=== PATIENT | male | born 1955 | race Caucasian/White ===

== ENCOUNTER → 2016-08-09 | Outpatient (CLI) | payer BC ==
[~2016-08-09] MED LIST: ALLO100T PO; AMLO-114 PO; CRDCD240 PO; HYDR50TA3 PO; METO1TAB71 PO; METO50TA16 PO; NAPR-1169 PO; POTA10CA28 PO; PRD10 PO; SULF-183 PO; ZNTT/150 PO
== END | disposition home or self-care (01) ==
LOC: C.LABPBG 15:34
PROVIDERS: ATTEND Internal Medicine
DX: Z11.59 Encounter for screening for other viral diseases (principal)

== ENCOUNTER 2016-08-22 14:36 | Inpatient (IN) | payer BC ==
[~2016-08-22] VITALS: Ht 162.6 cm; Wt 113.4 kg
[2016-08-22] MEDS ORDERED: METOPROLOL TARTRATE 1 MG/ML VIAL IV STA (14:59)
[2016-08-22] MEDS ORDERED: DILTIAZEM HCL 5 MG/ML 5 ML VIAL IV STA ×3 (15:04→15:50)
[2016-08-22] MEDS ORDERED: DILTIAZEM BOLUS / DRIP IV STA ×2 (15:04→16:24)
[2016-08-22] MEDS ORDERED: DILTIAZEM HCL INJ 125 MG in DEXTROSE 5% 100ML IV PRN (15:15)
[2016-08-22 15:17] LABS: BASO % 0.4 %; BASO ABS # 0.06 K/uL (0-0.2); COMPLETE YES; EOS % 0.1 %; HEMATOCRIT 46.2 % (42-52); IG% 0.4 %; LYMPH % 10.1 %; LYMPH ABS # 1.58 K/uL (1.2-3.4); MEAN CELL VOLUME 94.5 fL (80-100); MEAN CORPUSCULAR HEMOGLOBIN 33.9 pg (25-34); MEAN CORPUSCULAR HGB CONC 35.9 g/dl (32-36); MEAN PLATELET VOLUME 8.8 fL (7.4-10.4); MONO % 14.4 %; NEUT % 74.6 %; PLATELET COUNT 171 K/uL (130-400); RED BLOOD COUNT 4.89 M/uL (4.7-6.1); WHITE BLOOD COUNT 15.57 K/uL (4.8-10.8)
[2016-08-22 15:27] LABS: INR 1.1 (0.9-1.1); PARTIAL THROMBOPLASTIN RATIO 1.2
[2016-08-22] MEDS ORDERED: SODIUM CHLORIDE 0.9% 500ML 500 ML IV STA (15:27)
[2016-08-22] MEDS ORDERED: SULF-183 PO (15:30)
[2016-08-22] MEDS ORDERED: POTA10CA28 PO (15:30)
[2016-08-22] MEDS ORDERED: AMLO-114 PO (15:30)
[2016-08-22] MEDS ORDERED: NAPR-1169 PO (15:30)
[2016-08-22] MEDS ORDERED: HYDR50TA3 PO (15:30)
[2016-08-22] MEDS ORDERED: ZNTT/150 PO (15:30)
[2016-08-22] MEDS ORDERED: ALLO100T PO (15:30)
[2016-08-22] MEDS ORDERED: METO50TA16 PO (15:30)
--- NOTE | 2016-08-22 15:31 | DIAGNOSTIC IMAGING REPORT ---
SINGLE VIEW CHEST CLINICAL HISTORY: Atypical chest pain. FINDINGS: An AP, portable, upright chest radiograph is compared to study dated 03/30/2006. The examination is degraded by portable technique, apical lordotic positioning, large body habitus, and patient rotation. The heart is top normal for projection. There is mild atherosclerotic calcification of the thoracic aorta. The pulmonary vasculature is noncongested. Chronic elevation of the right hemidiaphragm and interstitial thickening are similar to previous. No airspace consolidation, large pleural effusion, or pneumothorax is seen. The bony thorax is grossly intact. There is chronic posttraumatic deformity of the left clavicle. Postoperative change is suggested in the left humeral head. IMPRESSION: No acute cardiopulmonary abnormality. Electronically signed by: Dimitris Collins M.D. 08/22/2016 3:30 PM Dictated Date/Time: 08/22/2016 3:29 PM
[2016-08-22 15:34] LABS: BUN/CREATININE RATIO 11.1 (10-20); CALCIUM 9.3 mg/dl (8.5-10.1); CREATININE 1.4 mg/dl (0.60-1.40); POTASSIUM 3.9 mmol/L (3.5-5.1)
[2016-08-22] MEDS ORDERED: ACETAMINOPHEN 500 MG TAB PO STA (15:45)
[2016-08-22] MEDS ORDERED: NITROGLYCERIN 0.4 MG SL PER TAB CHARGE SL PRN (16:30)
[2016-08-22] MEDS ORDERED: MAGNESIUM HYDROXIDE SUSP 30 ML UDC PO PRN (16:30)
[2016-08-22] MEDS ORDERED: ONDANSETRON INJ 2 MG/ML 2 ML VIAL IV PRN (16:30)
[2016-08-22] MEDS ORDERED: ALUMINUM/MAGNESIUM/SIMETH (MAALOX MAX) 30 ML UDC PO PRN (16:30)
[2016-08-22 16:50] VITALS: O2SAT 92; Ht 162.6 cm; Wt 113.4 kg
[2016-08-22] MEDS ORDERED: HydrALAZINE HCL 20 MG/ML VIAL IV PRN (17:00)
[2016-08-22 17:02] LABS: INFLUENZA A PCR Neg for Influ A (NEG); INFLUENZA B PCR Neg for Influ B (NEG)
[2016-08-22 17:10] VITALS: BP 98/62; PULSE 67; TEMP 37.1; O2SAT 92
--- NOTE | 2016-08-22 18:11 | DIAGNOSTIC IMAGING REPORT ---
CT SCAN OF THE BRAIN WITHOUT IV CONTRAST CLINICAL HISTORY: Headache. COMPARISON STUDY: No priors. TECHNIQUE: Unenhanced axial CT scan of the brain is performed from the vertex to the skull base. Automated dose control exposure was utilized. CT DOSE: 687.98 mGy.cm FINDINGS: Brain parenchyma: The brain parenchyma is normal in appearance. There is no hemorrhage, mass effect, or evidence of acute territorial ischemia by CT criteria. Gutierrez-white matter is preserved. No extra-axial fluid collection is seen. Ventricles, sulci, cisterns: Normal in configuration. Intracranial vasculature: The visualized intracranial vasculature at the skull base is normal in appearance. Calvarium: Unremarkable. Sinuses and mastoids: The visualized paranasal sinuses are clear. The mastoid air cells are well pneumatized. Orbits: The bony orbits are grossly intact. IMPRESSION: No acute intracranial abnormality. Electronically signed by: Dimitris Collins M.D. 08/22/2016 4:35 PM Dictated Date/Time: 08/22/2016 4:34 PM
[2016-08-22] MEDS ORDERED: NURSING VERBAL MED ORDER ONE (18:15)
--- NOTE | 2016-08-22 18:18 | HISTORY & PHYSICAL EXAMINATION ---
DATE OF ADMISSION: 08/22/2016 CHIEF COMPLAINT: Fever and generalized illness. ADMITTING DIAGNOSES: 1. Atrial flutter, rapid ventricular response. 2. Febrile illness. HISTORY OF PRESENT ILLNESS: Mr. Bonds is a 60-year-old male who does suffer from PSVT in the past. He currently was wearing a Holter monitor prescribed by Dr. Valdez to try to catch his arrhythmia. The patient states over the last 1 week's time he has had a flu-like illness with significant frontal headache and a fever up to 101. The patient says he has had myalgias and arthralgias associated with this. Preceding this symptom complex, the patient has been intermittently bothered by a pilonidal cyst at the apex of his gluteal fold over the last few months. When he did visit Dr. Valdez to begin evaluation for this flu-like illness, the pilonidal cyst looked more inflamed according to the patient. At that point in time, Dr. Valdez prescribed Bactrim-DS and the patient has been on it for approximately 1 week's time. The patient has, however, been feeling poorly with his generalized fatigue, illness and headache. He says his head is pounding. The patient has had a cough but suppresses his cough due to this pounding headache. The patient saw [facility] earlier in the day of admission when he was found to have a racing heart, presented to the ER, and was found to be in atrial flutter with rapid ventricular response. The patient received 2 boluses of Cardizem and a Cardizem drip was started at 10 mg an hour. The patient was being wheeled to CAT scan for imaging of his head due to his headache when he broke into sinus rhythm. Currently, the patient is comfortable. He says he still feels somewhat achy and his headache is better. He has had no subjective experience of the palpitations during his hospital stay but in the past he has had subjective experience of this. He states that this pilonidal cyst is generally much better. Over the last week's time; however, he says he felt like he had the flu. He has had episodes of shaking and chills that in the evening, but he has had no other sore throats, visual changes, focused pain in his abdomen, cough significant of mucus production or focused pain in his extremities. The patient is recommended for admission due to his atrial flutter, rapid ventricular response. PAST MEDICAL HISTORY: For hypertension; he has had poor cholesterol, although he is on any dyslipidemic medication; gout; GERD; previous kidney stone; previous SVT and this longstanding history of a pilonidal cyst. MEDICATIONS: Allopurinol 300 a day, Norvasc 10 mg a day, hydrochlorothiazide 50 a day, metoprolol tartrate 50 b.i.d., potassium 10 a day, currently on Bactrim-DS for 1 week, Zantac 150 at bedtime p.r.n. and naproxen p.r.n. SOCIAL HISTORY: The patient quit smoking in June 2016, says he typically would smokes cigars. He drinks alcohol occasionally. 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 FAMILY HISTORY: Positive for diabetes, but no history of heart disease. REVIEW OF SYSTEMS: Ten systems are reviewed and are negative unless listed above. PHYSICAL EXAMINATION: GENERAL: This is a pleasant gentleman. He is overweight with a BMI of 43. This limits his ability to get around. VITAL SIGNS: He is afebrile in our ER at 37.2; his heart rate was up to 150, currently is 72; respiration rate 18; BP 138/79; O2 sat 92 on 4 liters. There is no check on room air, however. HEENT: PERRL, EOMI. His oropharynx is clear. There is no exudate or erythema. His sinuses are nontender to percussion. His tympanic membranes have some clear fluid behind the left TM. NECK: Without lymphadenopathy. Trachea is midline. He has no stridor. HEART: Currently regular. There is no systolic murmur. LUNGS: Clear without wheezes or crackles. Good air movement. BACK: His spine is nontender, his CVA angle are nontender, and his pilonidal cyst, there is evidence of the cyst opening but there is no erythema, bogginess, or firmness around the cyst at the apex of his gluteal fold. ABDOMEN: Obese, normoactive bowel sounds present, is soft. I hear no bruits. I cannot assess for organomegaly due to his obesity. EXTREMITIES: Without cyanosis, clubbing or edema. NEUROLOGIC: He is awake, alert and appropriate. Cranial nerves II-XII are intact. Equal symmetrical strength and sensation in upper and lower extremities. SKIN: Other than pilonidal cyst is without lesions, growths, bruises or bleeding, but he does have chronic mycotic changes to his great toes on both feet and his toenails. LABORATORY DATA: He does have an elevation of his white count of 15,000, H\T\H of 16 and 46, platelet count of 171. Currently pending sed rate. BUN and creatinine 16 and 1.4, glucose 114. His BNP is up at 1109, normal being 900. TSH is pending. Serology for Lyme disease and influenza are pending. IMAGING DATA: Chest x-ray is no acute cardiopulmonary findings. EKG was initially atrial flutter. His CT scan of his head was performed. It is not formally read. To my vision, there is no acute hemorrhage or mass. ASSESSMENT AND PLAN: A 60-year-old male here with atrial flutter with rapid ventricular response, which is new; recent febrile illness of undetermined cause. For the atrial flutter, the patient will be maintained on his metoprolol tartrate with his Cardizem drip. We will hold his Norvasc and his hydrochlorothiazide at this time. We will augment any rate control problems and continue metoprolol and if he remains in sinus rhythm for a period of time, we will transition him to metoprolol tartrate either b.i.d. or t.i.d. at higher doses and hold the drip altogether. We will check cardiac enzymes and an echocardiogram, especially given the fact that he has an elevation of his BNP. A cardiology consultation will also be undertaken. A sed rate was drawn in case the patient may have endocarditis given the fact that he may have had a preceding pilonidal cyst infection for some time and could have had bacteremia from it. Likewise, a Lyme disease will also be undertaken. For the cyst as mentioned, this could have been bacteremia or systemic inflammatory response syndrome given the fact that he has some histories of chills and shivering. We will maintain his Bactrim at this time and blood cultures are undertaken. Because of his complaints that he felt like this with the flu, influenza will be undertaken also. Deep venous thrombosis prevention is based upon enoxaparin. The patient was continuing to be counseled with smoking cessation.
[2016-08-22] MEDS: OXYCODONE HCL IR 5 MG TAB (IMMEDIATE RELEASE) PO PRN (19:23)
[2016-08-22 19:55] VITALS: BP 114/66; PULSE 81; TEMP 37; O2SAT 95
[2016-08-22] MEDS: ENOXAPARIN 40 MG/0.4 ML SYR SC SCH (20:37)
[2016-08-22] MEDS: METOPROLOL TARTRATE 50 MG TAB PO SCH (20:37)
[2016-08-22] MEDS: SULFAMETHOXAZOLE/TRIMETHOPRIM DS 800/160MG TAB PO SCH (20:37)
--- NOTE | 2016-08-22 21:24 | EMERGENCY ROOM VISIT NOTE ---
History Report prepared by Snehal: Kendal Bruno Under the Supervision of: Dr. Amari Herrera M.D. First contact with patient: 14:50 Chief Complaint: ILLNESS Stated Complaint: SHORT OF BREATH,ABNORMAL EKG History of Present Illness The patient is a 60 year old male who presents to the Emergency Room with complaints of worsening illness that started two days ago. The patient was seen at [facility] earlier today and they recommended that he come into the ED for further evaluation. At [facility], the patient was SOB and had a fever of 101. Upon arrival to the ED, the patient's EKG revealed atrial fibrillation with RVR. The patient does not notice that his heart is racing and he denies any history of atrial fibrillation. The patient states that he has been experiencing a cold for the past couple weeks and it never seemed to go away. He developed a frontal headache two days ago that radiated into his temples. The patient is also experiencing an intermittent dry cough, but he states that he tries not to cough because it causes his head "to pound." He states that he has also been experiencing generalized body aches, chills, and sweating over last two days. He states that he feels like he had a fever the other day although he did not take his temperature. Additionally, he is experiencing intermittent nausea, but denies vomiting. The patient adds that he is experiencing intermittent chest pain along the bottom of his rib cage that started last night after he experienced dyspnea on exertion. He describes the pain as pressure and originally he was not experiencing chest pain here, but after laying down he developed some pain. The pain subsided on its own after a couple minutes and the patient is without chest pain again. The patient states that he is still experiencing shortness of breath. He denies lower extremity edema. The patient currently has a Holter monitor in place, which he states was put on one month ago. He states that he got the Holter monitor because over the last two years he has experienced three episodes, one this year and two last year, where his blood pressure drops and his pulse goes into the 160s. The patient has a history of hypertension, but denies any history of diabetes or heart disease. Source of History: patient Onset: two days ago Position: other (global) Quality: other (illness) Timing: worsening Associated Symptoms: + SOB, + chest pain (along bottom of rib cage), + chills, + cough (intermittent, dry), + fevers, + headache (frontal radiating into temples), + nausea, No vomiting Note: tachycardia, atrial fibrillation, generalized body aches, sweating, no lower extremity edema Review of Systems See HPI for pertinent positives & negatives. A total of 10 systems reviewed and were otherwise negative. Past Medical & Surgical Medical Problems: (1) Atrial fibrillation with RVR (2) Hypertension Surgical Problems: (1) History of cholecystectomy Family History No pertinent family history Social History Smoking Status: Former Smoker Marital Status: Housing Status: lives with family Current/Historical Medications Scheduled Allopurinol (Zyloprim), 200 MG PO QAM Amlodipine (Norvasc), 10 MG PO QAM Hydrochlorothiazide (Hctz), 50 MG PO QAM Metoprolol Tartrate (Lopressor) (Lopressor), 50 MG PO BID Potassium Chloride (Micro-K Ext Rel), 10 MEQ PO QAM Sulfamethoxazole-Trimethoprim (Smz-Tmp Ds), 1 TAB PO BID Scheduled PRN Naproxen (Naprosyn), 500 MG PO BID PRN for Pain Ranitidine (Zantac), 150 MG PO DAILY PRN for Indigestion Allergies Coded Allergies: No Known Allergies (Verified , 08/22/16) Physical Exam Vital Signs Date Time Temp Pulse Resp B/P Pulse Ox O2 Delivery O2 Flow Rate FiO2 08/22/16 16:17 152 138/79 92 Nasal Cannula 4.0 08/22/16 16:05 123 129/98 93 Nasal Cannula 4.0 08/22/16 15:56 147 18 153/122 92 Nasal Cannula 4.0 08/22/16 15:38 150 14 115/73 94 Nasal Cannula 4.0 08/22/16 15:32 150 17 127/78 94 Nasal Cannula 4.0 08/22/16 15:27 143 19 115/89 95 Nasal Cannula 4.0 08/22/16 15:15 96 Room Air 08/22/16 15:13 150 08/22/16 14:40 37.2 156 18 104/70 94 Room Air Physical Exam Constitutional: Vital signs reviewed. Eyes: Pupils are equal round reactive to light. Conjunctiva are noninjected. ENT: Pharynx is clear without erythema or exudate. Mucous membranes are moist. Neck supple without meningeal signs. Respiratory: Clear to auscultation bilaterally. Breath sounds are equal bilaterally. Cardiovascular: Heart rate is 150 with an irregular rhythm. No rubs or gallops. GI: Soft, nondistended and nontender. Bowel sounds are present. Musculoskeletal: No peripheral edema. No lower extremity tenderness. Integumentary: No cyanosis. Neurological: The patient is awake and alert. Cranial nerves II-XII are intact. Motor is 5 out of 5 all extremities. Sensation is intact to light touch all extremities. Normal speech. No pronator drift. Psychiatric: Normal affect. Medical Decision & Procedures ER Provider Diagnostic Interpretation: X-ray results as stated below per interpretation by me and the radiologist. Other radiology results as stated below per my review and the radiologist's interpretation: SINGLE VIEW CHEST IMPRESSION: No acute cardiopulmonary abnormality. Electronically signed by: Dimitris Collins M.D. 08/22/2016 3:30 PM Dictated Date/Time: 08/22/2016 3:[address] SCAN OF THE BRAIN WITHOUT IV CONTRAST IMPRESSION: No acute intracranial abnormality. Electronically signed by: Dimitris Collins M.D. 08/22/2016 4:35 PM Dictated Date/Time: 08/22/2016 4:34 PM Laboratory Results 08/22/16 15:00 Red Blood Count 4.89, Mean Corpuscular Volume 94.5, Mean Corpuscular Hemoglobin 33.9, Mean Corpuscular Hemoglobin Concent 35.9, Mean Platelet Volume 8.8, Neutrophils (%) (Auto) 74.6, Lymphocytes (%) (Auto) 10.1, Monocytes (%) (Auto) 14.4, Eosinophils (%) (Auto) 0.1, Basophils (%) (Auto) 0.4, Neutrophils # (Auto ) 11.60, Lymphocytes # (Auto) 1.58, Monocytes # (Auto) 2.24, Eosinophils # (Auto ) 0.02, Basophils # (Auto) 0.06 08/22/16 15:00 Test 08/22/16 15:00 08/22/16 15:12 08/22/16 15:23 White Blood Count 15.57 K/uL (4.8-10.8) Red Blood Count 4.89 M/uL (4.7-6.1) Hemoglobin 16.6 g/dL (14.0-18.0) Hematocrit 46.2 % (42-52) Mean Corpuscular Volume 94.5 fL (80-100) Mean Corpuscular Hemoglobin 33.9 pg (25-34) Mean Corpuscular Hemoglobin Concent 35.9 g/dl (32-36) Platelet Count 171 K/uL (130-400) Mean Platelet Volume 8.8 fL (7.4-10.4) Neutrophils (%) (Auto) 74.6 % Lymphocytes (%) (Auto) 10.1 % Monocytes (%) (Auto) 14.4 % Eosinophils (%) (Auto) 0.1 % Basophils (%) (Auto) 0.4 % Neutrophils # (Auto) 11.60 K/uL (1.4-6.5) Lymphocytes # (Auto) 1.58 K/uL (1.2-3.4) Monocytes # (Auto) 2.24 K/uL (0.11-0.59) Eosinophils # (Auto) 0.02 K/uL (0-0.5) Basophils # (Auto) 0.06 K/uL (0-0.2) RDW Standard Deviation 46.5 fL (36.4-46.3) RDW Coefficient of Variation 13.5 % (11.5-14.5) Immature Granulocyte % (Auto) 0.4 % Immature Granulocyte # (Auto) 0.07 K/uL (0.00-0.02) Erythrocyte Sedimentation Rate 58 mm/hr (0-14) Prothrombin Time 12.0 SECONDS (9.0-12.0) Prothromb Time International Ratio 1.1 (0.9-1.1) Activated Partial Thromboplast Time 31.0 SECONDS (21.0-31.0) Partial Thromboplastin Ratio 1.2 Anion Gap 13.0 mmol/L (3-11) Est Creatinine Clear Calc Drug Dose 65.8 ml/min Estimated GFR () 63.3 Estimated GFR (Non- 54.6 BUN/Creatinine Ratio 11.1 (10-20) Calcium Level 9.3 mg/dl (8.5-10.1) Pro-B-Type Natriuretic Peptide 1109 pg/ml (0-900) Thyroid Stimulating Hormone (TSH) 3.180 uIu/ml (0.300-4.500) Lyme Disease IgG Antibody NEG (NEG) Hepatitis C Antibody Screen NEG (NEG) Bedside Troponin I 0.010 ng/ml (0-0.045) Influenza Type A (RT-PCR) Neg for Influ A (NEG) Influenza Type B (RT-PCR) Neg for Influ B (NEG) Laboratory results as reviewed by me. Medications Administered Medications (Trade) Dose Ordered Sig/Bernie Route Start Time Stop Time Status Last Admin Dose Admin Diltiazem HCl 10 mg 10 mg NOW STAT IV 08/22/16 15:04 08/22/16 15:06 DC 08/22/16 15:04 10 MG Diltiazem HCl/ Dextrose (Cardizem Inj/D5 100ml) 125 ml @ 0 mls/hr Q0M PRN IV 08/22/16 15:15 08/22/16 18:18 DC 08/22/16 15:24 10 MLS/HR Diltiazem HCl 10 mg 10 mg NOW STAT IV 08/22/16 15:27 08/22/16 15:28 DC 08/22/16 15:30 10 MG Sodium Chloride (Nss 500ml) 500 ml @ 999 mls/hr Q31M STAT IV 08/22/16 15:27 08/22/16 15:57 DC 08/22/16 15:30 999 MLS/HR Acetaminophen (Tylenol Tab) 1,000 mg NOW STAT PO 08/22/16 15:45 08/22/16 15:46 DC 08/22/16 15:50 1,000 MG Diltiazem HCl (Cardizem Inj) 10 mg NOW STAT IV 08/22/16 15:50 08/22/16 15:51 DC 08/22/16 15:55 10 MG ECG Indication: chest pain, tachycardia Rate (beats per minute): 143 Rhythm: atrial fibrillation (with RVR) Findings: left axis deviation, other (LBBB) Comparison ECG Date: no prior available Change: Second EKG on 08/22/2016 revealed atrial flutter with 2 to 1 conduction, rate of 149, LBBB ED Course 1454: The patient was evaluated in room C7. A complete history and physical exam was performed. 1504: Ordered Diltiazem HCl 10 mg IV 1515: Ordered Diltiazem [id number] mg/Dextrose 125 ml @ 0 mls/hr Protocol IV 1522: I reassessed the patient. His heart rate is 150 and his blood pressure is 107/53. He received 10 mg of Cardizem and they are starting the Cardizem drip now. The patient is not experiencing any chest pain at this time. 1523: The charge nurse called the patient's Holter monitor event monitoring company. They said that there are no recordings for the past two days and the most recent recording was on August 20, which showed a normal sinus rhythm. 1527: Ordered Sodium Chloride 500 ml @ 999 mls/hr IV, Diltiazem HCl 10 mg IV 1535: I reassessed and updated the patient. I informed him that his troponin was negative. His heart rate is 104 and his blood pressure is 115/73. I asked the nurse to get a repeat EKG. He denies any chest pain. 1545: Ordered Tylenol Tab 1000 mg PO 1548: I spoke with Dr. Cruz of the [facility]. We discussed the patient and his results. The patient will be further evaluated by him. 1549: The nurse informed me that the patient's heart rate went back up when I left the room. I am going to order another Cardizem bolus. 1550: Ordered Diltiazem HCl 10 mg IV 1601: Upon reevaluation, the patient is resting comfortably. His heart rate is 114 and his systolic blood pressure is 127. He has no chest discomfort, but he is still complaining of a headache. I discussed tonight's findings with him. He verbalized agreement of the treatment plan. The patient will be evaluated for further management. Medical Decision This is a 60-year-old male who presents with chest discomfort, fever, flulike symptoms and tachycardia. Differential diagnosis includes unstable angina, MS, influenza, pneumonia, sepsis, dysrhythmia, atrophic fibrillation. I did perform a limited focused review of portions of the patient's old chart on the electronic medical record. The patient has had no recent pertinent visits to this hospital. I did evaluate the patient as noted above. The patient is presenting with dyspnea on exertion since yesterday. He also developed intermittent chest pressure. He is currently not having any chest pressure. He states he has had a fever and has been sick for several weeks. He does complain of a headache but he is neurologically intact and does not have any meningeal signs. He was seen at an urgent care center and sent here because he had a left bundle-branch block on 12-lead EKG and a fever of 101. IV access was established. The patient was placed on a continuous threat monitoring analyst. The patient has tachycardia. He is mildly hypotensive. I did order and personally review the patient's 12-lead EKG and chest x-ray as described above. He has atrial fibrillation with RVR. I did treat him with several doses of Cardizem IV. He received 3 boluses and was started on a drip. He was given normal saline IV as he had transient hypotension from the Cardizem. His heart rate did improve significantly and he remained chest pain-free. He did have a left bundle branch block but no signs of acute ischemia on the 12-lead EKG. I did order and review the patient's blood work as noted in the electronic medical record. His white blood cell count is 15,000. Troponin is negative. The patient states his headache is improved but he has been having a headache since Tuesday. As the patient will likely be anticoagulated because of A. fib, I did order a CT of the head. I did review the images myself as well as the radiology report as described above. There is no evidence of intracranial hemorrhage. I did reassess the patient multiple times in the ED. His heart rate improved significantly. He remained on the Cardizem drip. I did discuss the case with the hospitalist and special education case manager for admission. Consults Time Called: [phone] Consulting Physician: Dr. Cruz - [facility] Returned Call: [phone] Cruz of the [facility]. We discussed the patient and his results. The patient will be further evaluated by him. Impression Primary Impression: Atrial fibrillation with rapid ventricular response Additional Impressions: Fever Exertional chest pain Headache Critical Care I have personally spent 35 minutes of critical care time in the direct management of this patient. This includes bedside care, interpretation of diagnostic studies, and testing, discussion with consultants, patient, and family members, and other required patient management activities. This 35 minutes is in excess of all separately billable procedures. Scribe Attestation The scribe's documentation has been prepared under my direct and personally reviewed by me in its entirety. I confirm that the note above accurately reflects all work, treatment, procedures, and medical decision making performed by me. Departure Information Dispostion Being Evaluated By Hospitalist Franco Staley M.D. (PCP) Patient Instructions My [facility] Problem Qualifiers Additional Impressions: Fever Fever type: unspecified Qualified Codes: R50.9 - Fever, unspecified Headache Headache type: unspecified Headache chronicity pattern: acute headache Intractability: not intractable Qualified Codes: R51 - Headache
[2016-08-22] MEDS: MoRPHine SULFATE 2 MG/ML CARP IV PRN (21:51)
[2016-08-22 23:16] LABS: CKMB/CK RATIO 0.7 (0-3.0)
[2016-08-22 23:52] VITALS: BP 120/76; PULSE 95; TEMP 37.2; O2SAT 93
[2016-08-23] VITALS (13 sets, daily range): BP systolic 102–119; BP diastolic 62–73; PULSE 65–155; TEMP 36.6–39.2; O2SAT 88–93
[2016-08-23] MEDS: METOPROLOL TARTRATE 1 MG/ML VIAL IV PRN (02:19)
[2016-08-23] MEDS ORDERED: DILTIAZEM BOLUS / DRIP IV STA (02:35)
[2016-08-23] MEDS ORDERED: DILTIAZEM HCL 5 MG/ML 5 ML VIAL IV SCH (02:45)
[2016-08-23] MEDS: DILTIAZEM HCL INJ 125 MG in DEXTROSE 5% 100ML IV PRN ×3 (02:47→12:04)
[2016-08-23] MEDS: ACETAMINOPHEN 325 MG TAB PO PRN ×2 (03:19→15:31)
[2016-08-23] MEDS: MoRPHine SULFATE 2 MG/ML CARP IV PRN (04:31)
[2016-08-23] MEDS: METOPROLOL TARTRATE 50 MG TAB PO SCH ×3 (06:00→21:37)
[2016-08-23 06:52] LABS: HEMATOCRIT 45.8 % (42-52); MEAN CORPUSCULAR HEMOGLOBIN 33.5 pg (25-34); MEAN CORPUSCULAR HGB CONC 35.6 g/dl (32-36); MEAN PLATELET VOLUME 9.1 fL (7.4-10.4); PLATELET COUNT 168 K/uL (130-400); RED BLOOD COUNT 4.87 M/uL (4.7-6.1); WHITE BLOOD COUNT 11.17 K/uL (4.8-10.8)
[2016-08-23 07:30] LABS: BUN/CREATININE RATIO 14.6 (10-20); CALCIUM 8.6 mg/dl (8.5-10.1); CREATININE 1.7 mg/dl (0.60-1.40); POTASSIUM 3.6 mmol/L (3.5-5.1)
[2016-08-23 07:34] LABS: CHOLESTEROL/HDL RATIO 4.7; CKMB/CK RATIO 0.5 (0-3.0)
[2016-08-23] MEDS: SULFAMETHOXAZOLE/TRIMETHOPRIM DS 800/160MG TAB PO SCH (08:05)
[2016-08-23] MEDS: ASPIRIN 81 MG ECTAB PO SCH (08:05)
[2016-08-23] MEDS ORDERED: ALLOPURINOL 100 MG TAB PO SCH (09:00)
[2016-08-23] MEDS ORDERED: PERFLUTREN LIPID MICROSPHERE (DEFINITY) IV ONE (09:17)
--- NOTE | 2016-08-23 10:15 | Progress Note ---
Subjective Date of Service: Aug 23, 2016. (María Vaz PA-C) Subjective Pt evaluation today including: conversation w/ patient, physical exam, chart review, lab review, review of studies, review of inpatient medication list Patient seen and evaluated. Patient in and out of atrial flutter overnight. Documented fever of 39.2 this morning and treated with Tylenol. Patient reporting chills and diaphoresis overnight. Continues to complain of a frontal headache that he describes as squeezing in bandlike suggestive of tension headache. -- No meningeal signs appreciated on exam Reports history of kidney stones and states that he gets intermittent flank pain and has noticed dark urine -- Reports these are similar signs he had prior to past stones Reports bleeding with pilonidal cyst but denies any pain (María Vaz PA-C) Problem List Medical Problems: (1) Atrial fibrillation with rapid ventricular response Status: Acute (2) Exertional chest pain Status: Acute (3) Fever Status: Acute (4) Headache Status: Acute (5) Hypertension Status: Chronic Surgical Problems: (1) History of cholecystectomy Status: Chronic (María Vaz PA-C) Review of Systems Constitutional: + chills, + fever, + problem reported (frontal headache), + sweats Eyes: No worsening of vision ENT: No nasal symptoms, No sore throat, No trouble swallowing Respiratory: + dyspnea on exertion, No cough, No dyspnea at rest Cardiac: No chest pain Abdomen: + nausea, No constipation, No diarrhea, No pain, No vomiting Musculoskeletal: + joint pain, + muscle pain Male : No dysuria Skin: No rash (María Vaz PA-C) Medications Current Inpatient Medications Medications (Trade) Dose Ordered Sig/Bernie Route Start Time Stop Time Status Last Admin Dose Admin Enoxaparin Sodium (Lovenox Inj) 40 mg Q24H SC 08/22/16 21:00 09/21/16 20:59 08/22/16 20:37 40 MG Acetaminophen (Tylenol Tab) 650 mg Q4H PRN PO 08/22/16 16:30 09/21/16 16:29 08/23/16 03:19 650 MG Al Hydrox/Mg Hydrox/Simethicone (Maalox Max Susp) 15 ml Q4H PRN PO 08/22/16 16:30 09/21/16 16:29 Magnesium Hydroxide (Milk Of Magnesia Susp) 30 ml Q12H PRN PO 08/22/16 16:30 09/21/16 16:29 Ondansetron HCl (Zofran Inj) 4 mg Q6H PRN IV 08/22/16 16:30 09/21/16 16:29 Nitroglycerin (Nitrostat Tab) 0.4 mg UD PRN SL 08/22/16 16:30 09/21/16 16:29 Aspirin (Ecotrin Tab) 81 mg QAM PO 08/23/16 09:00 09/22/16 08:59 08/23/16 08:05 81 MG Metoprolol Tartrate (Lopressor Tab) 50 mg Q8 PO 08/22/16 22:00 09/21/16 21:59 08/23/16 08:05 50 MG Metoprolol Tartrate (Lopressor Iv) 5 mg Q4H PRN IV 08/22/16 17:00 09/21/16 16:59 08/23/16 02:19 5 MG Hydralazine HCl (HydrALAZINE INJ) 10 mg Q4H PRN IV 08/22/16 17:00 09/21/16 16:59 Trimethoprim/ Sulfamethoxazole (Septra Ds 800/ 160MG Tab) 1 tab Q12 PO 08/22/16 21:00 09/01/16 20:59 08/23/16 08:05 1 TAB Morphine Sulfate (MoRPHine SULFATE INJ) 4 mg Q4H PRN IV 08/22/16 18:45 09/05/16 18:44 Morphine Sulfate (MoRPHine SULFATE INJ) 2 mg Q4H PRN IV 08/22/16 18:45 09/05/16 18:44 08/23/16 04:31 2 MG Oxycodone HCl (Roxicodone Immediate Rel Tab) 10 mg Q6 PRN PO 08/22/16 18:45 09/05/16 18:44 08/22/16 19:23 10 MG Allopurinol 200 mg 200 mg HS PO 08/23/16 21:00 09/22/16 20:59 Diltiazem HCl/ Dextrose (Cardizem Inj/D5 100ml) 125 ml @ 0 mls/hr Q0M PRN IV 08/23/16 02:45 09/22/16 02:44 08/23/16 12:04 10 MLS/HR (María Vaz PA-C) Objective Vital Signs Date Time Temp Pulse Resp B/P Pulse Ox O2 Delivery O2 Flow Rate FiO2 08/23/16 08:00 Room Air 08/23/16 07:44 37.2 76 16 107/67 93 Room Air 08/23/16 06:01 119/68 08/23/16 04:30 36.9 92 108/62 92 Nasal Cannula 2.0 08/23/16 04:30 36.9 08/23/16 04:00 Room Air 08/23/16 03:15 39.2 147 18 102/67 88 Room Air 08/23/16 03:00 149 109/71 08/23/16 02:45 155 108/68 08/23/16 02:19 150 116/66 08/22/16 23:59 Room Air 08/22/16 23:52 37.2 95 18 120/76 93 Room Air 08/22/16 20:00 Room Air 08/22/16 19:55 37.0 81 18 114/66 95 Room Air 08/22/16 17:10 37.1 67 18 98/62 92 Room Air 08/22/16 16:50 92 Room Air 08/22/16 16:17 152 138/79 92 Nasal Cannula 4.0 08/22/16 16:05 123 129/98 93 Nasal Cannula 4.0 08/22/16 15:56 147 18 153/122 92 Nasal Cannula 4.0 08/22/16 15:38 150 14 115/73 94 Nasal Cannula 4.0 08/22/16 15:32 150 17 127/78 94 Nasal Cannula 4.0 08/22/16 15:27 143 19 115/89 95 Nasal Cannula 4.0 08/22/16 15:15 96 Room Air 08/22/16 15:13 150 08/22/16 14:40 37.2 156 18 104/70 94 Room Air (María Vaz PA-C) Physical Exam General Appearance: WD/WN, no apparent distress Eyes: sclerae normal ENT: hearing grossly normal Neck: supple, no adenopathy, thyroid normal, no JVD, trachea midline Respiratory/Chest: lungs clear, normal breath sounds, no respiratory distress, no accessory muscle use Cardiovascular: regular rate, rhythm, no gallop, no murmur Abdomen: normal bowel sounds, non tender, soft Extremities: no pedal edema, no calf tenderness Neurologic/Psychiatric: alert, oriented x 3 Skin: normal color, warm/dry, + pertinent finding (pilonidal cyst with punctate opening and evidence of minimal bleeding; no evidence of purulent drainage; surround skin without erythema; no tenderness to palpation) (María Vaz, GABE) Laboratory Results Last 24 Hours Test 08/22/16 15:00 08/22/16 15:12 08/22/16 15:23 08/22/16 22:25 White Blood Count 15.57 K/uL Red Blood Count 4.89 M/uL Hemoglobin 16.6 g/dL Hematocrit 46.2 % Mean Corpuscular Volume 94.5 fL Mean Corpuscular Hemoglobin 33.9 pg Mean Corpuscular Hemoglobin Concent 35.9 g/dl Platelet Count 171 K/uL Mean Platelet Volume 8.8 fL Neutrophils (%) (Auto) 74.6 % Lymphocytes (%) (Auto) 10.1 % Monocytes (%) (Auto) 14.4 % Eosinophils (%) (Auto) 0.1 % Basophils (%) (Auto) 0.4 % Neutrophils # (Auto) 11.60 K/uL Lymphocytes # (Auto) 1.58 K/uL Monocytes # (Auto) 2.24 K/uL Eosinophils # (Auto) 0.02 K/uL Basophils # (Auto) 0.06 K/uL RDW Standard Deviation 46.5 fL RDW Coefficient of Variation 13.5 % Immature Granulocyte % (Auto) 0.4 % Immature Granulocyte # (Auto) 0.07 K/uL Erythrocyte Sedimentation Rate 58 mm/hr Prothrombin Time 12.0 SECONDS Prothromb Time International Ratio 1.1 Activated Partial Thromboplast Time 31.0 SECONDS Partial Thromboplastin Ratio 1.2 Sodium Level 135 mmol/L Potassium Level 3.9 mmol/L Chloride Level 98 mmol/L Carbon Dioxide Level 24 mmol/L Anion Gap 13.0 mmol/L Blood Urea Nitrogen 16 mg/dl Creatinine 1.40 mg/dl Est Creatinine Clear Calc Drug Dose 65.8 ml/min Estimated GFR () 63.3 Estimated GFR (Non- 54.6 BUN/Creatinine Ratio 11.1 Random Glucose 114 mg/dl Calcium Level 9.3 mg/dl Pro-B-Type Natriuretic Peptide 1109 pg/ml Thyroid Stimulating Hormone (TSH) 3.180 uIu/ml Lyme Disease IgG Antibody NEG Hepatitis C Antibody Screen NEG Bedside Troponin I 0.010 ng/ml Influenza Type A (RT-PCR) Neg for Influ A Influenza Type B (RT-PCR) Neg for Influ B Total Creatine Kinase 123 U/L Creatine Kinase MB 0.9 ng/ml Creatine Kinase MB Ratio 0.7 Troponin I 0.019 ng/ml Test 08/23/16 06:33 White Blood Count 11.17 K/uL Red Blood Count 4.87 M/uL Hemoglobin 16.3 g/dL Hematocrit 45.8 % Mean Corpuscular Volume 94.0 fL Mean Corpuscular Hemoglobin 33.5 pg Mean Corpuscular Hemoglobin Concent 35.6 g/dl RDW Standard Deviation 46.8 fL RDW Coefficient of Variation 13.6 % Platelet Count 168 K/uL Mean Platelet Volume 9.1 fL Sodium Level 135 mmol/L Potassium Level 3.6 mmol/L Chloride Level 101 mmol/L Carbon Dioxide Level 22 mmol/L Anion Gap 12.0 mmol/L Blood Urea Nitrogen 25 mg/dl Creatinine 1.70 mg/dl Est Creatinine Clear Calc Drug Dose 53.4 ml/min Estimated GFR () 50.0 Estimated GFR (Non- 43.2 BUN/Creatinine Ratio 14.6 Random Glucose 113 mg/dl Calcium Level 8.6 mg/dl Total Creatine Kinase 109 U/L Creatine Kinase MB 0.5 ng/ml Creatine Kinase MB Ratio 0.5 Troponin I 0.024 ng/ml Triglycerides Level 169 mg/dl Cholesterol Level 149 mg/dl HDL Cholesterol 32 mg/dl LDL Cholesterol, Calculated 83 mg/dl VLDL Cholesterol, Calculated 34 mg/dl Cholesterol/HDL Ratio 4.7 (María Vaz, PA-C) Assessment and Plan Mr. Bonds is a 60 y/o male with HTN, Kidney Stones, Gout, SVT, and a Pilonidal Cyst who presents due to flu-like symptoms and tachycardia. He is noted to be febrile with A Flutter on monitor Fever of Unknown Etiology: Myalgias/Arthralgias/Tension RYAN - Sed rate elevated at 58, Lyme negative, influenza PCR negative - Febrile at 39.2 overnight and treated with Tylenol; leukocytosis trending down - BCx - pending - UCx - without growth - Repeat urinalysis to evaluate for sediment in the setting of a kidney stone -- Will pursue further imaging pending urinalysis - Obtain a procalcitonin Atrial Flutter with RVR: Currently NSR - Cardiac enzymes - negative - Echo - pending - ASA 81 mg daily - Diltiazem drip - plan to D/C when rhythm is stabilized -- Continue to hold amlodipine 10 mg daily while on drip - Metoprolol 50 mg TID with Metoprolol 5 mg IV PRN - Consult Cardiology - appreciate recommendations Pilonidal Cyst: - Bactrim 1 tablet BID - Consideration as source of fever however site is pain free in no obvious signs of infection - May need possible surgical consultation? HTN: - Hold HCTZ 50 mg daily - Cover with hydralazine PRN Gout: - No evidence of active gout or erythematous joints suggesting cause of fever - Allopurinol 200 mg daily DVT Prophylaxis: - Lovenox 40 mg SC daily Code Status: FULL RESUSCITATION Disposition: - Possible DC 1-2 days Continued [facility] stay due to: fever Discharge planning: home (María Vaz, DUGLASC) Attending Attestation: Pt seen/examined, chart reviewed, care plan d/w PA María Vaz. I agree w/ the mackey components of her documentation. Pt "just feels terrible." Continues with headache, fatigue, fever, chills, sweats, anorexia. Denies neck pain. Minimal cough. No abd pain, nausea, emesis. No tick bites recently or in the past. No recent travel or sick contacts. VSS, febrile gen - nontoxic, a/o x 3 neck - lymphadenopathy b/l, each about 1.5cm in size; NO MENINGISMUS or RIGIDITY heart - RRR, s1, s2 lungs - CTA b/l with ? rales right base abd - soft, liver edge mildly palpable, no spleen, obese ext - no edema lymphadenopathy - no axillary or inguinal lymphadenopathy skin - no rash; pilonidal cyst tract/opening in gluteal cleft; thin serous drainage noted; NO erythema or surrounding fluctuance; NO tenderness to palpation labs - sed rate 58 Cr 1.7 WBC 11,000 blood cx's neg to date urine cx neg A/P: 1. Fever - unknown origin - has SIRS, possible sepsis check KUB x-rays to exclude stones check CXR to r/o pneumonia missed on previous chest film consider CT chest/abd/pelvis if plain films inconclusive if still no source then consider viral studies and tick-borne illness (HIV, ehrlichia, CMV, EBV, parvo, etc) consider drug fever (bactrim) he has NO signs of meningitis clinically - defer on LP for now, but low threshold for doing it with persistent symptoms the pilonidal cyst appears stable and I do not feel it represents the source for infection would d/c the bactrim place on IV abx pending cultures 2. acute kidney injury - 2nd to sepsis? bactrim? other? restart IVF BMP am 3. a. flutter/fib - appreciate cardiology consult & recs Lesa FERRO MD (Gabe Ferro MD)
--- NOTE | 2016-08-23 13:19 | Clinical Documentation Query ---
JAZLYN Tate : CLINICAL DOCUMENTATION QUERY Patient is a 60 year old male admitted for the evaluation and treatment of atrial flutter with RVR and febrile illness of undetermined cause. Admission BUN and creatinine were 16 mg/dl and 1.40 mg/dl. Values 06/10/16 were 18 mg/dl and 1.10 mg/dl. Repeat testing this a.m. (08/23) demonstrated values of 25 mg/dl and 1.70 mg/dl. He is being monitored by serial chemistries and at risk due to medications, atrial flutter with RVR, and poor intake associated with ongoing febrile illness. In your clinical opinion is this patient being managed for: (x ) Acute kidney failure ( ) Other explanation of clinical findings (Please Explain) ( ) Unable to determine (Please Define) ( ) Need to Discuss ( ) Not Agree The medical record reflects the following clinical findings, treatment, and risk factors. Clinical Indicators: As above Treatment: IVF, serial chemistries. Risk Factors: Medications, atrial flutter with RVR, poor intake associated with febrile illness Please clarify and document your clinical opinion in the progress notes and discharge summary. Terms such as "probable", "suspected", "likely", "questionable", "possible", or "still to be ruled out" are acceptable. IF IN AGREEMENT, YOU MUST DOCUMENT ABOVE DIAGNOSTIC STATEMENT IN DAILY PROGRESS NOTES AND DISCHARGE SUMMARY. This document is not part of the patient's record. Thank You, Gonzalez Paniagua, WILLAM [phone]
--- NOTE | 2016-08-23 14:22 | CARDIOLOGY CONSULTATION REPORT ---
DATE OF CONSULTATION: 08/23/2016 REASON FOR CONSULTATION: 1. Paroxysmal atrial flutter/paroxysmal atrial fibrillation with RVR. 2. Newly diagnosed LBBB. 3. CHADS-VASc score is 2. HISTORY OF PRESENT ILLNESS: Mr. Bonds is a very pleasant 60-year-old white male with a history of longstanding Hypertension, untreated Dyslipidemia, obesity, GERD, gout, nephrolithiasis, pilonidal cyst with recent drainage, and a history of PSVT (diagnosed a couple of years ago) who presented acutely to [facility] with an acute febrile illness along with newly diagnosed Atrial Flutter with RVR. The patient states that for the past week or more, he has been experiencing fever, frontal headaches, myalgias, arthralgias and general malaise. He was also being treated for drainage from his pilonidal cyst. He had been on antibiotics. Because he felt poorly, he sought medical treatment at [facility]. He was identified to have an elevated heart rate, and an EKG confirmed the presence of Atrial Flutter with 2:1 AV conduction. He was subsequently referred to our Emergency Room. The patient was placed on IV diltiazem and also started on oral metoprolol and has subsequently converted back to a normal sinus rhythm. His echocardiogram is pending, and we will need to evaluate his LV systolic function in light of his recently diagnosed LBBB. The patient offers no complaints at the present time. He specifically denies any chest pain, heaviness, tightness or pressure. He denies any neck, jaw, back or arm pain. He has not experienced any shortness of breath, unusual dyspnea on exertion, orthopnea or PND. Does not have any palpitations currently but could feel them with his atrial fibrillation and atrial flutter. He denies any syncope, but has been having "dizziness" for the past week whenever he bends over and stands up very quickly. The patient denies any history of bleeding disorders or peptic ulcer disease. He has no history of stroke or mini stroke. MEDICATIONS: 1. Allopurinol 200 mg daily. 2. Aspirin 81 mg daily. 3. Diltiazem drip. 4. Lopressor 50 mg p.o. q. 8 hours. 5. Lovenox 40 mg subcutaneous injection every 24 hours. 6. Septra DS 1 tablet b.i.d. 7. Morphine sulfate 2-4 mg IV q. 4 hours p.r.n. for pain. 8. OxyIR 10 mg p.o. q. 6 hours p.r.n. for pain. 9. IV Lopressor 5 mg q. 4 hours p.r.n. for ventricular rate greater than 120 beats per minute. 10. Hydralazine 10 mg IV q. 4 hours p.r.n. for elevated blood pressure. 11. Tylenol p.r.n. 12. Maalox Max. 13. Milk of magnesia p.r.n. 14. Zofran p.r.n. 15. Sublingual nitroglycerin p.r.n. ALLERGIES: NKDA. PAST MEDICAL HISTORY: 1. Longstanding hypertension. 2. Untreated dyslipidemia. 3. Impaired fasting glucose. 4. GERD. 5. Gout. 6. History of nephrolithiasis. 7. Currently draining pilonidal cyst. 8. Status post laparoscopic cholecystectomy. 9. History of rotator cuff repair. 10. Paroxysmal supraventricular tachycardia per patient. I do not have any of his old tracings. 11. Newly diagnosed LBBB. 12. Newly diagnosed paroxysmal atrial flutter/paroxysmal atrial fibrillation with RVR, he has currently converted back to a normal sinus rhythm. SOCIAL HISTORY: The patient is . 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 He previously smoked cigars but quit in June 2014. Drinks alcohol on occasion. FAMILY HISTORY: Significant for diabetes mellitus, no family history of premature coronary artery disease. PHYSICAL EXAMINATION: VITAL SIGNS: Temperature is 37.2 degrees Celsius, pulse is 76 and regular, respiratory rate is 16 and unlabored, blood pressure is 107/67. SpO2 is 93% on room air. GENERAL: The patient is in no acute distress. HEENT: Head is atraumatic, normocephalic. EOMs intact. Sclerae anicteric. Facies symmetric. No perioral cyanosis. Mucous membranes moist. NECK: Without thyromegaly, adenopathy or JVD. Carotid upstrokes +2 bilaterally without bruits. CHEST AND LUNGS: Clear to auscultation throughout all lung rojo. No wheezes, rales or rhonchi. CARDIOVASCULAR: S1 and S2 are regular, distant without obvious murmur, gallop or rub. PMI is nonpalpable. No lifts, heaves, or thrills. No abdominal aortic or renal bruits. ABDOMINAL EXAMINATION: Bowel sounds present. No masses, organomegaly or tenderness. EXTREMITIES: Without clubbing or cyanosis. Trace ankle edema on the left, none on the right. Intact posterior tibial and radial pulses bilaterally. NEUROLOGIC: The patient is awake, alert and oriented. Pleasant and cooperative. Answers questions appropriately. Speech is clear. Normal movement in all 4 extremities. Gait pattern not assessed. Echocardiogram is pending. EKGs have shown sinus rhythm to AFib with RVR, atrial flutter with RVR and a left bundle branch block pattern. LABORATORY DATA: White blood cell count is 11.17, hemoglobin 16.3 g/dL, hematocrit 45.8%, platelet count 168,000. Sodium is 135 mmol/L, potassium 3.6 mmol/L, BUN 25 mg/dL, creatinine 1.70 mg/dL. Random glucose 113 mg/dL, total CKs are 109 and 123 units/L with respect to CK-MBs of 0.5 and 0.9 ng/mL. Troponin I levels are 0.024, 0.019 and 0.010 ng/mL. Total cholesterol is 149 mg/dL with an HDL of 32 mg/dL and an LDL cholesterol of 83 mg/dL. TSH is normal at 3.180 uIU/mL. Lyme titer negative. Negative for influenza A or influenza B. Sedimentation rate is markedly elevated at 58 mm/hour. ASSESSMENT: 1. Newly diagnosed Paroxysmal Atrial Flutter with rapid ventricular response, Paroxysmal Atrial Fibrillation with rapid ventricular response. 2. History of PSVT 3. Newly diagnosed LBBB. 4. Hypertension. 5. Dyslipidemia. 6. No history of stroke or mini stroke. 7. No angina pectoris or anginal equivalent symptoms. 8. No signs or symptoms of heart failure. PLAN: 1. The patient has converted back to a normal sinus rhythm spontaneously. 2. Continue Lopressor 50 mg p.o. q. 8 hours. 3. Convert to oral calcium channel javi. 4. Recommend discharging to home on Eliquis or Xarelto to reduce the risk of stroke associated with atrial fibrillation / atrial flutter. 5. We had very long discussion regarding the natural history of atrial fibrillation and atrial flutter, what each of these rhythms is, and various management strategies. He verbalized understanding of this discussion. 6. At some point, we would consider an EP study with possible ablation. Theoretically, his SVT could have occurred and led to his various atrial dysrhythmias. Therefore, doing an ablation of an accessory pathway may help prevent these atrial dysrhythmias. Could also consider an atrial flutter ablation. 7. I will discuss further with Dr. Crespo. 8. Await echocardiogram results. 9. We will continue to follow along while hospitalized. DERIK
--- NOTE | 2016-08-23 15:02 | DIAGNOSTIC IMAGING REPORT ---
KUB CLINICAL HISTORY: eval for any kidney stone nephrocalcinosis COMPARISON STUDY: No previous studies for comparison. FINDINGS: Bilateral renal calcifications. These measure from 2 to 6 mm. No definite perivertebral calcifications. Bowel pattern is nonobstructive. IMPRESSION: Bilateral nephrocalcinosis. Electronically signed by: Kurt Garcia M.D. 08/23/2016 3:01 PM Dictated Date/Time: 08/23/2016 3:00 PM
[2016-08-23] MEDS: OXYCODONE HCL IR 5 MG TAB (IMMEDIATE RELEASE) PO PRN ×2 (15:33→21:38)
[2016-08-23] MEDS: MoRPHine SULFATE 4 MG/ML 1 ML CARP\\VIAL IV PRN (15:33)
--- NOTE | 2016-08-23 15:39 | DIAGNOSTIC IMAGING REPORT ---
TWO VIEW CHEST CLINICAL HISTORY: Atypical chest pain.. FINDINGS: PA and lateral chest radiographs are compared to study dated 08/22/2016. The heart appears mildly enlarged. The pulmonary vasculature is noncongested. Mild elevation of right hemidiaphragm is unchanged and there is bibasilar atelectasis. No airspace consolidation or pleural effusion is seen. There is no pneumothorax. The bony thorax appears intact. Surgical anchors are present in the left humeral head. Cholecystectomy clips are noted in the right upper quadrant. IMPRESSION: Mild cardiac enlargement with no acute cardiopulmonary abnormality. Electronically signed by: Dimitris Collins M.D. 08/23/2016 3:38 PM Dictated Date/Time: 08/23/2016 3:36 PM
--- NOTE | 2016-08-23 16:34 | DIAGNOSTIC IMAGING REPORT ---
ABDOMEN AND PELVIS CT WITHOUT CONTRAST CT DOSE: 2442.23 mGy.cm HISTORY: Generalized abdominal pain. R/O Movement of Renal Calculi and Stone Obstruction TECHNIQUE: Multiaxial CT images of the abdomen and pelvis were performed without the use of intravenous and oral contrast according to the standard department stone protocol. COMPARISON STUDY: KUB 08/23/2016. FINDINGS: Mild bibasilar subsegmental atelectasis. Mild subcarinal lymphadenopathy which is partially imaged on this study. Tiny fat-containing umbilical hernia. Cholecystectomy. Hepatic steatosis. The unenhanced spleen, adrenal glands, and pancreas are unremarkable. Multiple subcentimeter retroperitoneal and mesenteric lymph nodes. There is also mild periportal lymphadenopathy. Dominant periportal lymph node measures 4.0 x 1.6 cm. Normal bladder. Suboptimal evaluation for bowel pathology due to the lack of intravenous and oral contrast. However, there is no definite bowel wall thickening or obstruction. Normal appendix. Multiple bilateral renal calculi. The largest stone is seen within the lower pole of the right kidney and measures 6 mm. No ureteral stones. No hydronephrosis. There is a 8 mm stone within the right renal pelvis. This does not result in obstruction. IMPRESSION: 1. Bilateral nephrolithiasis. There is also an 8 mm stone within the right renal pelvis. No hydronephrosis. No ureteral calculi. 2. Cholecystectomy. 3. Hepatic steatosis. 4. No bowel wall thickening or obstruction. 5. Mildly enlarged periportal lymph nodes. There are also partially imaged mildly enlarged subcarinal lymph nodes. This could represent a lymphoproliferative disorder. Electronically signed by: Dennis Guevara M.D. 08/23/2016 4:33 PM Dictated Date/Time: 08/23/2016 4:24 PM
[2016-08-23] MEDS: DILTIAZEM HCL 60 MG TAB PO SCH ×3 (16:46→23:19)
--- NOTE | 2016-08-23 16:54 | DIAGNOSTIC IMAGING REPORT ---
CT OF THE CHEST WITHOUT IV CONTRAST CLINICAL HISTORY: Dyspnea on exertion. Evaluate for pneumonia. Atrial fibrillation. COMPARISON STUDY: Chest radiograph August 22, 2016. TECHNIQUE: Axial images of the chest were obtained without IV contrast. Images were reviewed in the axial, sagittal, and coronal planes. IV contrast was not administered for this examination. FINDINGS: There are multiple mildly enlarged mediastinal and bilateral hilar lymph nodes. An index right paratracheal node measures 2.3 x 1.5 cm. An index subcarinal node measures 1.5 cm. Hilar nodes are suboptimally assessed on this unenhanced exam but a left hilar node measures approximately 1.4 cm in short axis diameter. The size of the heart is normal. There is no pericardial effusion. Central airways are patent. No consolidation to suggest pneumonia is present. Linear and groundglass subpleural opacity suggests atelectasis. There is no pneumothorax or pleural effusion. There is mild subpleural reticulation with honeycombing. No suspicious osseous lesions are present. There is fatty infiltration of the liver. The gallbladder is surgically absent. Mildly enlarged portacaval lymph nodes are noted. IMPRESSION: 1. No consolidation to suggest pneumonia. 2. Mild mediastinal and bilateral hilar lymphadenopathy. This is nonspecific and differential considerations include a lymphoproliferative process such as lymphoma as well as granulomatous processes. 3. Fatty liver. Electronically signed by: Ruben Andre M.D. 08/23/2016 4:52 PM Dictated Date/Time: 08/23/2016 4:46 PM
[2016-08-23 17:16] LABS: URINE APPEARANCE CLEAR (CLEAR); URINE BILIRUBIN NEG (NEG); URINE COLOR DK YELLOW; URINE NITRITE NEG (NEG); URINE PH 5.5 (4.5-7.5); URINE SPECIFIC GRAVITY 1.022 (1.000-1.030); UROBILINOGEN NEG (NEG); ZZUR CULT IF INDIC CLEAN CATCH NO
[2016-08-23 17:38] LABS: MANUAL MICROSCOPIC REQUIRED? NO; REVIEW REQ? NO
--- NOTE | 2016-08-23 18:20 | ECHOCARDIOGRAM REPORT ---
*NOTICE TO RECEIVING LIBERTARIAN AGENCY This information is strictly Confidential and protected under [place] law. [place] law prohibits you from making any further disclosure of this information unless further disclosure is expressly permitted by the written consent of the person to whom it pertains or is authorized by law. A general authorization for the release of medical or other information is not sufficient for this purpose. Hospital accepts no responsibility if the information is made available to any other person, INCLUDING THE PATIENT. Interpretation Summary * Name: RIP OSHEA Study Date: 08/23/2016 08:15 AM BP: 107/67 mmHg * Patient Location: [facility] HR: 76 * : 1955 (M/d/yyyy) Gender: Male Height: 64 in * Age: 60 yrs Ethnicity: [place] Weight: 256 lb * Ordering Physician: Amari Cruz * Referring Physician: Self, Referred * Performed By: Thania Mendes RDCS * * Reason For Study: AFLUTTER * BSA: 2.2 m2 * History: AFLUTTER * -- Conclusions -- * 1. Normal LV size. Borderline concentric LVH. * 2. Normal LV function. LVEF 55-60%. Abnormal septal motion consistent with conduction abnormality. * 3. Normal RV size and function. * 4. No significant valvular pathology. * 5. No prior studies for comparison. Procedure Details * A contrast injection of Definity was performed to improve assessment of LV function. * Contrast was injected into an intravenous site in the right arm. * One vial of Definity ultrasound contrast was diluted in normal saline to a total volume of 10 ml. A total of '2' ml of solution was administered during imaging. * Lot # [id number] of Definity utilized for procedure. * Expiration date 1 JUL 31. * The attending nurse who injected the contrast agent was RUPAL HAND RN. Left Ventricle * The left ventricle is grossly normal size. * There is borderline concentric left ventricular hypertrophy. * Focal thickening of the basal septum with no evidence of left ventricular outflow obstruction. * Ejection Fraction = 55-60%. * Septal motion is consistent with conduction abnormality. Right Ventricle * The right ventricle is grossly normal size. * The right ventricular systolic function is normal as assessed by tricuspid annular plane systolic excursion (TAPSE) (normal >1.5 cm). Atria * The left atrial size is normal. * Right atrial size is normal. * No ASD detected; PFO is not assessed. Mitral Valve * The mitral valve is grossly normal. * There is no mitral valve stenosis. * There is trace mitral regurgitation. Tricuspid Valve * The tricuspid valve is not well visualized, but is grossly normal. * There is no tricuspid stenosis. * Significant tricuspid regurgitation is absent. Aortic Valve * The aortic valve is not well visualized. * No hemodynamically significant valvular aortic stenosis. * There is no significant aortic regurgitation. Pulmonic Valve * The pulmonary valve is not well seen, but the Doppler examination is normal without significant regurgitation or stenosis. Great Vessels * The aortic root and proximal ascending aorta are normal sized. * No Doppler or imaging evidence of an aortic coarctation. Pericardium/Pleural * There is no pericardial effusion. Left Ventricular Diastolic Function * Diastolic dysfunction. MMode 2D Measurements and Calculations IVSd 1.3 cm IVSs 1.6 cm LVIDd 5.3 cm LVIDs 3.6 cm LVPWd 0.99 cm LVPWs 1.7 cm IVS/LVPW 1.3 FS 31.9 % EDV(Teich) 136.8 ml ESV(Teich) 55.4 ml EF(Teich) 59.5 % EDV(cubed) 151.0 ml ESV(cubed) 47.7 ml EF(cubed) 68.4 % % IVS thick 24.8 % % LVPW thick 68.6 % LV mass(C)d 237.6 grams LV mass(C)dI 109.4 grams/m\S\2 LV mass(C)s 231.3 grams LV mass(C)sI 106.5 grams/m\S\2 SV(Teich) 81.4 ml SI(Teich) 37.5 ml/m\S\2 SV(cubed) 103.3 ml SI(cubed) 47.6 ml/m\S\2 Ao root diam 3.0 cm Ao root area 6.9 cm\S\2 LA dimension 4.8 cm LA/Ao 1.6 LVAd ap4 46.3 cm\S\2 LVLd ap4 9.5 cm EDV(MOD-sp4) 177.5 ml EDV(sp4-el) 191.4 ml LVAs ap4 28.1 cm\S\2 LVLs ap4 8.1 cm ESV(MOD-sp4) 84.6 ml ESV(sp4-el) 83.0 ml EF(MOD-sp4) 52.3 % EF(sp4-el) 56.7 % LVAd ap2 30.5 cm\S\2 LVLd ap2 8.5 cm EDV(MOD-sp2) 89.5 ml EDV(sp2-el) 93.1 ml LVAs ap2 18.5 cm\S\2 LVLs ap2 8.0 cm ESV(MOD-sp2) 34.7 ml ESV(sp2-el) 36.2 ml EF(MOD-sp2) 61.3 % EF(sp2-el) 61.1 % LVLd %diff -11.76 % EDV(MOD-bp) 134.9 ml LVLs %diff -0.68 % ESV(MOD-bp) 53.6 ml EF(MOD-bp) 60.3 % SV(MOD-sp4) 92.9 ml SI(MOD-sp4) 42.8 ml/m\S\2 SV(MOD-sp2) 54.8 ml SI(MOD-sp2) 25.2 ml/m\S\2 SV(MOD-bp) 81.3 ml SI(MOD-bp) 37.4 ml/m\S\2 SV(sp4-el) 108.4 ml SI(sp4-el) 49.9 ml/m\S\2 SV(sp2-el) 56.8 ml SI(sp2-el) 26.2 ml/m\S\2 Doppler Measurements and Calculations Ao V2 max 132.9 cm/sec Ao max PG 7.1 mmHg Ao max PG (full) 1.9 mmHg LV V1 max PG 5.1 mmHg LV V1 max 113.3 cm/sec
--- NOTE | 2016-08-23 18:20 | Progress Note ---
Progress Note Date of Service Aug 23, 2016. Progress Note time: 1814 All test results were reviewed with the patient, his daughter, and his significant other. Reviewed CT results showing lymphadenopathy in the chest and abdomen. Renal stones are present but not moving, causing hydronephrosis, etc. Reviewed differential for this including acute infection (viral) vs noninfectious causes (inflammatory, malignancy). Will check HIV (verbal consent obtained), EBV, CMV, RPR, toxoplasmosis, parvovirus. Place on rocephin for sepsis coverage/[employer] coverage and plan for LP in AM to be complete. My suspicion, given the acuity of his illness, is that his constellation of signs/symptoms/labs/imaging is viral in nature but will need to r/o other entities. All questions answered. Gabe Ferro MD total time today about 50 minutes including reviewing data, 2 visits to see patient, ordering labs, talking with pt/family, etc
[2016-08-23] MEDS: SODIUM CHLORIDE 0.9% 1000ML 1,000 ML IV SCH (18:37)
[2016-08-23] MEDS: CEFTRIAXONE SOD INJ 2,000 MG in DEXTROSE 5% 50ML 50 ML IV SCH (18:37)
[2016-08-23] MEDS: ALLOPURINOL 100 MG TAB PO SCH (20:13)
[2016-08-23 23:25] LABS: RAPID PLASMA REAGIN NONREACTIVE (NONREACT)
[2016-08-24] VITALS (12 sets, daily range): BP systolic 104–134; BP diastolic 65–121; PULSE 50–111; TEMP 36.8–38.2; O2SAT 90–96
[2016-08-24] MEDS: SODIUM CHLORIDE 0.9% 1000ML 1,000 ML IV SCH ×3 (03:37→23:30)
[2016-08-24] MEDS: OXYCODONE HCL IR 5 MG TAB (IMMEDIATE RELEASE) PO PRN ×3 (03:38→19:52)
[2016-08-24] MEDS: DILTIAZEM HCL 60 MG TAB PO SCH ×4 (05:07→23:30)
[2016-08-24 05:41] LABS: HEMATOCRIT 41.5 % (42-52); MEAN CORPUSCULAR HEMOGLOBIN 31.9 pg (25-34); MEAN CORPUSCULAR HGB CONC 34.7 g/dl (32-36); MEAN PLATELET VOLUME 9.1 fL (7.4-10.4); PLATELET COUNT 166 K/uL (130-400); RED BLOOD COUNT 4.51 M/uL (4.7-6.1); WHITE BLOOD COUNT 11.15 K/uL (4.8-10.8)
[2016-08-24] MEDS: CEFTRIAXONE SOD INJ 2,000 MG in DEXTROSE 5% 50ML 50 ML IV SCH (06:01)
[2016-08-24] MEDS: METOPROLOL TARTRATE 50 MG TAB PO SCH ×3 (06:10→19:52)
[2016-08-24 06:13] LABS: BUN/CREATININE RATIO 14.4 (10-20); CREATININE 1.4 mg/dl (0.60-1.40); POTASSIUM 3.6 mmol/L (3.5-5.1)
[2016-08-24] MEDS: MoRPHine SULFATE 4 MG/ML 1 ML CARP\\VIAL IV PRN (07:24)
--- NOTE | 2016-08-24 08:34 | Cardiology Follow-Up ---
Subjective Date of Service: Aug 24, 2016. Pt evaluation today including: conversation w/ patient, physical exam, lab review, review of studies, review of inpatient medication list History of Present Illness This is a 60-year-old male with a history of hypertension, hyperlipidemia and obesity as well as a history of some type of tachycardia. He has had tachycardia for several years, it is paroxysmal and the mechanism is uncertain. I believe it has been presumed to be a paroxysmal supraventricular tachycardia of some type, however it was never documented until this admission. He was feeling poorly (unrelated to his heart rate) and presented to an urgent care center where he had an elevated heart rate. Electrical cart a gram demonstrated atrial flutter with 2-1 AV conduction and he was transferred to the emergency room. Initial treatment included metoprolol and IV diltiazem, left ventricular function was good and he also has a relatively recently identified left bundle branch block (with a negative Lyme screen). He converted quickly back to sinus rhythm. He is being evaluated for a fever, probably with a spinal tap later today. As far as his chronic status he has felt well since his initial presentation with atrial flutter and has had no recurrence of his palpitations. Social History Smoking Status: Former Smoker History of Alcohol Use: Yes (OCC BEER) Review of Systems Respiratory: + dyspnea on exertion, No cough, No dyspnea at rest Cardiac: No chest pain Medications Cardiovascular: Item Value Date Time Diltiazem HCl 60 mg 08/23/16 1600 (Cardizem Tab) Q6/PO 08/24/16 0507 Aspirin 81 mg 08/23/16 0900 (Ecotrin Tab) QAM/PO 08/23/16 0805 Metoprolol 50 mg 08/22/16 2200 Tartrate Q8/PO 08/24/16 0610 (Lopressor Tab) Metoprolol 5 mg 08/22/16 1700 Tartrate Q4H PRN/IV 08/23/16 0219 (Lopressor Iv) Objective Vital Signs Past 12 Hours Date Time Temp Pulse Resp B/P Pulse Ox O2 Delivery O2 Flow Rate FiO2 08/24/16 08:07 37.4 50 18 118/66 93 2.0 08/24/16 07:30 Room Air 08/24/16 06:15 37.4 08/24/16 05:15 38.0 08/24/16 04:00 Room Air 08/24/16 03:45 37.4 85 20 121/74 92 Room Air 08/23/16 23:59 Room Air 08/23/16 23:40 36.6 83 20 118/71 93 Room Air 08/23/16 21:36 74 109/73 Last Recorded Weight-Kilograms: 113.700 Intake & Output 8-Hour Column 08/23/16 08/23/16 08/24/16 15:59 23:59 07:59 Intake Total 406 ml 406 ml 1203 ml Output Total 700 ml 300 ml 850 ml Balance -294 ml 106 ml 353 ml 24-Hour Column 08/24/16 07:59 Intake Total 2015 ml Output Total 1850 ml Balance 165 ml Physical Exam Constitutional: Level of Distress: NAD Lungs: Auscultation: breath sounds normal Cardiovascular: Heart Auscultation: RRR Extremities: no edema Data Laboratory Results: Last 24 Hours Test 08/23/16 13:05 08/23/16 16:05 08/23/16 18:41 08/24/16 04:44 Procalcitonin 0.71 ng/mL Urine Color DK YELLOW Urine Appearance CLEAR Urine pH 5.5 Urine Specific [place] 1.022 Urine Protein 1+ Urine Glucose (UA) NEG Urine Ketones NEG Urine Occult Blood TRACE Urine Nitrite NEG Urine Bilirubin NEG Urine Urobilinogen NEG Urine Leukocyte Esterase TRACE Urine WBC (Auto) 1-5 /hpf Urine RBC (Auto) 0-4 /hpf Urine Hyaline Casts (Auto) 1-5 /lpf Urine Epithelial Cells (Auto) 5-10 /lpf Urine Bacteria (Auto) NEG Total Bilirubin 1.0 mg/dl Direct Bilirubin 0.5 mg/dl Aspartate Amino Transf (AST/SGOT) 287 U/L Alanine Aminotransferase (ALT/SGPT) 429 U/L Alkaline Phosphatase 137 U/L Total Protein 7.5 gm/dl Albumin 3.2 gm/dl Rapid Plasma Reagin NONREACTIVE Monoscreen NEG HIV (1&2) Ab and P24 Ag, 4th Gener NEG Test 08/24/16 05:07 08/24/16 08:06 White Blood Count 11.15 K/uL Red Blood Count 4.51 M/uL Hemoglobin 14.4 g/dL Hematocrit 41.5 % Mean Corpuscular Volume 92.0 fL Mean Corpuscular Hemoglobin 31.9 pg Mean Corpuscular Hemoglobin Concent 34.7 g/dl RDW Standard Deviation 44.9 fL RDW Coefficient of Variation 13.5 % Platelet Count 166 K/uL Mean Platelet Volume 9.1 fL Sodium Level 134 mmol/L Potassium Level 3.6 mmol/L Chloride Level 99 mmol/L Carbon Dioxide Level 27 mmol/L Anion Gap 8.0 mmol/L Blood Urea Nitrogen 20 mg/dl Creatinine 1.40 mg/dl Est Creatinine Clear Calc Drug Dose 65.1 ml/min Estimated GFR () 63.3 Estimated GFR (Non- 54.6 BUN/Creatinine Ratio 14.4 Random Glucose 100 mg/dl Calcium Level 8.0 mg/dl Imaging: An echocardiogram done 08/23/2016 shows normal left ventricular size with borderline LVH, normal systolic function with ejection fraction 55-60%. There is septal motion abnormalities consistent with his left bundle branch block. No valvular abnormalities. Telemetry reviewed: He has had no further atrial flutter since the night of 05/2017. Assessment and Plan #1. Atrial flutter: He has a history of very infrequent relatively brief episodes of palpitations consistent with paroxysmal atrial flutter. Historically the episodes sound brief enough and infrequent enough and his chads score is very low therefore I don't know that he should be on long-term anticoagulation. I would not use aspirin. Certainly I would not use anticoagulation now, and we can readdress this in the future if needed. I am going to switch his short acting beta javi and calcium javi to long- acting. Since he is undergoing procedures, I will wait and do that tomorrow. Thank you for allowing me to participate in his care.
[2016-08-24] MEDS: ASPIRIN 81 MG ECTAB PO SCH (09:00)
[2016-08-24] MEDS ORDERED: ACETAMINOPHEN 500 MG TAB PO PRN (10:15)
--- NOTE | 2016-08-24 10:18 | DIAGNOSTIC IMAGING REPORT ---
FLUOROSCOPICALLY GUIDED LUMBAR PUNCTURE CLINICAL HISTORY: fever, headache pain FLUOROSCOPY TIME: 0.3 minutes PROCEDURE: The procedure, risks and benefits were discussed with the patient including the risk of spinal headache, bleeding and infection. The patient agreed to the procedure and informed written consent was obtained. The procedure was performed by Dr. Garcia following a timeout. The left L4-L5 interlaminar space was targeted. Skin overlying the space was prepped and draped in the usual sterile fashion and local anesthesia was achieved with 1% lidocaine. Under intermittent fluoroscopic guidance, a 20-gauge x 3 1/2 in. Sprotte needle was inserted into the thecal sac. A total of 8cc of clear, colorless cerebral spinal fluid was obtained and spread amongst 4 vials. The patient tolerated the procedure well. There were no immediate complications. The specimens were sent to the laboratory at the request of the referring physician. IMPRESSION: Successful fluoroscopic guided lumbar puncture with removal of 8 cc of clear, colorless cerebral spinal fluid. No immediate complications. Electronically signed by: Kurt Garcia M.D. 08/24/2016 10:17 AM Dictated Date/Time: 08/24/2016 10:12 AM
[2016-08-24 10:24] LABS: CSF CHEMISTRY TUBE # 1
[2016-08-24 10:42] LABS: CSF TOTAL PROTEIN 44.3 mg/dl (15.0-45.0)
[2016-08-24 10:49] LABS: CSF APPEARANCE CLEAR; CSF COLOR COLORLESS; CSF XANTHOCHROMIC NO XANTHOCHROMIA
[2016-08-24] MEDS: METOPROLOL TARTRATE 1 MG/ML VIAL IV PRN (13:38)
--- NOTE | 2016-08-24 14:42 | Progress Note ---
Subjective Date of Service: Aug 24, 2016. (María Vaz PA-C) Subjective Pt evaluation today including: conversation w/ patient, physical exam, chart review, lab review, review of studies, review of inpatient medication list Patient seen and evaluated. Continues to have fevers overnight. Reports he was beginning to feel better yesterday evening however seem to worsen overnight. CT of the chest and abdomen yesterday revealing abdominal lymphadenopathy - question of viral etiology Patient evaluated prior to lumbar puncture. Continues to experience generalized body aches and a headache. No new acute complaints (María Vaz PA-C) Problem List Medical Problems: (1) Atrial fibrillation with rapid ventricular response Status: Acute (2) Exertional chest pain Status: Acute (3) Fever Status: Acute (4) Headache Status: Acute (5) Hypertension Status: Chronic Surgical Problems: (1) History of cholecystectomy Status: Chronic (María Vaz PA-C) Review of Systems Constitutional: + fever, + problem reported (frontal headache), + sweats ENT: No nasal symptoms Respiratory: No shortness of breath Cardiac: No chest pain Abdomen: + constipation, No diarrhea, No nausea, No pain, No vomiting Musculoskeletal: + joint pain, + muscle pain, No calf pain, No swelling Male : No dysuria Skin: No rash (María Vaz PA-C) Medications Current Inpatient Medications Medications (Trade) Dose Ordered Sig/Bernie Route Start Time Stop Time Status Last Admin Dose Admin Enoxaparin Sodium (Lovenox Inj) 40 mg Q24H SC 08/22/16 21:00 09/21/16 20:59 Future Hold 08/22/16 20:37 40 MG Al Hydrox/Mg Hydrox/Simethicone (Maalox Max Susp) 15 ml Q4H PRN PO 08/22/16 16:30 09/21/16 16:29 Magnesium Hydroxide (Milk Of Magnesia Susp) 30 ml Q12H PRN PO 08/22/16 16:30 09/21/16 16:29 Ondansetron HCl (Zofran Inj) 4 mg Q6H PRN IV 08/22/16 16:30 09/21/16 16:29 Nitroglycerin (Nitrostat Tab) 0.4 mg UD PRN SL 08/22/16 16:30 09/21/16 16:29 Aspirin (Ecotrin Tab) 81 mg QAM PO 08/23/16 09:00 09/22/16 08:59 08/23/16 08:05 81 MG Metoprolol Tartrate (Lopressor Tab) 50 mg Q8 PO 08/22/16 22:00 09/21/16 21:59 08/24/16 11:32 50 MG Metoprolol Tartrate (Lopressor Iv) 5 mg Q4H PRN IV 08/22/16 17:00 09/21/16 16:59 08/24/16 13:38 5 MG Hydralazine HCl (HydrALAZINE INJ) 10 mg Q4H PRN IV 08/22/16 17:00 09/21/16 16:59 Morphine Sulfate (MoRPHine SULFATE INJ) 4 mg Q4H PRN IV 08/22/16 18:45 09/05/16 18:44 08/24/16 07:24 4 MG Morphine Sulfate (MoRPHine SULFATE INJ) 2 mg Q4H PRN IV 08/22/16 18:45 09/05/16 18:44 08/23/16 04:31 2 MG Oxycodone HCl (Roxicodone Immediate Rel Tab) 10 mg Q6 PRN PO 08/22/16 18:45 09/05/16 18:44 08/24/16 13:39 10 MG Allopurinol (Zyloprim Tab) 200 mg HS PO 08/23/16 21:00 09/22/16 20:59 08/23/16 20:13 200 MG Diltiazem HCl 60 mg 60 mg Q6 PO 08/23/16 16:00 09/22/16 15:59 08/24/16 11:32 60 MG Sodium Chloride 1,000 ml @ 100 mls/hr Q10H IV 08/23/16 17:00 09/22/16 16:59 08/24/16 11:33 100 MLS/HR Ceftriaxone Sodium/Dextrose (Rocephin Inj/D5 50ml) 70 ml @ 100 mls/hr Q12H IV 08/23/16 18:00 08/25/16 17:14 08/24/16 06:01 100 MLS/HR Acetaminophen (Tylenol Tab) 1,000 mg Q4H PRN PO 08/24/16 10:15 08/26/16 10:14 (María Vaz PA-C) Objective Vital Signs Date Time Temp Pulse Resp B/P Pulse Ox O2 Delivery O2 Flow Rate FiO2 08/24/16 13:38 130 122/72 08/24/16 11:47 37.4 109 18 104/65 91 2.0 08/24/16 11:15 37.9 101 18 114/70 93 2.0 08/24/16 11:11 37.9 97 18 112/72 92 2.0 08/24/16 10:30 37.4 20 /121 94 08/24/16 10:28 37.4 108 18 125/70 93 Nasal Cannula 2.0 08/24/16 08:07 37.4 50 18 118/66 93 2.0 08/24/16 07:30 Room Air 08/24/16 06:15 37.4 08/24/16 05:15 38.0 08/24/16 04:00 Room Air 08/24/16 03:45 37.4 85 20 121/74 92 Room Air 08/23/16 23:59 Room Air 08/23/16 23:40 36.6 83 20 118/71 93 Room Air 08/23/16 21:36 74 109/73 08/23/16 20:00 Room Air 08/23/16 19:13 36.6 74 18 109/68 93 Room Air 08/23/16 16:46 65 108/64 08/23/16 16:41 37.3 08/23/16 16:00 Room Air 08/23/16 15:21 39.1 89 16 119/72 90 Room Air (María Vaz PA-C) Physical Exam General Appearance: WD/WN, no apparent distress Eyes: sclerae normal ENT: hearing grossly normal Neck: supple, no JVD, trachea midline Respiratory/Chest: lungs clear, normal breath sounds, no respiratory distress, no accessory muscle use Cardiovascular: regular rate, rhythm, no gallop, no murmur Abdomen: normal bowel sounds, non tender, soft Extremities: no pedal edema, no calf tenderness, + pertinent finding (negative for erythematous joints) Neurologic/Psychiatric: alert, oriented x 3 Skin: normal color, warm/dry (María Vaz PA-C) Laboratory Results Last 24 Hours Test 08/23/16 16:05 08/23/16 18:41 08/24/16 05:07 08/24/16 10:00 Urine Color DK YELLOW Urine Appearance CLEAR Urine pH 5.5 Urine Specific [place] 1.022 Urine Protein 1+ Urine Glucose (UA) NEG Urine Ketones NEG Urine Occult Blood TRACE Urine Nitrite NEG Urine Bilirubin NEG Urine Urobilinogen NEG Urine Leukocyte Esterase TRACE Urine WBC (Auto) 1-5 /hpf Urine RBC (Auto) 0-4 /hpf Urine Hyaline Casts (Auto) 1-5 /lpf Urine Epithelial Cells (Auto) 5-10 /lpf Urine Bacteria (Auto) NEG Total Bilirubin 1.0 mg/dl 0.7 mg/dl Direct Bilirubin 0.5 mg/dl 0.3 mg/dl Aspartate Amino Transf (AST/SGOT) 287 U/L 259 U/L Alanine Aminotransferase (ALT/SGPT) 429 U/L 484 U/L Alkaline Phosphatase 137 U/L 150 U/L Total Protein 7.5 gm/dl 7.2 gm/dl Albumin 3.2 gm/dl 2.9 gm/dl Rapid Plasma Reagin NONREACTIVE Monoscreen NEG HIV (1&2) Ab and P24 Ag, 4th Gener NEG White Blood Count 11.15 K/uL Red Blood Count 4.51 M/uL Hemoglobin 14.4 g/dL Hematocrit 41.5 % Mean Corpuscular Volume 92.0 fL Mean Corpuscular Hemoglobin 31.9 pg Mean Corpuscular Hemoglobin Concent 34.7 g/dl RDW Standard Deviation 44.9 fL RDW Coefficient of Variation 13.5 % Platelet Count 166 K/uL Mean Platelet Volume 9.1 fL Sodium Level 134 mmol/L Potassium Level 3.6 mmol/L Chloride Level 99 mmol/L Carbon Dioxide Level 27 mmol/L Anion Gap 8.0 mmol/L Blood Urea Nitrogen 20 mg/dl Creatinine 1.40 mg/dl Est Creatinine Clear Calc Drug Dose 65.1 ml/min Estimated GFR () 63.3 Estimated GFR (Non- 54.6 BUN/Creatinine Ratio 14.4 Random Glucose 100 mg/dl Calcium Level 8.0 mg/dl CSF Color COLORLESS CSF Appearance CLEAR CSF WBC 3 /uL CSF RBC 0 /uL CSF Xanthrochromic NO XANTHOCHROMIA CSF Cell Count Tube # 3 CSF Chemistry Tube # 1 CSF Glucose 59 mg/dl CSF Total Protein 44.3 mg/dl Test 08/24/16 12:25 (María Vaz PA-C) Assessment and Plan Mr. Bonds is a 60 y/o male with HTN, Kidney Stones, Gout, SVT, and a Pilonidal Cyst who presents due to flu-like symptoms and tachycardia. He is noted to be febrile with A Flutter on monitor Fever of Unknown Etiology: Myalgias/Arthralgias/Tension RYAN - Viral Etiology - Sed rate elevated at 58, Lyme negative, influenza PCR negative - obtain Lyme IgM for complete rule out - BCx - NGTD and UCx - without growth - CT Chest and Abd/Pelvis - image and report reviewed - bilateral nephrolithiasis without obstruction; hepatic steatosis; enlarged periportal lymph nodes and subcarinal lymph nodes -- LFTs are noted to be elevated - Viral workup - HIV, EBV, CMV, RPR, toxoplasmosis, parvovirus - LP - CSF culture pending; CSF noted to be clear with normal levels of protein and glucose - Continue ceftriaxone 2 g daily - will discontinue pending results of repeat Lyme titers - Consult infectious disease - appreciate recommendations Atrial Flutter with RVR: Currently NSR - Echo -EF 55-60%; abnormal septal motion consistent with conduction abnormality - Diltiazem drip discontinued yesterday and is tolerating Cardizem 60 mg Q6H -- Continue to hold amlodipine 10 mg daily as this will be D/C'd as he will continue Cardizem - Metoprolol 50 mg Q6H with Metoprolol 5 mg IV PRN - Consult Cardiology - recommendations reviewed - plan to change short acting beta javi and calcium channel javi to long-acting tomorrow -- Will defer anticoagulation at this point Pilonidal Cyst: - Consideration as source of fever however site is pain free in no obvious signs of infection - May need possible surgical consultation? will defer at this time HTN: - Hold HCTZ 50 mg daily - Cover with hydralazine PRN Gout: No evidence of active gout or erythematous joints suggesting cause of fever - Allopurinol 200 mg daily DVT Prophylaxis: - Lovenox 40 mg SC daily Code Status: FULL RESUSCITATION Disposition: - Possible DC 1-2 days Continued [facility] stay due to: fever Discharge planning: home (María Vaz PA-C) Attending Attestation: Pt seen/examined, chart reviewed, care plan d/w ANA Vaz. I agree w/ the mackey components of her documentation. Patient states that last pm he "felt great" then had fever early this AM and returned to feeling poorly Headache is 5/10 -- improved from admission appetite slightly better no rash or other new complaints tele - no a. fib/flutter overnight but flipped to a. fib this afternoon following his VSS although HRs now >100 gen - nontoxic, a/o x 3 neck - lymphadenopathy b/l, each about 1.5cm in size - no change heart - tachy, irregular lungs - CTA b/l abd - soft, liver edge mildly palpable, no splenomegaly, obese ext - no edema skin - no rash labs - Cr 1.4 WBC 11,000 blood cx's neg to date urine cx neg CSF studies - WBCs < 5 HIV neg RPR neg Monospot neg A/P: 1. sepsis - source unclear, but suspect viral etiology all bacterial sources thus far ruled out - urine, CSF, blood, lungs, etc lyme's negative d/c rocephin (was being used for CSF coverage while awaiting LP) EBV, CMV, parvo pending toxoplasmosis pending lymphoma is on differential, but I believe the acute presentation of his illness is too fast for lymphoma/malignancy LFTs are elevated, but I believe that this is viral in etiology as well no signs of biliary sepsis would be reasonable to check Hep A, B, C studies but doubt this is acute hepatitis and A/B/C shouldn't cause lymphadenopathy spoke with ID who will formally consult 2. acute kidney injury - resolved 3. a. flutter/fib - appreciate cardiology consult & recs cont BB cont CCB titrate as necessary agree with NO anticoagulation 4. fever 2nd to #1 - hold tylenol due to abnormal LFTs; toradol prn 5. abnormal LFts - see above repeat AM continue IVF and supportive care Lesa FERRO MD (Gabe Ferro MD)
[2016-08-24] MEDS: KETOROLAC TROMETHAMINE 30 MG/ML VIAL IV PRN (16:28)
[2016-08-24] MEDS: ALLOPURINOL 100 MG TAB PO SCH (19:52)
[2016-08-25] VITALS (9 sets, daily range): BP systolic 106–138; BP diastolic 68–77; PULSE 75–89; TEMP 36.8–37.2; O2SAT 90–97
[2016-08-25] MEDS: KETOROLAC TROMETHAMINE 30 MG/ML VIAL IV PRN (00:48)
[2016-08-25] MEDS: METOPROLOL TARTRATE 50 MG TAB PO SCH ×4 (02:37→20:08)
[2016-08-25 05:42] LABS: HEMATOCRIT 42.2 % (42-52); MEAN CELL VOLUME 94.2 fL (80-100); MEAN CORPUSCULAR HEMOGLOBIN 33.3 pg (25-34); MEAN CORPUSCULAR HGB CONC 35.3 g/dl (32-36); MEAN PLATELET VOLUME 9.3 fL (7.4-10.4); PLATELET COUNT 171 K/uL (130-400); RED BLOOD COUNT 4.48 M/uL (4.7-6.1); WHITE BLOOD COUNT 9.47 K/uL (4.8-10.8)
[2016-08-25 06:07] LABS: BUN/CREATININE RATIO 16.1 (10-20); CREATININE 1.2 mg/dl (0.60-1.40); POTASSIUM 3.5 mmol/L (3.5-5.1)
[2016-08-25] MEDS: DILTIAZEM HCL 60 MG TAB PO SCH ×3 (06:43→16:51)
[2016-08-25 07:30] LABS: BASO % 0.4 %; BASO ABS # 0.04 K/uL (0-0.2); COMPLETE YES; EOS % 4.3 %; IG% 1.7 %; LYMPH ABS # 1.14 K/uL (1.2-3.4); MONO % 14.4 %; NEUT % 67.2 %
[2016-08-25] MEDS: OXYCODONE HCL IR 5 MG TAB (IMMEDIATE RELEASE) PO PRN ×2 (08:08→16:33)
[2016-08-25] MEDS: ASPIRIN 81 MG ECTAB PO SCH (08:08)
[2016-08-25] MEDS: SODIUM CHLORIDE 0.9% 1000ML 1,000 ML IV SCH (08:09)
--- NOTE | 2016-08-25 10:49 | Progress Note ---
Progress Note Date of Service Aug 25, 2016. Progress Note ID consult dictated # [id number] A/P: 1. Fever 2. Transaminitis 3. Lymphadenopathy -? Viral illness, infectious workup negative to date, all cultures negative, multiple serologies pending -If no improvement, suggest lymph node biopsy to r/o noninfectious causes, mainly lymphoma -Will need repeat ct in 4-6 to assess resolution of nodes -will add anaplasma screening -will follow, thank you
--- NOTE | 2016-08-25 11:09 | INFECT. DISEASE CONSULTATION ---
DATE OF CONSULTATION: 08/25/2016 DATE OF CONSULTATION: 08/25/2016. REQUESTING PHYSICIAN: Dr. Sloan. HISTORY OF PRESENT ILLNESS: This is a 60-year-old gentleman who was admitted with worsening of flu-like symptoms. He states that last Tuesday he began with a headache. This progressed throughout the weekend and he was having episodes of fevers and chills. He also admits to diffuse myalgias and arthralgias at that time. On Tuesday, he did follow with a urgent care center and he was told that he had cardiac issues. Per the H\T\P, he was found to be in aflutter with rapid ventricular response. For this reason, it was recommended that he come to the Emergency Room. He was given Cardizem in the Emergency Room. He was also complaining of subjective fevers and chills at home. He was subsequently admitted to the hospital and he has been in sinus rhythm. He has continued to have fevers throughout his hospital stay. On the his T-max was 39.2, last night it was 38.2. He initially was placed on doxycycline of concern for Lyme disease; however his Lyme titer has returned negative and he is currently on no antibiotics. A mono screen was negative. Flu swabs were negative. He did have a leukocytosis of 15.5 on admission, but this has improved to 9.4. He was also found to have elevated liver function studies. These were as high as AST of 287 on the and ALT was 429. They are improving. As part of his workup, he did undergo an LP, which showed only 3 WBCs. His glucose and protein were normal. His cultures have been negative. He did have an RPR which is nonreactive. His mono screen and HIV testing were also nonreactive. He did have a CAT scan of the chest and pelvis which did show multiple enlarged lymph nodes with the largest being in the pelvis measuring 4 x 1.6 cm. He has not had any lymph node biopsy. He is not complaining of any abdominal pain. A CMV toxicity and Bentley-Linn antibodies are pending. He denies any sick contacts. He lives alone. He does have 1 dog which is currently staying with his parents. He does have a girlfriend but she lives over an hour away. He denies any recent travel. Prior to Tuesday night he was in his normal state of health. He states overall he is feeling better. The myalgias and arthralgias have resolved. He did have one episode of shortness of breath at home prior to admission when ambulating up a flight of stairs and he has not any additional episodes since admission to the hospital. He denies any chest pain, cough, shortness of breath or wheezing. He is currently on room air and uncomfortable. He denies any nausea, vomiting, diarrhea or abdominal pain. His appetite is stable. He has no urinary symptoms. He denies any rashes of the skin. He denies any swollen joints. He continues to have episodes of fever and chills and he does attribute this to receiving medication. He currently states he would only like to receive pain medication and medication for his heart condition, otherwise he is not interested in additional medications as he feels this is attributing to his fevers and chills. All remaining review of systems are reviewed and are negative except or as noted above. PAST MEDICAL HISTORY: Significant for hypertension, high cholesterol, gout, GERD, history of kidney stones, history of SVT, pilonidal cyst. PAST SURGICAL HISTORY: He denies any surgical package. FAMILY HISTORY: Noncontributory. SOCIAL HISTORY: Significant for tobacco use. He quit in June. He does drink occasionally. He has no sick contacts or recent travel. ALLERGIES: He has no known drug allergies. CURRENT MEDICATIONS: Include Lopressor, Toradol, Tylenol, allopurinol, Cardizem, aspirin, morphine, oxycodone, hydralazine, Maalox, milk of magnesia, Zofran. PHYSICAL EXAMINATION: VITAL SIGNS: T-max in the last 24 hours is 38.2 at 3:30 in the afternoon. He does admit to having an episode of sweating at 1:00 a.m. His temperature at 11:30 was 37.1. His temperature at 4 a.m. was 36.8. His current temperature is 37, pulse is 89, respiratory rate 18, blood pressure 125/71, oxygen saturation is 96% on room air. GENERAL: He is awake, alert and oriented x3. He is in no acute distress. HEAD, EYES, EARS, NOSE, AND THROAT: Mucous membranes are moist. Extraocular muscles are intact. SKIN: Without rash. HEART: Regular. LUNGS: Clear bilaterally. ABDOMEN: Soft, nontender, nondistended. There is trace edema in his lower extremities bilaterally. LABORATORY STUDIES: CBC today reveals a white blood cell count of 9.4, hemoglobin 14.9, hematocrit 42.2, platelets are 171. Sed rate was 58 on the . Chemistry panel today reveals a sodium of 138, potassium 3.5, chloride 102, bicarb 26, BUN 19, creatinine 1.2, glucose is 80. LFTs today AST is 149, ALT is 3, total bilirubin is 0.8. Urinalysis had 1-5 WBCs and no bacteria. Again, the CSF panel on the was 3. WBCs normal glucose and protein. An RPR is nonreactive. Lyme disease antibody is negative. CMV, EBV, HSV are pending. Hepatitis C antibody is negative. Flu swab was negative. Parvovirus is pending. HIV screen is negative. [place] screen is negative. IMAGING: Is as previous. ASSESSMENT AND PLAN: Fever with transaminitis, no bacterial infections have been found. Multiple viral serologies are pending. Certainly if this is a viral illness it should improve. I will check additional serologies for Anaplasma although this is less likely as he does not have any history of tick bite. He is currently off of antibiotics. His lymphadenopathy certainly could be a reflection of viral illness; however I have suggested to the patient that he have repeat CAT scan done in the next 4-6 weeks to evaluate for improvement. If he remains with lymphadenopathy certainly an uninfectious cause for his symptoms such as underlying lymphoma should be entertained. If he does not have any improvement I would suggest biopsy. I will follow along with you. Thank you for this consultation. DERIK
[2016-08-25] MEDS ORDERED: BISACODYL 10 MG SUPP PR PRN (11:30)
[2016-08-25] MEDS ORDERED: SENNA 8.6 MG TAB PO PRN (11:30)
--- NOTE | 2016-08-25 12:11 | Cardiology Follow-Up ---
Subjective Date of Service: Aug 25, 2016. Pt evaluation today including: conversation w/ patient, physical exam, lab review, review of studies, review of inpatient medication list History of Present Illness This is a 60-year-old male with a history of hypertension, hyperlipidemia and obesity as well as a history of some type of tachycardia. He has had tachycardia for several years, it is paroxysmal and the mechanism is uncertain. I believe it has been presumed to be a paroxysmal supraventricular tachycardia of some type, however it was never documented until this admission. He was feeling poorly (unrelated to his heart rate) and presented to an urgent care center where he had an elevated heart rate. Electrical cart a gram demonstrated atrial flutter with 2-1 AV conduction and he was transferred to the emergency room. Initial treatment included metoprolol and IV diltiazem, left ventricular function was good and he also has a relatively recently identified left bundle branch block (with a negative Lyme screen). He converted quickly back to sinus rhythm. He is being evaluated for a fever. He had an LP done yesterday, during the procedure he converted into atrial fibrillation at a relatively controlled heart rate and this remained until about 1 AM this morning. He seems completely unaware of the arrhythmia and the rate was fairly well controlled with only slight heart rate elevation. Social History Smoking Status: Former Smoker History of Alcohol Use: Yes (OCC BEER) Review of Systems Respiratory: No shortness of breath Cardiac: No chest pain Medications Cardiovascular: Item Value Date Time Metoprolol 50 mg 08/24/16 2000 Tartrate Q6H/PO 08/25/16 0809 (Lopressor Tab) Diltiazem HCl 60 mg 08/23/16 1600 (Cardizem Tab) Q6/PO 08/25/16 0808 Aspirin 81 mg 08/23/16 0900 (Ecotrin Tab) QAM/PO 08/25/16 0808 Objective Vital Signs Past 12 Hours Date Time Temp Pulse Resp B/P Pulse Ox O2 Delivery O2 Flow Rate FiO2 08/25/16 10:59 37.1 75 18 116/77 90 08/25/16 07:45 96 Room Air 2.0 08/25/16 07:35 37.0 89 18 125/71 95 2.0 08/25/16 04:06 36.8 75 20 106/68 95 Room Air 08/25/16 04:00 95 Room Air 2.0 08/25/16 00:01 96 Room Air 2.0 Last Recorded Weight-Kilograms: 113.500 Intake & Output 8-Hour Column 08/24/16 08/25/16 08/25/16 16:00 00:00 08:00 Intake Total 480 ml 1883 ml 1264 ml Output Total 650 ml 1600 ml 1000 ml Balance -170 ml 283 ml 264 ml 24-Hour Column 08/25/16 08:00 Intake Total 3627 ml Output Total 3250 ml Balance 377 ml Physical Exam Constitutional: Level of Distress: NAD Lungs: Auscultation: breath sounds normal Cardiovascular: Heart Auscultation: RRR, no murmurs Extremities: no edema Data Laboratory Results: Last 24 Hours Test 08/24/16 12:25 08/25/16 05:03 08/25/16 10:49 Lyme Disease IgM Antibody NEG White Blood Count 9.47 K/uL Red Blood Count 4.48 M/uL Hemoglobin 14.9 g/dL Hematocrit 42.2 % Mean Corpuscular Volume 94.2 fL Mean Corpuscular Hemoglobin 33.3 pg Mean Corpuscular Hemoglobin Concent 35.3 g/dl Platelet Count 171 K/uL Mean Platelet Volume 9.3 fL Neutrophils (%) (Auto) 67.2 % Lymphocytes (%) (Auto) 12.0 % Monocytes (%) (Auto) 14.4 % Eosinophils (%) (Auto) 4.3 % Basophils (%) (Auto) 0.4 % Neutrophils # (Auto) 6.36 K/uL Lymphocytes # (Auto) 1.14 K/uL Monocytes # (Auto) 1.36 K/uL Eosinophils # (Auto) 0.41 K/uL Basophils # (Auto) 0.04 K/uL RDW Standard Deviation 46.7 fL RDW Coefficient of Variation 13.5 % Immature Granulocyte % (Auto) 1.7 % Immature Granulocyte # (Auto) 0.16 K/uL Sodium Level 138 mmol/L Potassium Level 3.5 mmol/L Chloride Level 102 mmol/L Carbon Dioxide Level 26 mmol/L Anion Gap 10.0 mmol/L Blood Urea Nitrogen 19 mg/dl Creatinine 1.20 mg/dl Est Creatinine Clear Calc Drug Dose 75.9 ml/min Estimated GFR () 76.3 Estimated GFR (Non- 65.8 BUN/Creatinine Ratio 16.1 Random Glucose 80 mg/dl Calcium Level 8.0 mg/dl Total Bilirubin 0.8 mg/dl Direct Bilirubin 0.3 mg/dl Aspartate Amino Transf (AST/SGOT) 149 U/L Alanine Aminotransferase (ALT/SGPT) 380 U/L Alkaline Phosphatase 153 U/L Total Protein 7.0 gm/dl Albumin 2.6 gm/dl Telemetry reviewed: Atrial fibrillation from when he returned from his lumbar puncture until about 1 AM this morning with a moderately rapid heart rate (low 100s). Converted to sinus rhythm this morning. Assessment and Plan #1. Atrial flutter: He has a history of very infrequent relatively brief episodes of palpitations that he is aware of consistent with paroxysmal atrial flutter or fibrillation. Historically the episodes sound brief enough and infrequent enough and his chads score is very low therefore he has not been anticoagulated, however he has been relatively asymptomatic during atrial fibrillation here in the hospital and he may have more of it than he realizes. I am going to switch his short acting beta javi and calcium javi to long- acting. Here he is on 50 mg every 6 hours of metoprolol tartrate and 60 mg every 6 hours of diltiazem. At home he was on metoprolol tartrate 50 mg twice a day and Norvasc. I'm going to switch him to 200 mg daily of metoprolol succinate and 240 mg of Cardizem CD. #2. Anticoagulation status: His Oj-vasc score is one (only hypertension I believe) therefore his stroke risk is about 1.3% per year. With one we can consider anticoagulation although it is not essential. His bleeding risk is low. I will discuss that with him, I would not use warfarin but if we can use one of the newer agents it may be reasonable. Thank you for allowing me to participate in his care.
--- NOTE | 2016-08-25 12:19 | Progress Note ---
Subjective Date of Service: Aug 25, 2016. (María Vaz PA-C) Subjective Pt evaluation today including: conversation w/ patient, physical exam, chart review, lab review, review of studies, review of inpatient medication list Patient seen and evaluated. No acute events overnight. Patient reports that symptoms are improving. Headache is still present however pain is improving. Reports night sweats at approximately 1 AM which is approximately the time he converted out of atrial fibrillation to normal sinus rhythm Report some frustration as no specific diagnosis has been obtained. Reassured him that likely illness is secondary to viral cause. Updated him on results of some of the tests that have been resulted. Does not report any new symptoms. (María Vaz PA-C) Problem List Medical Problems: (1) Atrial fibrillation with rapid ventricular response Status: Acute (2) Exertional chest pain Status: Acute (3) Fever Status: Acute (4) Headache Status: Acute (5) Hypertension Status: Chronic Surgical Problems: (1) History of cholecystectomy Status: Chronic (María Vaz PA-C) Review of Systems Constitutional: + problem reported (heachache (improving); appetite improving) , + sweats, No chills, No fever Eyes: No worsening of vision ENT: No nasal symptoms, No sore throat, No unusual epistaxis Respiratory: No cough, No dyspnea at rest, No dyspnea on exertion Cardiac: No chest pain Abdomen: + constipation, No diarrhea, No nausea, No pain, No vomiting Musculoskeletal: + problem reported (denies back pain at site of LP), No muscle pain, No swelling Male : No dysuria Heme: No abnormal bleeding/bruising Skin: No new/changing skin lesions, No rash (María Vaz, GABE) Medications Current Inpatient Medications Medications (Trade) Dose Ordered Sig/Bernie Route Start Time Stop Time Status Last Admin Dose Admin Enoxaparin Sodium (Lovenox Inj) 40 mg Q24H SC 08/22/16 21:00 09/21/16 20:59 Future Hold 08/22/16 20:37 40 MG Al Hydrox/Mg Hydrox/Simethicone (Maalox Max Susp) 15 ml Q4H PRN PO 08/22/16 16:30 09/21/16 16:29 Magnesium Hydroxide (Milk Of Magnesia Susp) 30 ml Q12H PRN PO 08/22/16 16:30 09/21/16 16:29 08/25/16 08:07 30 ML Ondansetron HCl (Zofran Inj) 4 mg Q6H PRN IV 08/22/16 16:30 09/21/16 16:29 Nitroglycerin (Nitrostat Tab) 0.4 mg UD PRN SL 08/22/16 16:30 09/21/16 16:29 Aspirin (Ecotrin Tab) 81 mg QAM PO 08/23/16 09:00 09/22/16 08:59 08/25/16 08:08 81 MG Metoprolol Tartrate (Lopressor Iv) 5 mg Q4H PRN IV 08/22/16 17:00 09/21/16 16:59 08/24/16 13:38 5 MG Hydralazine HCl (HydrALAZINE INJ) 10 mg Q4H PRN IV 08/22/16 17:00 09/21/16 16:59 Morphine Sulfate (MoRPHine SULFATE INJ) 4 mg Q4H PRN IV 08/22/16 18:45 09/05/16 18:44 08/24/16 07:24 4 MG Morphine Sulfate (MoRPHine SULFATE INJ) 2 mg Q4H PRN IV 08/22/16 18:45 09/05/16 18:44 08/23/16 04:31 2 MG Oxycodone HCl (Roxicodone Immediate Rel Tab) 10 mg Q6 PRN PO 08/22/16 18:45 09/05/16 18:44 08/25/16 08:08 10 MG Allopurinol (Zyloprim Tab) 200 mg HS PO 08/23/16 21:00 09/22/16 20:59 08/24/16 19:52 200 MG Diltiazem HCl (Cardizem Tab) 60 mg Q6 PO 08/23/16 16:00 09/22/16 15:59 08/25/16 08:08 60 MG Acetaminophen (Tylenol Tab) 1,000 mg Q4H PRN PO 08/24/16 10:15 08/26/16 10:14 Metoprolol Tartrate (Lopressor Tab) 50 mg Q6H PO 08/24/16 20:00 09/23/16 19:59 08/25/16 08:09 50 MG Ketorolac Tromethamine (Toradol Inj) 30 mg Q6H PRN IV 08/24/16 16:15 08/29/16 16:14 08/25/16 00:48 30 MG Senna (Senokot Tab) 17.2 mg QAM PRN PO 08/25/16 11:30 09/24/16 11:29 Bisacodyl (Dulcolax Supp) 10 mg Q12H PRN TN 08/25/16 11:30 09/24/16 11:29 (María Vaz, ANA-C) Objective Vital Signs Date Time Temp Pulse Resp B/P Pulse Ox O2 Delivery O2 Flow Rate FiO2 08/25/16 10:59 37.1 75 18 116/77 90 08/25/16 07:45 96 Room Air 2.0 08/25/16 07:35 37.0 89 18 125/71 95 2.0 08/25/16 04:06 36.8 75 20 106/68 95 Room Air 08/25/16 04:00 95 Room Air 2.0 08/25/16 00:01 96 Room Air 2.0 08/24/16 23:27 37.1 96 18 116/65 96 Room Air 08/24/16 20:00 Nasal Cannula 2.0 08/24/16 18:51 36.8 90 19 134/78 91 Nasal Cannula 2.0 08/24/16 16:00 Nasal Cannula 2.0 08/24/16 15:27 38.2 111 18 128/66 92 Nasal Cannula 2.0 08/24/16 13:38 130 122/72 (María Vaz, ANA-C) Physical Exam General Appearance: WD/WN, no apparent distress Eyes: sclerae normal ENT: hearing grossly normal Neck: supple, no JVD, trachea midline Respiratory/Chest: lungs clear, normal breath sounds, no respiratory distress, no accessory muscle use Cardiovascular: regular rate, rhythm, no gallop, no murmur Abdomen: normal bowel sounds, non tender, soft Extremities: no pedal edema, no calf tenderness Neurologic/Psychiatric: alert, oriented x 3 Skin: normal color, warm/dry, + pertinent finding (are of LP without erythema, edema, or purulent discharge) (María Vaz, PA-C) Laboratory Results Last 24 Hours Test 08/24/16 12:25 08/25/16 05:03 08/25/16 10:49 Lyme Disease IgM Antibody NEG White Blood Count 9.47 K/uL Red Blood Count 4.48 M/uL Hemoglobin 14.9 g/dL Hematocrit 42.2 % Mean Corpuscular Volume 94.2 fL Mean Corpuscular Hemoglobin 33.3 pg Mean Corpuscular Hemoglobin Concent 35.3 g/dl Platelet Count 171 K/uL Mean Platelet Volume 9.3 fL Neutrophils (%) (Auto) 67.2 % Lymphocytes (%) (Auto) 12.0 % Monocytes (%) (Auto) 14.4 % Eosinophils (%) (Auto) 4.3 % Basophils (%) (Auto) 0.4 % Neutrophils # (Auto) 6.36 K/uL Lymphocytes # (Auto) 1.14 K/uL Monocytes # (Auto) 1.36 K/uL Eosinophils # (Auto) 0.41 K/uL Basophils # (Auto) 0.04 K/uL RDW Standard Deviation 46.7 fL RDW Coefficient of Variation 13.5 % Immature Granulocyte % (Auto) 1.7 % Immature Granulocyte # (Auto) 0.16 K/uL Sodium Level 138 mmol/L Potassium Level 3.5 mmol/L Chloride Level 102 mmol/L Carbon Dioxide Level 26 mmol/L Anion Gap 10.0 mmol/L Blood Urea Nitrogen 19 mg/dl Creatinine 1.20 mg/dl Est Creatinine Clear Calc Drug Dose 75.9 ml/min Estimated GFR () 76.3 Estimated GFR (Non- 65.8 BUN/Creatinine Ratio 16.1 Random Glucose 80 mg/dl Calcium Level 8.0 mg/dl Total Bilirubin 0.8 mg/dl Direct Bilirubin 0.3 mg/dl Aspartate Amino Transf (AST/SGOT) 149 U/L Alanine Aminotransferase (ALT/SGPT) 380 U/L Alkaline Phosphatase 153 U/L Total Protein 7.0 gm/dl Albumin 2.6 gm/dl (María Vaz, DUGLASC) Assessment and Plan Mr. Bonds is a 60 y/o male with HTN, Kidney Stones, Gout, SVT, and a Pilonidal Cyst who presents due to flu-like symptoms and tachycardia. He is noted to be febrile with A Flutter on monitor Fever of Unknown Etiology: Myalgias/Arthralgias/Tension RYAN - Viral Etiology - IMPROVING - Infectious sources have been ruled out - multiple viral serology pending - LFTs are trending down - BCx - NGTD and UCx - without growth - CT Chest and Abd/Pelvis - image and report reviewed - bilateral nephrolithiasis without obstruction; hepatic steatosis; enlarged periportal lymph nodes and subcarinal lymph nodes - LP - CSF culture NGTD; CSF noted to be clear with normal levels of protein and glucose - All antibiotics have been discontinued at this time - Consult infectious disease - reviewed recommendations - probable viral etiology -- Follow-up CT in 4-6 weeks to assess lymph nodes with possible need for biopsy to rule out lymphoma Atrial Flutter with RVR: - Echo - EF 55-60%; abnormal septal motion consistent with conduction abnormality - Diltiazem drip discontinued and tolerating oral conversion - Metoprolol succinate 200 mg daily and diltiazem CD 240 mg daily - Consult Cardiology - recommendations reviewed - plan to change short acting beta javi and calcium channel javi to long-acting tomorrow -- Will defer anticoagulation at this point Pilonidal Cyst: Source of Fever Unlikely - Stable HTN: - Hold HCTZ 50 mg daily - Cover with hydralazine PRN Gout: No evidence of active gout or erythematous joints suggesting cause of fever - Allopurinol 200 mg daily DVT Prophylaxis: - Lovenox 40 mg SC daily Code Status: FULL RESUSCITATION Disposition: - Probable D/C tomorrow Continued [facility] stay due to: fever Discharge planning: home (María Vaz, PAConchisC) Attending Attestation: pt seen/examined, chart reviewed, and care plan d/w ANA Vaz. I agree with the mackey components of her documentation. Pt's appetite is much improved. H/a is better. No fever in nearly 24 hours. had sweats in middle of night; now resolved. denies any new symptoms; denies sod/cerda/orthopnea. tele with NSR (converted from a. fib at ~0100) VSS, afebrile o2 sats low 90s gen - nad, obese neck - no JVD heart - RRR, s1, s2 lungs - cta b/l with slight crackle right base abd - soft, NT, ND, no HSM, BS+ ext - no edema skin - no rash CSF HSV NEGATIVE awaiting EBV, CMV, parvovirus, toxo titers cbc with normal wbc count today A/P: Sepsis, 2nd to viral etiology? All symptoms/signs improving nicely. Appears to be in resolution phase. LFTs also improved today. Appreciate ID consult & agree w/ their recs. Appreciate cardiology consult & agree w/ their recs. Repeat cxr today to ensure no new process causing mild O2 requirement. hopefully home tomorrow. agree w/ lymph node bx in 4-6 weeks if symptoms/signs continue although viral process most likely in light of extensive, negative w/u. Lesa FERRO MD (Gabe Ferro MD)
--- NOTE | 2016-08-25 13:47 | DIAGNOSTIC IMAGING REPORT ---
TWO VIEW CHEST CLINICAL HISTORY: Dyspnea. FINDINGS: PA and lateral chest radiographs are compared to chest x-ray and chest CT dated 08/23/2016. The examination is degraded by large body habitus. The heart is top normal in size. There is atherosclerotic calcification of the thoracic aorta. Chronic interstitial thickening is unchanged. There is bibasilar atelectasis. No pleural effusion is identified. There is no pneumothorax. The skeletal structures appear osteopenic. Degenerative change is seen in the thoracic spine. Cholecystectomy clips are noted. IMPRESSION: Bibasilar atelectasis with no active disease in the chest. Electronically signed by: Dimitris Collins M.D. 08/25/2016 1:46 PM Dictated Date/Time: 08/25/2016 1:44 PM
[2016-08-25 15:30] LABS: HSV TYPE 1 DNA Not Detected (Not Detected); HSV TYPE 1&2 DNA SOURCE CSF; HSV TYPE 2 DNA Not Detected (Not Detected)
[2016-08-25] MEDS: ALLOPURINOL 100 MG TAB PO SCH (20:07)
[2016-08-25] MEDS: ENOXAPARIN 40 MG/0.4 ML SYR SC SCH (20:35)
[2016-08-25] MEDS: ACETAMINOPHEN 500 MG TAB PO PRN (23:11)
[2016-08-26 00:01] VITALS: BP 148/79; PULSE 71; TEMP 37.1; O2SAT 95
[2016-08-26 03:57] VITALS: BP 137/68; PULSE 72; TEMP 36.9; O2SAT 95
[2016-08-26] MEDS: ACETAMINOPHEN 500 MG TAB PO PRN (05:10)
[2016-08-26 05:49] LABS: HEMATOCRIT 42.4 % (42-52); MEAN CELL VOLUME 92.6 fL (80-100); MEAN CORPUSCULAR HEMOGLOBIN 32.3 pg (25-34); MEAN CORPUSCULAR HGB CONC 34.9 g/dl (32-36); MEAN PLATELET VOLUME 9.5 fL (7.4-10.4); PLATELET COUNT 197 K/uL (130-400); RED BLOOD COUNT 4.58 M/uL (4.7-6.1); WHITE BLOOD COUNT 10.11 K/uL (4.8-10.8)
[2016-08-26 06:14] LABS: BUN/CREATININE RATIO 13.2 (10-20); CALCIUM 8.2 mg/dl (8.5-10.1); CREATININE 0.99 mg/dl (0.60-1.40)
[2016-08-26 07:38] VITALS: BP 117/66; PULSE 81; TEMP 36.8; O2SAT 94
[2016-08-26] MEDS: ASPIRIN 81 MG ECTAB PO SCH (07:46)
[2016-08-26] MEDS ORDERED: METOPROLOL SUCC 50MG EXT REL TAB PO SCH (09:00)
[2016-08-26] MEDS ORDERED: DILTIAZEM HCL 240 MG CAPCR PO SCH (09:00)
[2016-08-26 10:56] VITALS: BP 149/81; PULSE 68; TEMP 36.8; O2SAT 96
--- NOTE | 2016-08-26 13:28 | Cardiology Follow-Up ---
Subjective Date of Service: Aug 26, 2016. Pt evaluation today including: conversation w/ patient, physical exam, lab review, review of studies, review of inpatient medication list History of Present Illness This is a 60-year-old male with a history of hypertension, hyperlipidemia and obesity as well as a history of some type of tachycardia. He has had tachycardia for several years, it is paroxysmal and the mechanism is uncertain. I believe it has been presumed to be a paroxysmal supraventricular tachycardia of some type, however it was never documented until this admission. He was feeling poorly (unrelated to his heart rate) and presented to an urgent care center where he had an elevated heart rate. Electrical cart a gram demonstrated atrial flutter with 2-1 AV conduction and he was transferred to the emergency room. Initial treatment included metoprolol and IV diltiazem, left ventricular function was good and he also has a relatively recently identified left bundle branch block (with a negative Lyme screen). He converted quickly back to sinus rhythm. He is being evaluated for a fever. He had an LP done yesterday, during the procedure he converted into atrial fibrillation at a relatively controlled heart rate and this remained until about 1 AM this morning. He seems completely unaware of the arrhythmia and the rate was fairly well controlled with only slight heart rate elevation. Social History Smoking Status: Former Smoker History of Alcohol Use: Yes (OCC BEER) Review of Systems Respiratory: No cough, No dyspnea at rest, No dyspnea on exertion Cardiac: No chest pain Medications Cardiovascular: Item Value Date Time Metoprolol 200 mg 08/26/16 0900 Succinate QAM/PO 08/26/16 0746 (Toprol Xl Tab) Diltiazem HCl 240 mg 08/26/16 0900 (Cardizem Cd Cap) QAM/PO 08/26/16 0745 Aspirin 81 mg 08/23/16 0900 (Ecotrin Tab) QAM/PO 08/26/16 0746 Enoxaparin Sodium 40 mg 08/22/16 2100 (Lovenox Inj) Q24H/SC 08/25/162034 Objective Vital Signs Past 12 Hours Date Time Temp Pulse Resp B/P Pulse Ox O2 Delivery O2 Flow Rate FiO2 08/26/16 12:00 Room Air 08/26/16 10:56 36.8 68 18 149/81 96 Room Air 08/26/16 08:00 Room Air 08/26/16 07:38 36.8 81 18 117/66 94 Room Air 08/26/16 04:00 Room Air 08/26/16 03:57 36.9 72 18 137/68 95 Room Air Last Recorded Weight-Kilograms: 113.400 Intake & Output 8-Hour Column 08/25/16 08/26/16 08/26/16 16:00 00:00 08:00 Intake Total 1035 ml 360 ml 200 ml Output Total 1050 ml 1275 ml Balance -15 ml 360 ml -1075 ml 24-Hour Column 08/26/16 08:00 Intake Total 1595 ml Output Total 2325 ml Balance -730 ml Physical Exam Constitutional: Level of Distress: NAD Lungs: Auscultation: breath sounds normal Cardiovascular: Heart Auscultation: RRR, no murmurs Extremities: no edema Data Laboratory Results: Last 24 Hours Test 08/26/16 04:57 White Blood Count 10.11 K/uL Red Blood Count 4.58 M/uL Hemoglobin 14.8 g/dL Hematocrit 42.4 % Mean Corpuscular Volume 92.6 fL Mean Corpuscular Hemoglobin 32.3 pg Mean Corpuscular Hemoglobin Concent 34.9 g/dl RDW Standard Deviation 45.8 fL RDW Coefficient of Variation 13.6 % Platelet Count 197 K/uL Mean Platelet Volume 9.5 fL Sodium Level 142 mmol/L Potassium Level 4.0 mmol/L Chloride Level 108 mmol/L Carbon Dioxide Level 29 mmol/L Anion Gap 5.0 mmol/L Blood Urea Nitrogen 13 mg/dl Creatinine 0.99 mg/dl Est Creatinine Clear Calc Drug Dose 91.9 ml/min Estimated GFR () 96.2 Estimated GFR (Non- 83.0 BUN/Creatinine Ratio 13.2 Random Glucose 97 mg/dl Calcium Level 8.2 mg/dl Telemetry reviewed: Sinus rhythm over the last 24 hours without recurrent atrial fibrillation, heart rate controlled. Assessment and Plan #1. Atrial flutter: He has a history of very infrequent relatively brief episodes of palpitations that he is aware of consistent with paroxysmal atrial flutter or fibrillation. Historically the episodes sound brief enough and infrequent enough and his chads score is 1 therefore he has not been anticoagulated, however he has been relatively asymptomatic during atrial fibrillation here in the hospital and he may have more of it than he realizes. I did switch him to 200 mg daily of metoprolol succinate and 240 mg of Cardizem CD this morning from a short acting drugs. #2. Anticoagulation status: His Oj-vasc score is 1 (only hypertension I believe) therefore his stroke risk is about 1.3% per year. With a score of 1 we can consider anticoagulation although it is perhaps not essential. His bleeding risk is low. I discussed this with him, I would not use warfarin but if we can use one of the newer agents it may be reasonable. He is agreeable to try it, however recommend Eliquis 5 mg twice a day. Thank you for allowing me to participate in his care.
[2016-08-26] MEDS ORDERED: CRDCD240 PO (14:40)
[2016-08-26] MEDS ORDERED: METO1TAB71 PO (14:40)
--- NOTE | 2016-08-26 15:00 | Discharge Instructions ---
Discharge Instructions Date of Service Aug 26, 2016. Admission Reason for Admission: Atrial Fibrillation; Fever and headache. Discharge Discharge Diagnosis / Problem: 1. Atrial fibrillation / flutter-improved. 2. Febrile illness-resolved. Discharge Goals Goal(s): Improve disease control, Learn about illness, Diagnostic testing, Therapeutic intervention Activity Recommendations Activity Limitations: resume your previous activity (as tolerated ) . Instructions / Follow-Up Instructions / Follow-Up From Dr. Ferro - 1. atrial fibrillation / flutter - * this was discovered at the time of your admission * this was the likely cause of some of your symptoms at home * it is now under very good control with medications * take the following to control your a. fib/flutter - * toprol xl (metoprolol xl) 200mg once daily; note that your dose has been increased * cardizem cd 240mg once daily * if you change your mind about blood thinners please let Dr. Crespo know at your next visit * you do not need to take a daily aspirin at home 2. high blood pressure - * please stop your norvasc * please stop your hydrochlorothiazide * because of the larger dose of metoprolol and the new cardizem you no longer need to take the norvasc or hydrochlorothiazide 3. stop your potassium supplement since you are no longer on the hydrochlorothiazide 4. fever, headache, suspected viral illness - * all bacterial causes of illness were ruled out * you had no evidence of pneumonia, infection of the pilonidal cyst, urinary tract infection, blood stream infection, or meningitis (infection of the brain) * your Lyme's testing was negative * you have kidney stones but these are not active at this time and not the cause of your illness * we are awaiting a host of tests for various viruses as well as 2 other tick illnesses; these tests will return next week and Dr. Valdez will be able to access these tests * the CAT scans of your chest and abdomen showed areas of swollen glands/lymph nodes * it is likely that the swollen glands was from the infection * we are recommending repeat CAT scans in about 6 weeks (especially if you are feeling poorly) to ensure that the swollen glands have resolved 5. abnormal liver tests - * I suspect they were a part of the illness * please do not take any tylenol until your liver tests are repeated by Dr. Valdez next week * abstain from alcohol until your liver tests are shown to be normal * it is OK to take motrin or naprosyn for pain, headache, etc 6. headache - * if you experience a severe headache that worsens with going from a lying/ seated position to standing position please report back to the ER as this could represent a "spinal headache" * a spinal headache is a complication of a lumbar puncture * at this time it does not appear you have a spinal headache * take prednisone for 4 days starting tomorrow on 08/27/16; take the prednisone with food 7. Return to [facility] with recurrent fevers, especially if over 101 degrees; headache that won't resolve with motrin or naprosyn or headache that is worse with standing; neck pain; vomiting; chest pain; palpitations; etc. 8. Appointments - * see Dr. Valdez next week * see Dr. Misael Crespo, cardiology, in 2-3 weeks Current Hospital Diet Patient's current hospital diet: Regular Diet Discharge Diet Recommended Diet: AHA Diet (Heart Healthy) Procedures Procedures Performed: 1. Lumbar puncture - NORMAL. No evidence of meningitis. 2. CAT scan of the brain - NORMAL. 3. CAT scan of the chest, abdomen, and pelvis - lymph node enlargement present in the chest and abdomen. 4. Echocardiogram - NORMAL heart function, normal heart valves. Pending Studies Studies pending at discharge: yes List of pending studies: 1. Crosby titer (viral illness) 2. CMV titer (viral illness) 3. Toxoplasmosis titer (parasite disease) 4. Ehrlichia titer (tick illness) 5. Anaplasmosis titer (tick illness) 6. Parvovirus titer (viral illness) Laboratory Results Hemoglobin A1c Test 06/10/16 10:27 Range/Units Estimated Average Glucose 120 mg/dl Hemoglobin A1c 5.8 H 4.5-5.6 % Lipid Panel Test 08/23/16 06:33 Range/Units Triglycerides Level 169 H 0-150 mg/dl Cholesterol Level 149 0-200 mg/dl HDL Cholesterol 32 mg/dl Cholesterol/HDL Ratio 4.7 LDL Cholesterol, Calculated 83 mg/dl Medical Emergencies . Who to Call and When: Medical Emergencies: If at any time you feel your situation is an emergency, please call 911 immediately. . Non-Emergent Contact Non-Emergency issues call your: Primary Care Provider Call Non-Emergent contact if: temperature is above 101, your pain is not controlled, your pain is worsening, your pain is concerning you, wound has increased drainage (pilonidal cyst), wound has increased redness (pilonidal cyst ), wound has increased pain, you have any medication questions . . "Provider Documentation" section prepared by Gabe Ferro. VTE Core Measure Inpt VTE Proph given/why not?: Enoxaparin (Lovenox)SQ, SCD's
[2016-08-26] MEDS: OXYCODONE HCL IR 5 MG TAB (IMMEDIATE RELEASE) PO PRN (15:02)
[2016-08-26 15:05] VITALS: BP 131/78; PULSE 68; TEMP 36.8; O2SAT 97
[2016-08-26] MEDS ORDERED: NAPROXEN 250 MG TAB PO ONE (15:30)
[2016-08-26 15:36] LABS: ANAPLASMA PHAGOCYTOPHIL IGG <1:64 (<1:64); ANAPLASMA PHAGOCYTOPHIL IGM <1:20 (<1:20); EHRLICHIA CHAFF IGG AB <1:64 (<1:64); EHRLICHIA CHAFF IGM AB <1:20 (<1:20)
[2016-08-26] MEDS ORDERED: METHYLPREDNISOLONE IV 60 MG in SYRINGE 0 ML IV ONE (15:45)
[2016-08-26] MEDS ORDERED: METHYLPREDNISOLONE IV 40 MG in SYRINGE 0 ML IV ONE (16:00)
[2016-08-26] MEDS ORDERED: PRD10 PO (17:39)
[2016-08-26 18:25] VITALS: BP 131/78; PULSE 68; TEMP 36.8; O2SAT 97
--- NOTE | 2016-08-27 00:39 | Discharge Summary ---
Discharge Summary Date of Service Aug 26, 2016. Discharge Summary Admission Date: Aug 22, 2016 at 16:28 Discharge Date: Aug 26, 2016 Discharge Disposition: Home Principal Diagnosis: atrial fibrillation/flutter Problems/Secondary Diagnoses: 1. sepsis/febrile illness, etiology uncertain but favor viral process - resolved 2. abnormal LFTs - improving 3. HTN 4. multiple kidney stones 5. lymphadenopathy of the chest and abdomen - thought 2nd to #1 above, but will need follow-up and repeat imaging 6. GERD 7. obesity with BMI 42 8. acute kidney injury / acute kidney failure 2nd to sepsis - resolved 9. h/o gout 10. pilonidal cyst 11. h/o paroxysmal SVT Procedures: 1. echocardiogram: -- Conclusions -- 1. Normal LV size. Borderline concentric LVH. 2. Normal LV function. LVEF 55-60%. Abnormal septal motion consistent with conduction abnormality. 3. Normal RV size and function. 4. No significant valvular pathology. 5. No prior studies for comparison. 2. CT head: negative for stroke, sinusitis, ICH. 3. lumbar puncture under fluoro guidance 4. CT chest: IMPRESSION: 1. No consolidation to suggest pneumonia. 2. Mild mediastinal and bilateral hilar lymphadenopathy. This is nonspecific and differential considerations include a lymphoproliferative process such as lymphoma as well as granulomatous processes. 3. Fatty liver. 5. CT abd/pelvis: IMPRESSION: 1. Bilateral nephrolithiasis. There is also an 8 mm stone within the right renal pelvis. No hydronephrosis. No ureteral calculi. 2. Cholecystectomy. 3. Hepatic steatosis. 4. No bowel wall thickening or obstruction. 5. Mildly enlarged periportal lymph nodes. There are also partially imaged mildly enlarged subcarinal lymph nodes. This could represent a lymphoproliferative disorder. Consultations: 1. cardiology - Misael Crespo MD 2. infectious disease - Neelima Felix DO 3. radiology for lumbar puncture Medication Reconciliation New Medications: Prednisone (Prednisone) 10 Mg Tab 10 MG PO DIRECTED, #10 TAB 0 Refills start 08/27/16: take 4 tabs day 1, 3 tabs day 2, 2 tabs day 3, 1 tab day 4, then stop. Diltiazem HCl (Diltiazem Cd) 240 Mg Capcr 240 MG PO QAM, #30 CAP 5 Refills for a. fib/flutter Metoprolol Succinate (Toprolxl (Toprol-Xl) 200 Mg Tabcr 200 MG PO DAILY, #30 TAB 5 Refills for a. fib/flutter Continued Medications: Allopurinol (Zyloprim) 100 Mg Tab 200 MG PO QAM, TAB Naproxen (Naprosyn) 500 Mg Tab 500 MG PO BID PRN for Pain, TAB Ranitidine (Zantac) 150 Mg Tab 150 MG PO DAILY PRN for Indigestion, TAB Discontinued Medications: Amlodipine (Norvasc) 10 Mg Tab 10 MG PO QAM, TAB Hydrochlorothiazide (Hctz) 50 Mg Tab 50 MG PO QAM, TAB Metoprolol Tartrate (Lopressor) (Lopressor) 50 Mg Tab 50 MG PO BID, TAB Potassium Chloride (Micro-K Ext Rel) 10 Meq Capcr 10 MEQ PO QAM, CAP Sulfamethoxazole-Trimethoprim (Smz-Tmp Ds) 1 Tab Tab 1 TAB PO BID for 10 Days, #20 TAB STARTED 08/17/16 FOR 7 DAYS, MAY REFILL IF CYST STILL DRAINING. Referrals At Discharge Follow up Referrals: [facility] Referral - Please Call For Appointment with Misael Crespo M.D. Discharge Exam Physical Exam: General Appearance: no apparent distress, + obese ENT: pharynx normal Neck: + adenopathy present (b/l, each node about 1cm or less in size; these nodes have decreased in size over serial exams ) Respiratory/Chest: lungs clear, no respiratory distress, no accessory muscle use Cardiovascular: regular rate, rhythm, no gallop, no murmur, normal peripheral pulses Abdomen / GI: normal bowel sounds, non tender, soft, no organomegaly Extremities: no pedal edema Neurologic/Psychiatric: no motor/sensory deficits, alert, normal mood/affect , normal reflexes, oriented x 3 Skin: no rash, + pertinent finding (pilonidal cyst tract over gluteal cleft area) Lymphatic: + pertinent finding (no axillary or inguinal lymphadenopathy palpated during his stay) Hospital Course HISTORY OF PRESENT ILLNESS: Mr. Bonds is a 60-year-old male who has suffered from PSVT in the past. Prior to his hospital presentation he was wearing a Holter monitor prescribed by Dr. Valdez to try to catch his arrhythmia. The patient stated that over the last week he has had a flu-like illness with significant frontal headache and a fever up to 101. The patient stated he had had myalgias and arthralgias associated with this. Preceding this symptom complex, the patient had been intermittently bothered by a pilonidal cyst at the apex of his gluteal fold over the last few months. When he visited Dr. Valdez for the flu-like illness the pilonidal cyst looked more inflamed according to the patient. At that time Dr. Valdez prescribed Bactrim-DS for 1 week. The patient had, however, continued to feel poorly. He complained of generalized fatigue, weakness, and headache. He described his headache as a pounding sensation. He also had had some cough. Due to ongoing symptoms he went to the local [facility] where he was found to be tachycardic. [facility] promptly referred him to the [facility] ER where he was found to be in rapid atrial flutter. The patient received 2 boluses of Cardizem and a Cardizem drip was started at 10 mg an hour. The patient was being wheeled to CAT scan for imaging of his head due to his headache when he broke into sinus rhythm. He was subsequently admitted for treatment of his febrile illness and the atrial flutter. HOSPITAL COURSE: 1. febrile illness / suspected sepsis - The patient met criteria for sepsis with acute renal failure, elevated WBC count , fever, etc. He underwent an extensive work-up for this including blood cultures, urine culture, lumbar puncture, CT head/chest/abd/pelvis, chest x-ray, and numerous lab studies. Blood/urine/CSF cultures all remained negative. Rapid flu test was negative. Lyme's IgM and IgG were both negative. Chest x-ray and Chest CT failed to show pneumonia. Monospot was negative. HIV and RPR were both negative. CT head failed to show sinusitis. Ehrlichia and anaplasmosis titers ultimately returned negative. CT chest/abd/pelvis showed lymphadenopathy in each location. Given the acuity of his illness, the presence of abnormal LFTs, and his constellation of symptoms it was felt that his clinical presentation was likely viral in nature. For that reason EBV, CMV, and parvovirus titers were sent. Toxoplasmosis titers were also ordered. He was seen in consult by infectious disease who agreed with the work-up as noted above. They, too, counseled the patient that although an infectious process was likely causing his current symptoms that lymphoma and granulomatous disease were still possible etiologies and follow-up in the future was mackey. For the 48 hours prior to discharge he remained afebrile. Appetite returned to normal. Headache, although still present, improved as well. Leukocytosis resolved. The patient was discharged on NO antibiotics as no bacterial source was found. At discharge the following were recommended: 1. close follow-up with Dr. Valdez to review viral studies and toxoplasmosis titers and to ensure ongoing clinical improvement 2. arrange CT scans for chest/abd/pelvis in 4-6 weeks to ensure resolution of lymphadenopathy 3. repeat LFTs to ensure normalization 2. atrial flutter / fibrillation - The patient's atrial dysrhythmia was managed with AV jeffrey agents including beta javi and calcium channel javi. He underwent echocardiogram which was normal. He was seen in consult by Dr. Misael Crespo who recommended ongoing rate control with toprol xl and cardizem CD. CHADS score was 1 and thus anticoagulation was deferred by the patient. At discharge the patient was in NSR. Follow-up with Dr. Crespo was recommended. 3. abnormal LFTs - the patient had evidence of transaminitis. He has had his gall bladder surgically removed in the past, and he had NO GI symptoms while here. His AST, ALT, and alk phos improved serially. He was advised to avoid tylenol and alcohol until LFTs could be repeated as an outpatient. 4. lymphadenopathy as seen on imaging and as palpated on exam - see discussion above regarding repeat imaging studies. 5. headache - this gradually improved during his stay but the intensity waxed/ waned. Since he did not experience complete relief of the headache with tylenol, NSAIDs , and narcotics he was given IV steroids on the day of discharge with improvement. He will complete a low-dose taper of prednisone after discharge for the headache. Of note - he did NOT have features of spinal headache at discharge but was counseled on symptoms/signs of such. 6. HTN - his norvasc and HCTZ were discontinued as his toprol dose was increased and cardizem was added. BPs remained well-controlled while here. 7. pilonidal cyst - this was stable during his stay and without any features of superimposed infection. Bactrim was discontinued. 8. acute kidney injury - Cr peaked at 1.7, improving to 0.9 at discharge. This was likely due to sepsis. Bactrim could have played a role as well. Total Time Spent: Greater than 30 minutes This includes examination of the patient, discharge planning, medication reconciliation, and communication with other providers. Discharge Instructions Please refer to the electronic Patient Visit Report (Discharge Instructions) for additional information. Follow-Up 1. see Dr. Franco Valdez on Tuesday, August 30, [address] Misael Crespo, cardiology, within 2-3 weeks Additional Copies To Franco Valdez M.D.; Misael Crespo M.D.; Jennifer. Felix D.Selena.
[2016-08-28 01:27] LABS: CYTOMEGALOVIRUS IGG AB <0.91; EBV EARLY ANTIGEN AB <0.91 INDEX; EPSTEIN BARR VIR CAPSID IGG 4.42 INDEX; PARVOVIRUS IgG INDEX 4.9 (<0.9); PARVOVIRUS IgM INDEX 0.1 (<0.9)
--- NOTE | 2016-08-29 21:36 | Progress Note ---
Progress Note Date of Service Aug 29, 2016. Progress Note 2129 Late entry for phone call to patient at his home. I updated him that all viral studies, toxo titer, and all tick-borne pathogen titers were negative. He reported the following - 1. ongoing, intermittent sweats but no fever 2. overall feeling ok 3. slight headache only 4. HRs 60-70 range 5. systolic BPs 150s Recommended he restart his HCTZ at 1/2 the previous dose (25mg rather than 50mg) . Resume K supplement. Cont other a. flutter AV jeffrey agents as previous. Discussed etiologies for recent illness - either unidentified viral process vs inflammatory disorder (e.g. sarcoid) vs lymphoma. discussed that if he continues to have sweats, fevers, etc he would need lymph node biopsy for diagnosis, additional imaging, etc. he voiced understanding. he has f/u with Dr. Valdez tomorrow on 08/30/16. Gabe Ferro MD
[2016-08-30 09:29] LABS: ISTAT CREATININE 1.3 mg/dl (0.6-1.3); ISTAT HEMOGLOBIN 16.7 g/dl (14.0-18.0); ISTAT IONIZED CALCIUM 1.06 mmol/l (1.12-1.32)
== END 2016-08-26 19:10 | disposition home or self-care (01) | DRG 872 ==
LOC: ENRESERVDT → ENRESERVTM → C.EDB 14:38 → C.2T 16:28
PROVIDERS: ADMIT Internal Medicine; ATTEND Internal Medicine
PROC: 009U3ZX Drainage of Spinal Canal, Percutaneous Approach, Diagnostic (ICD-10-PCS; principal; 2016-08-22)
DX: A41.9 Sepsis, unspecified organism (principal); I48.92 Unspecified atrial flutter; N17.9 Acute kidney failure, unspecified; C85.90 Non-Hodgkin lymphoma, unspecified, unspecified site; I47.1 Supraventricular tachycardia; Z68.41 Body mass index [BMI] 40.0-44.9, adult; I10 Essential (primary) hypertension; K21.9 Gastro-esophageal reflux disease without esophagitis; M10.9 Gout, unspecified; Z87.442 Personal history of urinary calculi; Z79.899 Other long term (current) drug therapy; Z87.891 Personal history of nicotine dependence; Z83.3 Family history of diabetes mellitus; E78.00 Pure hypercholesterolemia, unspecified; I48.91 Unspecified atrial fibrillation; Z90.49 Acquired absence of other specified parts of digestive tract; E66.9 Obesity, unspecified; K59.00 Constipation, unspecified; L05.91 Pilonidal cyst without abscess; N20.0 Calculus of kidney; B34.9 Viral infection, unspecified

== ENCOUNTER → 2016-08-30 | Outpatient (CLI) | payer BC ==
[~2016-08-30] MED LIST changes: -AMLO-114 PO; -HYDR50TA3 PO; -METO50TA16 PO; -POTA10CA28 PO; -SULF-183 PO
[2016-08-30 17:45] LABS: HEMATOCRIT 46.5 % (42-52); MEAN CORPUSCULAR HEMOGLOBIN 33.3 pg (25-34); MEAN CORPUSCULAR HGB CONC 33.3 g/dl (32-36); MEAN PLATELET VOLUME 10.2 fL (7.4-10.4); PLATELET COUNT 266 K/uL (130-400); RED BLOOD COUNT 4.65 M/uL (4.7-6.1); WHITE BLOOD COUNT 12.51 K/uL (4.8-10.8)
[2016-08-30 18:15] LABS: ALT/SGPT 185 U/L (12-78); BLOOD UREA NITROGEN 20 mg/dl (7-18); BUN/CREATININE RATIO 17.9 (10-20); CALCIUM 9.3 mg/dl (8.5-10.1); CARBON DIOXIDE 30 mmol/L (21-32); CHLORIDE 104 mmol/L (98-107); GLUCOSE 113 mg/dl (70-99); POTASSIUM 4.6 mmol/L (3.5-5.1); SODIUM 141 mmol/L (136-145)
[2016-08-30 18:18] LABS: ALB/GLOB RATIO 0.7 (0.9-2); ALKALINE PHOSPHATASE 120 U/L (45-117); AST/SGOT 33 U/L (15-37)
[2016-08-30 18:20] LABS: BASO ABS # 0.45 K/uL (0-0.2); BASOPHIL % 3.6 % (0-2); COMPLETE YES; EOSINOPHIL % 0.9 %; LYMPHOCYTE % 14.4 %; META ABS # 0.23 K/uL (0-0); METAMYELOCYTE % 1.8 %; MYELOCYTE % 0.9 %; NEUTROPHILS % 73.9 %
== END | disposition home or self-care (01) ==
LOC: C.LABPBG 11:36
PROVIDERS: ATTEND Internal Medicine
DX: I10 Essential (primary) hypertension (principal)

== ENCOUNTER → 2016-10-15 | Outpatient (CLI) | payer BC ==
[~2016-10-15] MED LIST changes: +HYD50 PO; +HYDR-3419 PO; +METO-649 PO; +METO100T44 PO; -METO1TAB71 PO; +OPTIRAY 320 IV PRN; +POTA20TA16 PO; +TAMS0.4C38 PO
--- NOTE | 2016-10-15 17:12 | DIAGNOSTIC IMAGING REPORT ---
CT ABD/PELVIS IV CONTRAST ONLY CLINICAL HISTORY: LYMPHADENOPATHY COMPARISON STUDY: 08/23/2016 TECHNIQUE: Following the IV administration of 94 mL of Optiray-320, CT scan of the abdomen and pelvis was performed from the lung bases to the proximal femurs. Images are reviewed in the axial, sagittal, and coronal planes. IV contrast was administered without complication. CT DOSE: 1569.42 mGy.cm FINDINGS: Lower chest: There are dependent atelectatic changes. Liver: There is hepatic steatosis. No focal masses are visualized. The portal vein appears patent. Gallbladder: Surgically absent Spleen: Normal in size and attenuation. Pancreas: Unremarkable. Adrenal glands: Unremarkable. Kidneys: There are multiple bilateral renal calculi. The largest on the right measures 7 mm. The largest on the left measures 5 mm. There are 2 tangential proximal right ureteral calculi with secondary obstructive changes. These measure 7 mm and 6 mm respectively. These are located the L3-4 level. Bowel: There are no transition zone to indicate bowel obstruction. The appendix appears normal. There is no acute diverticulitis. Peritoneum: There is no intraperitoneal free air or abdominal ascites. Vasculature: The abdominal aorta is normal in course and caliber. Adenopathy: There is been slight interval decrease in the size of the mildly enlarged periportal lymph nodes. The largest measures 36 x 12 mm. This previously measured 40 x 16 mm. Pelvic viscera: The bladder, and pelvic viscera are unremarkable. Skeletal structures: No destructive osseous lesions are seen. IMPRESSION: 1. Bilateral nephrolithiasis 2. There are 2 tangential proximal right ureteral calculi with mild secondary obstructive changes 3. No evidence of bowel obstruction. No evidence of free air 4. Normal appendix 5. Slight interval decrease in the size of mildly enlarged periportal lymph nodes Electronically signed by: Surinder Solo M.D. 10/15/2016 5:11 PM Dictated Date/Time: 10/15/2016 5:05 PM
== END | disposition home or self-care (01) ==
LOC: C.CTS 16:23
PROVIDERS: ATTEND Internal Medicine
DX: R59.1 Generalized enlarged lymph nodes (principal)

== ENCOUNTER → 2016-10-20 | Outpatient (CLI) | payer BC ==
[~2016-10-20] MED LIST changes: -OPTIRAY 320 IV PRN
[2016-10-20 19:17] LABS: BASO % 0.3 %; BASO ABS # 0.03 K/uL (0-0.2); COMPLETE YES; EOS % 3.2 %; HEMATOCRIT 45.3 % (42-52); IG% 0.3 %; LYMPH % 18.8 %; LYMPH ABS # 1.97 K/uL (1.2-3.4); MEAN CELL VOLUME 95.2 fL (80-100); MEAN CORPUSCULAR HEMOGLOBIN 32.8 pg (25-34); MEAN CORPUSCULAR HGB CONC 34.4 g/dl (32-36); MEAN PLATELET VOLUME 8.8 fL (7.4-10.4); MONO % 10.7 %; NEUT % 66.7 %; PLATELET COUNT 250 K/uL (130-400); RED BLOOD COUNT 4.76 M/uL (4.7-6.1); WHITE BLOOD COUNT 10.47 K/uL (4.8-10.8)
[2016-10-20 19:41] LABS: ALT/SGPT 55 U/L (12-78); AST/SGOT 25 U/L (15-37); BLOOD UREA NITROGEN 22 mg/dl (7-18); BUN/CREATININE RATIO 18.3 (10-20); CALCIUM 9.4 mg/dl (8.5-10.1); CARBON DIOXIDE 28 mmol/L (21-32); CHLORIDE 104 mmol/L (98-107); GLUCOSE 105 mg/dl (70-99); POTASSIUM 3.8 mmol/L (3.5-5.1); SODIUM 140 mmol/L (136-145)
[2016-10-20 19:44] LABS: ALKALINE PHOSPHATASE 83 U/L (45-117)
== END | disposition home or self-care (01) ==
LOC: C.LAB 18:47
PROVIDERS: ATTEND Internal Medicine
DX: I10 Essential (primary) hypertension (principal)

== ENCOUNTER → 2017-01-12 | Outpatient (CLI) | payer BC ==
[~2017-01-12] MED LIST changes: -HYD50 PO; -HYDR-3419 PO; -METO-649 PO; -METO100T44 PO; +METO1TAB71 PO; -POTA20TA16 PO; -TAMS0.4C38 PO
== END | disposition home or self-care (01) ==
LOC: C.LABSPEC 17:06
PROVIDERS: ATTEND Urology
DX: N20.0 Calculus of kidney (principal)

== ENCOUNTER → 2017-05-03 | Outpatient (CLI) | payer BC ==
[~2017-05-03] MED LIST changes: +HYD50 PO; +HYDR-3419 PO; +METO-649 PO; +METO100T44 PO; -METO1TAB71 PO; +POTA20TA16 PO; +REGADENOSON 0.4 MG/5 ML SYR ONE; +TAMS0.4C38 PO
--- NOTE | 2017-05-03 12:46 | ECHOCARDIOGRAM REPORT ---
*NOTICE TO RECEIVING REPUBLICAN AGENCY This information is strictly Confidential and protected under [place] law. [place] law prohibits you from making any further disclosure of this information unless further disclosure is expressly permitted by the written consent of the person to whom it pertains or is authorized by law. A general authorization for the release of medical or other information is not sufficient for this purpose. Hospital accepts no responsibility if the information is made available to any other person, INCLUDING THE PATIENT. Interpretation Summary * Name: RIP OSHEA Study Date: 05/03/2017 11:10 AM * Patient Location: .NUCL\S\S229\S\2 HR: 59 * : 1955 (M/d/yyyy) Gender: Male Height: 64 in * Age: 61 yrs Ethnicity: CA Weight: 260 lb * Ordering Physician: Misael Crespo * Referring Physician: Misael Crespo * Performed By: Ximena Gallagher RCS * * Reason For Study: DYSPNEA ON EXERTION * BSA: 2.2 m2 * Low normal overall left ventricular systolic function. * Mild left ventricular hypertrophy. * Type I left ventricular diastolic dysfunction. * Mild left atrial dilatation. * Trace tricuspid and pulmonic regurgitation. Procedure Details * A complete two-dimensional transthoracic echocardiogram was performed (2D, M-mode, Doppler and color flow Doppler). * The study was technically difficult. * A contrast injection of Definity was performed to improve assessment of LV function. * Contrast was injected into an intravenous site in the left arm. * One vial of Definity ultrasound contrast was diluted in normal saline to a total volume of 10 ml. A total of '2' ml of solution was administered during imaging. * Lot # [id number] of Definity utilized for procedure. * Expiration date MAY 30. * The attending nurse who injected the contrast agent was JESSE CARD RN. Left Ventricle * The left ventricle is normal in size. * Focal thickening of the basal septum with no evidence of left ventricular outflow obstruction. * The other LV segments have mild hypertrophy. * Ejection Fraction = 50-55%. * Left ventricular systolic function is low normal. * A full diastolic examination was done with clinical findings of Class I diastolic dysfunction. * The left ventricular wall motion is normal. Right Ventricle * The right ventricle is normal in size and function. Atria * The left atrium is mildly dilated. * Right atrial size is normal. Mitral Valve * The mitral valve is normal. * There is no mitral valve stenosis. * There is no mitral regurgitation noted. Tricuspid Valve * The tricuspid valve is not well visualized, but is grossly normal. * There is no tricuspid stenosis. * There is trace tricuspid regurgitation. * Right ventricular systolic pressure is normal. Aortic Valve * The aortic valve is not well visualized. * The aortic valve is trileaflet. * The aortic valve opens well. * Aortic stenosis is absent. * No aortic regurgitation is present. Pulmonic Valve * The pulmonary valve is inadequately visualized, but the Doppler data is adequate for interpretation. * There is no pulmonic valvular stenosis. * Trace pulmonic valvular regurgitation. Great Vessels * The aortic root is normal size. Pericardium/Pleural * There is no pericardial effusion. Great Vessels * Inferior vena cava not visualized MMode 2D Measurements and Calculations IVSd 1.2 cm IVSs 2.1 cm LVIDd 4.9 cm LVIDs 3.2 cm LVPWd 1.2 cm LVPWs 1.7 cm IVS/LVPW 1.0 FS 34.1 % EDV(Teich) 111.3 ml ESV(Teich) 41.2 ml EF(Teich) 63.0 % EDV(cubed) 115.6 ml ESV(cubed) 33.0 ml EF(cubed) 71.4 % % IVS thick 78.1 % % LVPW thick 49.5 % LV mass(C)d 215.1 grams LV mass(C)dI 98.4 grams/m\S\2 LV mass(C)s 261.7 grams LV mass(C)sI 119.7 grams/m\S\2 SV(Teich) 70.1 ml SI(Teich) 32.0 ml/m\S\2 SV(cubed) 82.6 ml SI(cubed) 37.8 ml/m\S\2 Ao root diam 3.2 cm Ao root area 8.0 cm\S\2 ACS 2.1 cm LA dimension 4.3 cm LA/Ao 1.3 LVOT diam 2.0 cm LVOT area 3.1 cm\S\2 LVAd ap4 46.8 cm\S\2 LVLd ap4 10.1 cm EDV(MOD-sp4) 179.5 ml EDV(sp4-el) 185.1 ml LVAs ap4 29.8 cm\S\2 LVLs ap4 8.9 cm ESV(MOD-sp4) 82.4 ml ESV(sp4-el) 85.1 ml EF(MOD-sp4) 54.1 % EF(sp4-el) 54.0 % LVAd ap2 51.9 cm\S\2 LVLd ap2 10.2 cm EDV(MOD-sp2) 222.5 ml EDV(sp2-el) 223.9 ml LVAs ap2 33.7 cm\S\2 LVLs ap2 9.0 cm ESV(MOD-sp2) 101.3 ml ESV(sp2-el) 107.4 ml EF(MOD-sp2) 54.5 % EF(sp2-el) 52.0 % LVLd %diff 1.6 % EDV(MOD-bp) 200.7 ml LVLs %diff 0.94 % ESV(MOD-bp) 89.7 ml EF(MOD-bp) 55.3 % SV(MOD-sp4) 97.2 ml SI(MOD-sp4) 44.4 ml/m\S\2 SV(MOD-sp2) 121.2 ml SI(MOD-sp2) 55.4 ml/m\S\2 SV(MOD-bp) 111.1 ml SI(MOD-bp) 50.8 ml/m\S\2 SV(sp4-el) 100.0 ml SI(sp4-el) 45.7 ml/m\S\2 SV(sp2-el) 116.5 ml SI(sp2-el) 53.3 ml/m\S\2 Doppler Measurements and Calculations MV E max dyan 44.0 cm/sec MV A max dyan 55.7 cm/sec MV E/A 0.79 MV P1/2t max dyan 59.5 cm/sec MV P1/2t 71.5 msec MVA(P1/2t) 3.1 cm\S\2 MV dec slope 243.7 cm/sec\S\2 MV dec time 0.25 sec Ao V2 max 117.3 cm/sec Ao max PG 5.5 mmHg Ao max PG (full) 3.2 mmHg TAMICA(V,A) 2.0 cm\S\2 TAMICA(V,D) 2.0 cm\S\2 LV V1 max PG 2.3 mmHg LV V1 max 75.4 cm/sec PA V2 max 133.3 cm/sec PA max PG 7.1 mmHg PI max dyan 157.0 cm/sec PI max PG 9.9 mmHg PI dec slope 149.1 cm/sec\S\2 PI P1/2t 308.5 msec TR max dyan 258.8 cm/sec
== END | disposition home or self-care (01) ==
LOC: C.NUCL 09:25
PROVIDERS: ATTEND Internal Medicine Cardiovascular Disease
DX: R06.09 Other forms of dyspnea (principal)

== ENCOUNTER 2017-05-20 09:37 | Inpatient (IN) | payer BC ==
[2017-05-04 10:00] VITALS: BMI 46.0
--- NOTE | 2017-05-04 11:03 | PAT Medication Instructions ---
Service Date May 04, 2017. Current Home Medication List Allopurinol (Zyloprim), 300 MG PO QPM Diltiazem HCl (Diltiazem Cd), 240 MG PO QAM Hydrochlorothiazide (Hydrochlorothiazide), 1 TAB PO QAM Hydrocodon/Acetaminophen 5MG/300MG (Vicodin (5MG/300MG)), 1 TAB PO Q4H PRN for Pain Metoprolol Succ (Toprol Xl) (Toprol-Xl ), 200 MG PO QAM Naproxen (Naprosyn), 500 MG PO BID PRN for Pain Potassium Ext Rel (Klor-Con), 10 MEQ PO QAM Ranitidine (Zantac), 150 MG PO DAILY PRN for Indigestion Tamsulosin Hcl (Flomax), Unknown Dose PO UD PRN for kidney stone Medication Instructions For Your Scheduled Surgery - Check with surgeon for instructions: Naproxen (Naprosyn), 500 MG PO BID PRN for Pain - Hold the following medications the morning of surgery: Tamsulosin Hcl (Flomax), Unknown Dose PO UD PRN for kidney stone Ranitidine (Zantac), 150 MG PO DAILY PRN for Indigestion Potassium Ext Rel (Klor-Con), 10 MEQ PO QAM Hydrochlorothiazide (Hydrochlorothiazide), 1 TAB PO QAM - Take the following medications the morning of surgery with a sip of water: Metoprolol Succ (Toprol Xl) (Toprol-Xl ), 200 MG PO QAM Hydrocodon/Acetaminophen 5MG/300MG (Vicodin (5MG/300MG)), 1 TAB PO Q4H PRN for Pain (okay to take up to 4 hours prior to surgery if needed) Diltiazem HCl (Diltiazem Cd), 240 MG PO QAM - Take the following medications as scheduled the night before surgery: Tamsulosin Hcl (Flomax), Unknown Dose PO UD PRN for kidney stone (if needed) Ranitidine (Zantac), 150 MG PO DAILY PRN for Indigestion Hydrocodon/Acetaminophen 5MG/300MG (Vicodin (5MG/300MG)), 1 TAB PO Q4H PRN for Pain (if needed) Allopurinol (Zyloprim), 300 MG PO QPM If you have any questions please call us at [phone] or [phone] or [phone]
[2017-05-04 11:30] LABS: BASO % 0.2 %; BASO ABS # 0.02 K/uL (0-0.2); COMPLETE YES; EOS % 1.5 %; HEMATOCRIT 46.2 % (42-52); IG% 0.5 %; LYMPH % 20.5 %; LYMPH ABS # 1.67 K/uL (1.2-3.4); MEAN CELL VOLUME 95.3 fL (80-100); MEAN CORPUSCULAR HGB CONC 34.6 g/dl (32-36); MEAN PLATELET VOLUME 8.9 fL (7.4-10.4); MONO % 11.3 %; PLATELET COUNT 190 K/uL (130-400); RED BLOOD COUNT 4.85 M/uL (4.7-6.1); WHITE BLOOD COUNT 8.14 K/uL (4.8-10.8)
[2017-05-04 11:41] LABS: PARTIAL THROMBOPLASTIN RATIO 1.1; PROTHROMBIN TIME (PATIENT) 10.4 SECONDS (9.0-12.0)
[2017-05-04 11:45] LABS: URINE APPEARANCE CLEAR (CLEAR); URINE BILIRUBIN NEG (NEG); URINE COLOR DK YELLOW; URINE NITRITE NEG (NEG); URINE SPECIFIC GRAVITY 1.023 (1.000-1.030); UROBILINOGEN NEG (NEG)
[2017-05-04 11:51] LABS: MANUAL MICROSCOPIC REQUIRED? NO; REVIEW REQ? NO
[2017-05-04 13:07] LABS: BUN/CREATININE RATIO 17.6 (10-20); CALCIUM 9.3 mg/dl (8.5-10.1); CREATININE 1.08 mg/dl (0.60-1.40); POTASSIUM 3.7 mmol/L (3.5-5.1)
--- NOTE | 2017-05-19 16:33 | HISTORY & PHYSICAL EXAMINATION ---
DATE OF ADMISSION: 05/20/2017 CHIEF COMPLAINT: Osteoarthritis of the right knee. HISTORY OF PRESENT ILLNESS: Jona is a 61-year-old male who has been complaining of several year history of chronic right knee pain. X-rays show mild medial compartmental arthritis. I had given him several injections in his knees. We talked about arthroscopy to see we could hold off and replacement surgery, but given his level of pain at this point, he is fairly adamant that he just wants to have his knee replaced. He does have some medial-sided arthritis I thought that it was reasonable. He has elected to proceed with a total knee arthroplasty. PAST MEDICAL HISTORY: Significant for hypertension and gout. PAST SURGICAL HISTORY: Significant for rotator cuff repair, cholecystectomy, and kidney stones. ALLERGIES: None. MEDICATIONS: Metoprolol 50 mg twice a day, amlodipine 10 mg daily, allopurinol 300 mg daily, hydrochlorothiazide 50 mg daily, potassium 10 mEq daily, Naprosyn as needed for pain, and Zantac 150 mg as needed. FAMILY HISTORY: Significant for stroke. SOCIAL HISTORY: He is , has a girlfriend. He lives with his parents. He has 3 children and remains active. REVIEW OF SYSTEMS: He complains of right knee pain. All other pertinent review of systems are negative. PHYSICAL EXAMINATION: GENERAL: He is awake, alert and oriented x3. He is in no apparent distress. He is very pleasant. HEENT: Pupils equal, round and reactive to light. Extraocular motions intact. Oral mucosa is pink and moist. HEART: Regular rate per radial pulse. LUNGS: Shelby symmetrically bilaterally with no audible breath sounds. ABDOMEN: Soft, nontender, and nondistended. MUSCULOSKELETAL: On physical examination of the right knee, he has a slight varus deformity. He has motion from 0-125 degrees. He has no cruciate or collateral ligament instability. He has significant tenderness to palpation along the medial joint line and over the distal medial femoral condyle. He has minimal pain laterally. He has some pain in the patellofemoral joint. He has full internal and external rotation of his hip without pain. IMAGING DATA: X-rays of the right knee do show some joint space narrowing of the medial compartment. There is no osteophyte formation. IMPRESSION: Osteoarthritis of the right knee. PLAN: We will proceed with a Biomet Vanguard right total knee arthroplasty. Postoperatively, he will be started on aspirin for DVT prophylaxis and kept in the hospital for postoperative medical management. DERIK
[~2017-05-20] VITALS: Ht 162.6 cm; Wt 121.0 kg
[2017-05-20] VITALS (7 sets, daily range): BP systolic 99–177; BP diastolic 52–95; PULSE 56–66; TEMP 36.6–36.9; O2SAT 95–98; Ht 162.6 cm; Wt 121.0 kg
[~2017-05-20 09:37] MED LIST changes: +ACETAMINOPHEN 500 MG TAB PO SCH; +ATROPINE SULFATE 0.1 MG/ML 5ML SYR IV PRN; +BUPIVACAINE 0.25% 30 ML VIAL ONE; +BUPIVACAINE 0.5 % 5 MG/1 ML PF 10ML VIAL ONE; +CEFAZOLIN 2000MG IV PUSH 10 ML IV SCH; +CEFAZOLIN 3000MG IV PUSH 15 ML IV SCH; +EpHEDrine SULFATE INJ 50 MG/ML AMP IV PRN; +FAMOTIDINE 20 MG TAB PO SCH; +FENTANYL CITRATE INJ 50 MCG/1 ML 2 ML VIAL IV PRN; +GABAPENTIN 300 MG CAP PO SCH; +LACTATED RINGER'S 1000ML 1,000 ML IV SCH; +LACTATED RINGER'S 1000ML 500 ML IV ONE; +LACTATED RINGER'S 1000ML IV SCH; -METO-649 PO; +ONDANSETRON INJ 2 MG/ML 2 ML VIAL IV PRN; -PRD10 PO; -REGADENOSON 0.4 MG/5 ML SYR ONE; +ROPIVACAINE 5MG/ML 30 ML 150 MG, BUPIVACAINE 0.5% MPF INJ 30 ML, EpINEphrine HCL INJ 0.... INFIL SCH
[2017-05-20] MEDS ORDERED: MIDAZOLAM HCL 1 MG/ML 2ML VIAL ONE ×2 (12:22→13:40)
[2017-05-20] MEDS ORDERED: FENTANYL CITRATE INJ 50 MCG/1 ML 2 ML VIAL ONE (12:22)
--- NOTE | 2017-05-20 12:37 | History & Physical Bridge Note ---
H&P Re-Evaluation Bridge Note: I have examined the patient, reviewed the History & Physical and in the interval since the performance of the History & Physical I have noted the following changes of clinical significance: No changes noted
[2017-05-20] MEDS: TRANEXAMIC ACID INJ 1,000 MG in SYRINGE 0 ML IV SCH ×2 (12:46→18:19)
[2017-05-20] MEDS ORDERED: BACITRACIN 50000 UNIT VIAL ONE (12:48)
[2017-05-20] MEDS ORDERED: ORTHO JOINT ANESTHETIC ONE (12:48)
[2017-05-20] MEDS ORDERED: PROPOFOL IV EMULSION 10 MG/ML 20 ML VIAL IV ONE (13:41)
--- NOTE | 2017-05-20 14:41 | [facility] Post Operative Brief Note ---
Immediate Operative Summary Operative Date May 20, 2017. Pre-Operative Diagnosis Osteoarthritis of the right knee Post-Operative Diagnosis Osteoarthritis of the right knee Procedure(s) Performed Right Total Knee Arthroplasty Surgeon Dr. Gonzalez Wills [employer] Field Technician Surgeon(s) Pedro Rubalcava PA-C Estimated Blood Loss 20 ml Findings as above Specimens A. Right Knee Bone and Tissue Complication(s) None Disposition Recovery Room / PACU
[2017-05-20] MEDS ORDERED: RANITIDINE HCL 150 MG TAB PO PRN (14:45)
[2017-05-20] MEDS ORDERED: BISACODYL 10 MG SUPP PR PRN (14:45)
[2017-05-20] MEDS ORDERED: SOD PHOSPHATE/SOD BIPHOSPHATE ENEMA 132 ML BTL PR PRN (14:45)
[2017-05-20] MEDS ORDERED: MAGNESIUM HYDROXIDE SUSP 30 ML UDC PO PRN (14:45)
[2017-05-20] MEDS ORDERED: METOCLOPRAMIDE HCL INJ 5 MG/ML 2 ML VIAL IV PRN (14:45)
[2017-05-20] MEDS ORDERED: ONDANSETRON INJ 2 MG/ML 2 ML VIAL IV PRN (14:45)
--- NOTE | 2017-05-20 15:31 | DIAGNOSTIC IMAGING REPORT ---
R KNEE 1 OR 2 VIEWS ROUTINE CLINICAL HISTORY: AP/LATERAL IN PACU RIGHT KNEE postoperative COMPARISON: None. DISCUSSION: Anatomic alignment status post total right knee replacement. Good contact between prosthetic and underlying bone. Surgical drains are in position. Expected soft tissue postoperative change IMPRESSION: Anatomic alignment status post total right knee arthroplasty. The above report was generated using voice recognition software. It may contain grammatical, syntax or spelling errors. Electronically signed by: Kurt Garcia M.D. 05/20/2017 3:30 PM Dictated Date/Time: 05/20/2017 3:29 PM
--- NOTE | 2017-05-20 15:46 | Anesthesiology Progress Note ---
Anesthesia Post Op Note Date & Time May 20, 2017 at 15:46 Vital Signs Pain Intensity: 7 Vital Signs Past 12 Hours Date Time Temp Pulse Resp B/P (MAP) Pulse Ox O2 Delivery O2 Flow Rate FiO2 05/20/17 14:55 37.3 62 16 115/54 99 Oxymask 7 05/20/17 10:06 36.7 66 20 177/95 97 Room Air Notes Mental Status: alert / awake / arousable, participated in evaluation Pt Amnestic to Procedure: Yes Nausea / Vomiting: adequately controlled Pain: adequately controlled Airway Patency, RR, SpO2: stable & adequate BP & HR: stable & adequate Hydration State: stable & adequate Neuraxial Anesthesia: was administered, sensory block is resolving Anesthetic Complications: no major complications apparent
--- NOTE | 2017-05-20 17:00 | Discharge Instructions ---
Discharge Instructions Date of Service May 20, 2017. Admission Reason for Admission: Right Knee Degenerative Joint Disease Discharge Discharge Diagnosis / Problem: Right Total Knee Discharge Goals Goal(s): Decrease discomfort, Improve function Activity Recommendations Activity Limitations: as noted below . Instructions / Follow-Up Instructions / Follow-Up Activity and Therapy Recommendations: * If you are using [facility] then Physical Therapy will be provided until they feel you are ready to start Outpatient Physical Therapy. If you are not using a Home Health agency then Outpatient Physical Therapy should start about 3-5 days from your day of surgery. Therapy will last about 6-10 weeks * It is important not to put a pillow under your knee when you are relaxing or sleeping. It is just as important to make sure you are getting your knee perfectly straight as it is to regain your knee bend. * You were shown a series of exercises in the hospital. Do these exercises three times each day including the exercises you were shown in physical therapy. * Get up and walk several times each day. For the first four weeks, try not to stand or walk for more than one hour at a time. If you do stand or walk for more than one hour, you will not hurt anything, but your leg will likely swell. * As you feel comfortable, you may change from the walker or crutches to a cane and then to independent walking. Medications: * Narcotic You will likely be sent home from the hospital with a prescription for the narcotic pain medication that worked best throughout your stay. * Aspirin Most patients will be required to take Aspirin 325mg twice a day for 6 weeks after surgery. This is obtained [id number] and a prescription is not necessary. * Other medications may be prescribed for specific circumstances. If you have any questions, please call the office at . * Resume previous home medications unless otherwise instructed TEDs/Elastic Stockings: The white elastic stockings help limit swelling and prevent blood clots from forming in your legs.~ The more you wear them, the more they work. Wear them for six weeks. Showering: You may shower 5 days from the day of surgery. Let the soapy shower water run over the boris. Do not scrub or soak the incision. Things To Watch For: * Drainage from the incision site that occurs more than one week after your surgery. * Increased redness at the incision site. * Fever above 102 degrees Fahrenheit. * Unusual chest pain or shortness of breath. * Call [facility] at with any of the above problems Follow-Up Visit: Follow-up with Dr. Wills 2-3 weeks after your day of surgery. An appointment was probably scheduled when you signed-up for surgery in the office. If you have any questions call Office Instructions: More detailed instructions as well as Frequently Asked Questions were provided in a folder by our office when you signed-up for surgery. Please review these instructions when you get home. If you have any further questions or concerns, please feel free to call the office at [phone] Current Hospital Diet Patient's current hospital diet: Regular Diet Discharge Diet Recommended Diet: Regular Diet Procedures Procedures Performed: Right Total Knee Arthroplasty Pending Studies Studies pending at discharge: no Medical Emergencies . Who to Call and When: Medical Emergencies: If at any time you feel your situation is an emergency, please call [phone] immediately. . Non-Emergent Contact Non-Emergency issues call your: Surgeon Call Non-Emergent contact if: wound has increased drainage, wound has increased redness . "Provider Documentation" section prepared by Gonzalez Wills. . VTE Core Measure Inpt VTE Proph given/why not?: Other Anticoagulation (Aspirin 325 twice a day for 6 weeks)
--- NOTE | 2017-05-20 17:50 | OPERATIVE REPORT ---
DATE OF OPERATION: 05/20/2017 PREOPERATIVE DIAGNOSIS: Primary osteoarthritis of the right knee. POSTOPERATIVE DIAGNOSIS: Same. PROCEDURE: Right total knee arthroplasty. SURGEON: Gonzalez Wills DO. WORKFORCE CONSULTANT: Pedro Rubalcava PA-C, whose assistance was necessary for positioning of the leg, helping with retraction and closure. ANESTHESIA: Spinal. COMPLICATIONS: None. CONDITION: Stable to PACU. IMPLANTS USED: I used a Biomet Vanguard right total knee arthroplasty with a size 65 right femur, a size 67 tibia, size 28 x 8 mm patella and a size 10 posterior stabilized polyethylene bearing. All complements were cemented with Palacos-G cement. INDICATIONS: Jona is a pleasant 61-year-old male who presented to my office with chronic right knee pain. X-rays did not look too bad. We talked about MRI and arthroscopy, but he was open for more permanent fix. He did have some joint space narrowing on the x-rays and he wanted to proceed with a knee replacement surgery. OPERATION AND FINDINGS: On 05/20/2017, he arrived at [facility] for the above procedure. He was seen in the preoperative holding area and the operative extremity was identified and signed. He was given preoperative antibiotics, a spinal anesthetic and a right adductor nerve block. He was then taken back to the operating room, laid on the table in supine position and put under basic sedation. The right knee was then prepped and draped in sterile fashion. Time-out was done and the patient and operative extremity was properly identified. A midline incision was made directly over the patella. Dissection was taken down to the extensor mechanism and a medial parapatellar approach was used. The fat pad was left in place. The medial retinaculum was released off the proximal tibia. The knee was then flexed. There was rather significant grade 3 and grade 4 chondral changes of the distal femur and the tibial plateau. The arthritis was much worse than the x-rays were showing. A drill was sent down the center of the femoral canal, followed by an intramedullary jackson. Off that jackson, a distal femoral cutting guide was placed and 12 mm was resected off the distal femur at 5 degrees of valgus. A posterior referencing guide was used and the femur measured to be a size 65. Two drill holes were placed in 3 degrees of external rotation. A 3-in-1 cutting block was then impacted into place. Anterior, posterior and chamfer cuts were then made. A box cutting guide was then impacted into place and the box was resected for the posterior stabilizing component. The proximal tibia was then exposed. A drill was sent down the center of the tibial canal followed by an intramedullary jackson. Off that jackson, a proximal tibial resection guide was placed and 2 mm was resected off the low medial side. The tibia measured to be a size 67 and it was set in appropriate rotation, drilled and then punched. Trial components were then placed. The knee was brought through a full range of motion and felt to be stable. The patella was then everted and 8 mm was resected off the posterior aspect of the patella. The patella measured to be a size 28 and 3 peg holes were drilled. A trial patella was used. The knee was brought through a full range of motion and felt to be stable. Trial components were then removed and final components were all cemented in place with Palacos-G cement. A size 10 posterior stabilized polyethylene bearing was then snapped into place and the anterior bar was locked. The surrounding soft tissues were then injected with 100 mL of an orthopedic pain control cocktail. The entire knee was then irrigated with 3 liters of normal saline solution with bacitracin. Two drains were placed. The extensor mechanism was closed with #2 FiberWire suture in the superior medial aspect and #1 Vicryl, both proximally and distally. The skin was closed with 2-0 Vicryl, 3-0 V-Loc suture and boris. He was then placed in a soft compressive dressing and taken to the postanesthesia care unit in stable condition. He tolerated the procedure well. I attest to the content of the Intraoperative Record and any orders documented therein. Any exception s are noted below.
[2017-05-20] MEDS: SODIUM CHLORIDE 0.9% 1000ML 1,000 ML IV SCH (18:18)
[2017-05-20] MEDS: KETOROLAC TROMETHAMINE 30 MG/ML VIAL IV. SCH (18:22)
[2017-05-20] MEDS: SENNA 8.6 MG TAB PO SCH (21:32)
[2017-05-20] MEDS: ASPIRIN 325 MG ECTAB PO SCH (21:33)
[2017-05-20] MEDS: DOCUSATE SODIUM 100 MG CAP PO SCH (21:33)
[2017-05-20] MEDS: ALLOPURINOL 100 MG TAB PO SCH (21:34)
[2017-05-20] MEDS: OXYCODONE HCL IR 5 MG TAB (IMMEDIATE RELEASE) PO PRN (21:35)
[2017-05-20] MEDS: ACETAMINOPHEN 500 MG TAB PO SCH (21:38)
[2017-05-20] MEDS ORDERED: CEFAZOLIN IV 2,000 MG in SYRINGE 0 ML IV SCH (22:00)
[2017-05-21] MEDS: KETOROLAC TROMETHAMINE 30 MG/ML VIAL IV. SCH ×5 (00:07→23:42)
[2017-05-21] MEDS: MoRPHine SULFATE 2 MG/ML CARP IV PRN ×3 (00:17→23:42)
[2017-05-21] MEDS: SODIUM CHLORIDE 0.9% 1000ML 1,000 ML IV SCH ×2 (03:42→12:21)
[2017-05-21 03:45] VITALS: BP 129/79; PULSE 60; TEMP 36.5; O2SAT 95
[2017-05-21] MEDS: ACETAMINOPHEN 500 MG TAB PO SCH ×3 (05:46→21:47)
[2017-05-21 06:05] LABS: HEMATOCRIT 40.9 % (42-52); MEAN CELL VOLUME 96.7 fL (80-100); MEAN CORPUSCULAR HEMOGLOBIN 33.1 pg (25-34); MEAN CORPUSCULAR HGB CONC 34.2 g/dl (32-36); MEAN PLATELET VOLUME 8.9 fL (7.4-10.4); PLATELET COUNT 177 K/uL (130-400); RED BLOOD COUNT 4.23 M/uL (4.7-6.1); WHITE BLOOD COUNT 16.64 K/uL (4.8-10.8)
[2017-05-21] MEDS ORDERED: ZOLPIDEM TARTRATE 10 MG TAB PO PRN (06:45)
[2017-05-21 06:46] LABS: BLOOD UREA NITROGEN 20 mg/dl (7-18); BUN/CREATININE RATIO 16.9 (10-20); CALCIUM 8.6 mg/dl (8.5-10.1); CARBON DIOXIDE 29 mmol/L (21-32); CHLORIDE 106 mmol/L (98-107); CREATININE 1.18 mg/dl (0.60-1.40); GLUCOSE 114 mg/dl (70-99); SODIUM 140 mmol/L (136-145)
--- NOTE | 2017-05-21 07:05 | PROGRESS NOTE ---
DATE: 05/21/2017 CHIEF COMPLAINT: Status post right total knee arthroplasty postop day #1. PROGRESS: Jona was seen and examined at bedside today. Overall, he is doing fairly well. He does not have too much pain in the right knee. He has been up to use the bathroom. He was not able to get any sleep last night. PHYSICAL EXAMINATION: RIGHT KNEE: The dressing is clean and dry and the drain is to suction. He is lying with his knee in full extension. He has active dorsiflexion and plantarflexion of his right ankle and sensation is intact throughout. LABORATORY DATA: He has an H&H today of 14.0 and 40.9. His chemistry is still pending. His vital signs are all stable on room air. He is voiding on his own and his Hemovac put out 50 mL. X-rays postoperatively of the right knee show the prosthesis to be in anatomic alignment without any evidence of fracture, dislocation or loosening. IMPRESSION: Status post right total knee arthroplasty postop day #1. PLAN: At this point, he is doing well. He will be on aspirin 325 mg twice a day for DVT prophylaxis. Therapy will see him today and get him up and have him walking around. Tomorrow, the nursing staff can change the dressing and pull the drain and will likely discharge him to home.
[2017-05-21 07:25] VITALS: BP 118/73; PULSE 56; TEMP 36.5; O2SAT 96
[2017-05-21] MEDS: OXYCODONE HCL IR 5 MG TAB (IMMEDIATE RELEASE) PO PRN ×4 (08:26→20:37)
[2017-05-21] MEDS: DOCUSATE SODIUM 100 MG CAP PO SCH ×2 (08:27→20:37)
[2017-05-21] MEDS: ASPIRIN 325 MG ECTAB PO SCH ×2 (08:27→20:38)
[2017-05-21] MEDS: HYDROCHLOROTHIAZIDE 50 MG TAB PO SCH (08:27)
[2017-05-21] MEDS: MULTIVITAMIN TAB PO SCH (08:28)
[2017-05-21] MEDS: POTASSIUM CHLORIDE 10 MEQ TABCR PO SCH (08:28)
[2017-05-21] MEDS: METOPROLOL SUCC 50MG EXT REL TAB PO SCH (08:28)
[2017-05-21] MEDS: DILTIAZEM HCL 240 MG CAPCR PO SCH (08:29)
[2017-05-21 12:08] VITALS: BP 115/73; PULSE 74; TEMP 36.6; O2SAT 97
[2017-05-21 15:06] VITALS: O2SAT 0
[2017-05-21 15:10] VITALS: BP 108/64; PULSE 61; TEMP 36.8; O2SAT 96
[2017-05-21] MEDS: SENNA 8.6 MG TAB PO SCH (20:37)
[2017-05-21] MEDS: ALLOPURINOL 100 MG TAB PO SCH (21:45)
[2017-05-21 23:05] VITALS: BP 103/62; PULSE 74; TEMP 36.9; O2SAT 96
[2017-05-22] MEDS: OXYCODONE HCL IR 5 MG TAB (IMMEDIATE RELEASE) PO PRN ×3 (04:20→11:16)
[2017-05-22] MEDS: ACETAMINOPHEN 500 MG TAB PO SCH (05:47)
[2017-05-22] MEDS: KETOROLAC TROMETHAMINE 30 MG/ML VIAL IV. SCH (05:48)
[2017-05-22] MEDS: DILTIAZEM HCL 240 MG CAPCR PO SCH (09:15)
[2017-05-22] MEDS: HYDROCHLOROTHIAZIDE 50 MG TAB PO SCH (09:16)
[2017-05-22] MEDS: MULTIVITAMIN TAB PO SCH (09:16)
[2017-05-22] MEDS: POTASSIUM CHLORIDE 10 MEQ TABCR PO SCH (09:16)
[2017-05-22] MEDS: DOCUSATE SODIUM 100 MG CAP PO SCH (09:16)
[2017-05-22] MEDS: METOPROLOL SUCC 50MG EXT REL TAB PO SCH (09:17)
[2017-05-22] MEDS ORDERED: RXC5 PO (09:19)
[2017-05-22] MEDS ORDERED: ASPEC325 PO (09:19)
--- NOTE | 2017-05-22 09:39 | PROGRESS NOTE ---
DATE: 05/22/2017 CHIEF COMPLAINT: Status post right total knee arthroplasty postop day #2. PROGRESS: Jona was seen and examined at bedside today. He had a lot of pain in his knee yesterday but feels much better today. He was able to ambulate well yesterday with physical therapy. At this point, his pain is controlled and he has no other complaints. PHYSICAL EXAMINATION: RIGHT KNEE: The dressing has been changed and the drain has been pulled. He is sitting with his knee flexed almost to 90 degrees. He has active dorsiflexion and plantarflexion of his right ankle. IMPRESSION: Status post right total knee arthroplasty postop day #2. PLAN: At this point, he is doing well and happy with his progress. He is on aspirin for DVT prophylaxis. We will keep him on oxycodone for pain control. He will be seen by physical therapy again this morning and then he can be discharged to home later today.
--- NOTE | 2017-05-22 09:45 | DISCHARGE SUMMARY ---
DISCHARGE DIAGNOSIS: Primary osteoarthritis of the right knee. PROCEDURE: Right total knee arthroplasty on 05/20/[address] Gonzalez Wills. DISCHARGE INSTRUCTIONS: 1. Aspirin 325 mg twice a day for 6 weeks. 2. Oxycodone 5-10 mg every 4 hours as needed for pain. 3. Allopurinol 300 mg daily. 4. Diltiazem 240 mg daily. 5. Hydrochlorothiazide 50 mg daily. 6. Toprol 200 mg daily. 7. Potassium 10 mEq daily. 8. Zantac 150 mg daily. 9. Flomax 0.4 mg as needed. 10. KEYANNA hose stockings for 6 weeks. 11. Follow up with Dr. Wills in 2 weeks. 12. Call the office of Dr. Wills with any questions or concerns. HOSPITAL COURSE: Jona is a 61-year-old male who presented to my office with chronic right knee pain. X-rays and clinical examination were diagnostic for primary osteoarthritis of the right knee. After failing conservative treatment, he elected to undergo a right total knee arthroplasty. On 05/20/2017, he arrived at [facility] and underwent a right knee replacement without complication. He had a spinal anesthetic and a right adductor nerve block. Postoperatively, he was started on aspirin 325 mg twice a day and discharged to general orthopedic floors. His hospital course was uneventful. On postop day #1, his H&H was stable at 14.0 and 40.9. He was able to ambulate well with physical therapy. He was having a lot of pain, but it was controlled with the oxycodone. On postop day #2, the dressing was changed, the drain was pulled, his knee was feeling better. He was seen once again by physical therapy and then subsequently discharged to home with oral pain medications and the above instructions.
[2017-05-22 09:49] VITALS: BP 103/62; PULSE 74; TEMP 36.9; O2SAT 96
[2017-05-22] MEDS: ASPIRIN 325 MG ECTAB PO SCH (11:15)
== END 2017-05-22 12:06 | disposition home health service (06) | DRG 470 ==
LOC: C.ACU 09:37 → C.3E 10:00 → ENRESERV 15:23
PROVIDERS: ADMIT Orthopaedic Surgery; ATTEND Orthopaedic Surgery
PROC: 0SRC0J9 Replacement of Right Knee Joint with Synthetic Substitute, Cemented, Open Approach (ICD-10-PCS; principal; 2017-05-20 12:20)
DX: M17.11 Unilateral primary osteoarthritis, right knee (principal); Z68.42 Body mass index [BMI] 45.0-49.9, adult; I10 Essential (primary) hypertension; M10.9 Gout, unspecified; K21.9 Gastro-esophageal reflux disease without esophagitis; N40.0 Benign prostatic hyperplasia without lower urinary tract symptoms; E66.01 Morbid (severe) obesity due to excess calories; Z87.442 Personal history of urinary calculi; Z79.899 Other long term (current) drug therapy; Z82.3 Family history of stroke

== ENCOUNTER → 2017-07-26 | Outpatient (CLI) | payer BC ==
[~2017-07-26] MED LIST changes: -ACETAMINOPHEN 500 MG TAB PO SCH; +ASPEC325 PO; -ATROPINE SULFATE 0.1 MG/ML 5ML SYR IV PRN; -BUPIVACAINE 0.25% 30 ML VIAL ONE; -BUPIVACAINE 0.5 % 5 MG/1 ML PF 10ML VIAL ONE; -CEFAZOLIN 2000MG IV PUSH 10 ML IV SCH; -CEFAZOLIN 3000MG IV PUSH 15 ML IV SCH; -CRDCD240 PO; +DILT-204 PO; -EpHEDrine SULFATE INJ 50 MG/ML AMP IV PRN; -FAMOTIDINE 20 MG TAB PO SCH; -FENTANYL CITRATE INJ 50 MCG/1 ML 2 ML VIAL IV PRN; -GABAPENTIN 300 MG CAP PO SCH; -HYDR-3419 PO; -LACTATED RINGER'S 1000ML 1,000 ML IV SCH; -LACTATED RINGER'S 1000ML 500 ML IV ONE; -LACTATED RINGER'S 1000ML IV SCH; -ONDANSETRON INJ 2 MG/ML 2 ML VIAL IV PRN; +RANI150T85 PO; -ROPIVACAINE 5MG/ML 30 ML 150 MG, BUPIVACAINE 0.5% MPF INJ 30 ML, EpINEphrine HCL INJ 0.... INFIL SCH; +RXC5 PO; -ZNTT/150 PO
[2017-07-26 13:25] LABS: BASO % 0.5 %; BASO ABS # 0.04 K/uL (0-0.2); EOS % 4.4 %; EOS ABS # 0.35 K/uL (0-0.5); HEMATOCRIT 47.1 % (42-52); HEMOGLOBIN 16.3 g/dL (14.0-18.0); IG# 0.03 K/uL (0.00-0.02); LYMPH % 17.4 %; LYMPH ABS # 1.39 K/uL (1.2-3.4); MEAN CELL VOLUME 94.8 fL (80-100); MEAN CORPUSCULAR HEMOGLOBIN 32.8 pg (25-34); MEAN CORPUSCULAR HGB CONC 34.6 g/dl (32-36); MEAN PLATELET VOLUME 9.1 fL (7.4-10.4); MONO % 11.9 %; MONO ABS # 0.95 K/uL (0.11-0.59); NEUT % 65.4 %; NEUT ABS # 5.22 K/uL (1.4-6.5); PLATELET COUNT 234 K/uL (130-400); RED CELL DISTRIBUTION WIDTH CV 13.5 % (11.5-14.5); RED CELL DISTRIBUTION WIDTH SD 46.5 fL (36.4-46.3); WHITE BLOOD COUNT 7.98 K/uL (4.8-10.8)
[2017-07-26 14:04] LABS: ALBUMIN 3.8 gm/dl (3.4-5.0); ALT/SGPT 65 U/L (12-78); AST/SGOT 29 U/L (15-37); BLOOD UREA NITROGEN 17 mg/dl (7-18); CALCIUM 9.8 mg/dl (8.5-10.1); CARBON DIOXIDE 29 mmol/L (21-32); CHOLESTEROL 180 mg/dl (0-200); CREATININE 1.27 mg/dl (0.60-1.40); GLUCOSE 144 mg/dl (70-99); SODIUM 137 mmol/L (136-145); TOTAL PROTEIN 8.2 gm/dl (6.4-8.2)
[2017-07-26 14:14] LABS: HEMOGLOBIN A1C 5.7 % (4.5-5.6)
[2017-07-26 14:27] LABS: ALKALINE PHOSPHATASE 97 U/L (45-117); LDL CHOLESTEROL CALCULATED 84 mg/dl
== END | disposition home or self-care (01) ==
LOC: C.LABPBG 10:12
PROVIDERS: ATTEND Internal Medicine
DX: E78.5 Hyperlipidemia, unspecified (principal); R73.01 Impaired fasting glucose; Z86.79 Personal history of other diseases of the circulatory system; L05.91 Pilonidal cyst without abscess; I48.91 Unspecified atrial fibrillation; I10 Essential (primary) hypertension

== ENCOUNTER → 2018-01-04 | Outpatient (CLI) | payer BC ==
[~2018-01-04] MED LIST changes: -NAPR-1169 PO; +NAPR-22 PO; +POTA-639 PO; -POTA20TA16 PO
--- NOTE | 2018-01-04 14:02 | DIAGNOSTIC IMAGING REPORT ---
KUB CLINICAL HISTORY: N20.0 [id number] COMPARISON STUDY: 08/23/2016 FINDINGS: There are at least 7 right renal calculi and 3 left renal calculi. The largest calculus in the right measures 9 mm. The largest calculus in the left measures 8 mm. No ureteral calculi are visualized on conventional radiographic imaging. There is no pathologic bowel dilatation. There are surgical clips in the right upper quadrant consistent with a prior cholecystectomy. IMPRESSION: Bilateral nephrolithiasis. Electronically signed by: Surindre Solo M.D. 01/04/2018 2:01 PM Dictated Date/Time: 01/04/2018 2:00 PM
== END | disposition home or self-care (01) ==
LOC: C.RAD 13:31
PROVIDERS: ATTEND Urology
DX: N20.0 Calculus of kidney (principal)

== ENCOUNTER → 2018-01-11 | Outpatient (CLI) | payer BC ==
[~2018-01-11] MED LIST changes: +CIPR1TAB10 PO; +OXYC7.5T65 PO
--- NOTE | 2018-01-11 18:06 | DIAGNOSTIC IMAGING REPORT ---
CHEST 2 VIEWS ROUTINE CLINICAL HISTORY: KIDNEY STONE PREOPERATIVE CHEST COMPARISON STUDY: 08/25/2016 FINDINGS: The cardiac and mediastinal contours are normal. There is no evidence of focal pulmonary consolidation. There is no evidence of failure. No pleural effusions are visualized.[ IMPRESSION: No active disease in the chest. Electronically signed by: Surinder Solo M.D. 01/11/2018 6:05 PM Dictated Date/Time: 01/11/2018 6:04 PM
[2018-01-11 18:14] LABS: BASO % 0.4 %; BASO ABS # 0.04 K/uL (0-0.2); EOS % 2.7 %; EOS ABS # 0.29 K/uL (0-0.5); HEMATOCRIT 46.1 % (42-52); HEMOGLOBIN 16.3 g/dL (14.0-18.0); IG# 0.04 K/uL (0.00-0.02); LYMPH % 17.1 %; LYMPH ABS # 1.82 K/uL (1.2-3.4); MEAN CELL VOLUME 94.5 fL (80-100); MEAN CORPUSCULAR HEMOGLOBIN 33.4 pg (25-34); MEAN CORPUSCULAR HGB CONC 35.4 g/dl (32-36); MEAN PLATELET VOLUME 9.1 fL (7.4-10.4); MONO % 10.8 %; MONO ABS # 1.15 K/uL (0.11-0.59); NEUT % 68.6 %; NEUT ABS # 7.28 K/uL (1.4-6.5); PLATELET COUNT 233 K/uL (130-400); RED CELL DISTRIBUTION WIDTH CV 13.5 % (11.5-14.5); RED CELL DISTRIBUTION WIDTH SD 46.3 fL (36.4-46.3); WHITE BLOOD COUNT 10.62 K/uL (4.8-10.8)
[2018-01-11 18:33] LABS: BLOOD UREA NITROGEN 24 mg/dl (7-18); CARBON DIOXIDE 25 mmol/L (21-32); POTASSIUM 3.4 mmol/L (3.5-5.1); SODIUM 137 mmol/L (136-145)
== END | disposition home or self-care (01) ==
LOC: C.RAD 17:28
PROVIDERS: ATTEND Urology
DX: N20.0 Calculus of kidney (principal)

== ENCOUNTER → 2018-01-20 | Day surgery (SDC) | payer BC ==
[2018-01-16 16:23] VITALS: Ht 162.6 cm; Wt 120.5 kg
[~2018-01-20] VITALS: Ht 162.6 cm; Wt 120.5 kg
[~2018-01-20] MED LIST changes: +ATROPINE SULFATE 0.1 MG/ML 5ML SYR IV PRN; +CIPROFLOXACIN 400MG / D5W IV SCH; +EpHEDrine SULFATE INJ 50 MG/ML AMP IV PRN; +FENTANYL CITRATE INJ 50 MCG/1 ML 2 ML VIAL ONE; +LACTATED RINGER'S 1000ML 1,000 ML IV SCH; +LIDOCAINE HCL 2% 2 ML VIAL (20MG/ML) ONE; +MIDAZOLAM HCL 1 MG/ML 2ML VIAL ONE; +ONDANSETRON INJ 2 MG/ML 2 ML VIAL IV PRN; +ONDANSETRON INJ 2 MG/ML 2 ML VIAL ONE; +OXYCODONE/ACETAMINOPHEN 5-325 TAB PO PRN; +PROPOFOL IV EMULSION 10 MG/ML 20 ML VIAL ONE; +SCOPOLAMINE 1.5 MG TDSY TD ONE; +SUCCINYLCHOLINE CHLORIDE 20 MG/ML 10 ML VIAL IV ONE
--- NOTE | 2018-01-20 11:09 | Discharge Instructions ---
Discharge Instructions Date of Service Jan 20, 2018. Admission Reason for Admission: Kidney Stone Discharge Discharge Diagnosis / Problem: Right Stones Discharge Goals Goal(s): Decrease discomfort, Improve function Activity Recommendations Activity Limitations: resume your previous activity Lifting Limitations: gradually increase as tolerated Exercise/Sports Limitations: gradually increase as tolerated . Instructions / Follow-Up Instructions / Follow-Up May have blood in urine. May have pelvic discomfort. Call if any issues or fevers Current Hospital Diet Patient's current hospital diet: Discharge Diet Recommended Diet: Regular Diet Procedures Procedures Performed: Right ESWL Pending Studies Studies pending at discharge: no Laboratory Results Hemoglobin A1c Test 11/23/17 09:39 Range/Units Estimated Average Glucose 131 mg/dl Hemoglobin A1c 6.2 H 4.5-5.6 % Lipid Panel Test 11/23/17 09:39 Range/Units Triglycerides Level 205 H 0-150 mg/dl Cholesterol Level 168 0-200 mg/dl HDL Cholesterol 27 mg/dl Cholesterol/HDL Ratio 6.2 LDL Cholesterol, Calculated 100 mg/dl Medical Emergencies . Who to Call and When: Medical Emergencies: If at any time you feel your situation is an emergency, please call 911 immediately. . Non-Emergent Contact Non-Emergency issues call your: Primary Care Provider, Urologist Call Non-Emergent contact if: you have a fever, temperature is above 101, temperature is above 101.5, your pain is not controlled, your pain is worsening , your pain is unusual for you . . "Provider Documentation" section prepared by Tay Bedoya. .
--- NOTE | 2018-01-20 11:16 | DIAGNOSTIC IMAGING REPORT ---
KUB CLINICAL HISTORY: Kidney stone/Pre-op KUB COMPARISON STUDY: KUB 01/04/2018. FINDINGS: Multiple bilateral renal calculi are again noted. The small stones within the lower pole the left kidney is no longer visualized. However, this could be obscured by overlying bowel gas. Dominant stone within the left kidney measures 8 mm. No definite ureteral calculi. No bladder calculi. Cholecystectomy. The bowel gas pattern is unremarkable. IMPRESSION: Bilateral nephrolithiasis. The left renal calculi may have decreased in number. No ureteral calculi. Electronically signed by: Dennis Guevraa M.D. 01/20/2018 11:15 AM Dictated Date/Time: 01/20/2018 11:13 AM
--- NOTE | 2018-01-20 13:29 | [facility] Operative Report ---
Operative Report Operative Date Jan 20, 2018. Pre-Operative Diagnosis Right Renal Stones Post-Operative Diagnosis Same Procedure(s) Performed Right ESWL Surgeon Aureliano Estimated Blood Loss Minimal Findings Right Stone Specimens None Drains None Anesthesia Type General Complication(s) none Disposition Recovery Room / PACU Indications Multiple right stones. Risks and benefits discussed. Description of Procedure Patient was consented and brought back to the operating room. Patient was placed under anesthesia in the supine position. Patient was prepped and draped in the regular sterile fashion. A time out was completed. With the time out completed, The patient was assessed with fluoroscopy. The stone was identified and position was triangulated. At this point, the shock waves commenced. The stone was monitored throughout the process with fluoroscopy to assess progression and maintain position. Please see the [place] Kidney Stone Management Sheet for full report and detailed summary of procedure. With the stone treated, the procedure ended. The patient was cleaned, aroused from anesthesia, and transferred to the pacu in stable condition having tolerated the procedure well with no complications. I was present and participated in all aspects of the procedure. The patient will be monitored in the PACU until transferred. I attest to the content of the Intraoperative Record and any orders documented therein. Any exceptions are noted below.
[2018-01-20 14:18] VITALS: TEMP 36.4
--- NOTE | 2018-01-20 14:24 | Anesthesia Progress Nt - [facility] ---
Anesthesia Post Op Note Date & Time Jan 20, 2018 at 14:24 Vital Signs Pain Intensity: 0 Vital Signs Past 12 Hours Date Time Temp Pulse Resp B/P (MAP) Pulse Ox O2 Delivery O2 Flow Rate FiO2 01/20/18 14:18 36.4 66 16 131/83 (99) 94 Room Air 01/20/18 14:09 36.4 01/20/18 14:06 133/82 01/20/18 14:04 70 7 01/20/18 14:04 66 7 91 01/20/18 14:00 144/89 01/20/18 13:59 76 14 95 01/20/18 13:59 78 14 01/20/18 13:55 140/95 01/20/18 13:55 Room Air 01/20/18 13:54 69 13 98 01/20/18 13:54 68 13 01/20/18 13:51 137/92 01/20/18 13:49 72 18 97 01/20/18 13:49 70 18 01/20/18 13:45 145/83 01/20/18 13:44 67 7 01/20/18 13:44 67 7 98 01/20/18 13:41 121/76 01/20/18 13:39 68 23 01/20/18 13:39 69 23 98 01/20/18 13:36 156/94 01/20/18 13:34 36 67 16 156/94 96 Diffusion Mask 5 01/20/18 10:59 36.7 79 18 123/83 (96) 95 Room Air Notes Mental Status: alert / awake / arousable, participated in evaluation Pt Amnestic to Procedure: Yes Nausea / Vomiting: adequately controlled Pain: adequately controlled Airway Patency, RR, SpO2: stable & adequate BP & HR: stable & adequate Hydration State: stable & adequate Anesthetic Complications: no major complications apparent
[2018-01-20 14:34] VITALS: BP 136/90; PULSE 73; O2SAT 97
== END | disposition home or self-care (01) ==
LOC: X.SURG 10:08
PROVIDERS: ATTEND Urology
DX: N20.0 Calculus of kidney (principal); I10 Essential (primary) hypertension; I48.91 Unspecified atrial fibrillation; Z68.42 Body mass index [BMI] 45.0-49.9, adult; E78.5 Hyperlipidemia, unspecified; Z87.891 Personal history of nicotine dependence; M10.9 Gout, unspecified; N40.0 Benign prostatic hyperplasia without lower urinary tract symptoms; K21.9 Gastro-esophageal reflux disease without esophagitis

== ENCOUNTER → 2018-01-31 | Outpatient (CLI) | payer BC ==
[~2018-01-31] MED LIST changes: -ATROPINE SULFATE 0.1 MG/ML 5ML SYR IV PRN; -CIPROFLOXACIN 400MG / D5W IV SCH; -EpHEDrine SULFATE INJ 50 MG/ML AMP IV PRN; -FENTANYL CITRATE INJ 50 MCG/1 ML 2 ML VIAL ONE; -LACTATED RINGER'S 1000ML 1,000 ML IV SCH; -LIDOCAINE HCL 2% 2 ML VIAL (20MG/ML) ONE; -MIDAZOLAM HCL 1 MG/ML 2ML VIAL ONE; -ONDANSETRON INJ 2 MG/ML 2 ML VIAL IV PRN; -ONDANSETRON INJ 2 MG/ML 2 ML VIAL ONE; -OXYCODONE/ACETAMINOPHEN 5-325 TAB PO PRN; -PROPOFOL IV EMULSION 10 MG/ML 20 ML VIAL ONE; -SCOPOLAMINE 1.5 MG TDSY TD ONE; -SUCCINYLCHOLINE CHLORIDE 20 MG/ML 10 ML VIAL IV ONE
--- NOTE | 2018-01-31 16:52 | DIAGNOSTIC IMAGING REPORT ---
KUB CLINICAL HISTORY: Nephrolithiasis. FINDINGS: 2 AP supine abdominal radiographs are compared to study dated 01/04/2018 and correlated with abdominal CT dated 10/15/2016. There is a nonobstructed abdominal bowel gas pattern. Cholecystectomy clips are identified in the right upper quadrant. There are numerous (at least 10) nonobstructing right renal calculi. The largest stone in the right lower pole appears to have been fragmented. The largest fragment measures up to 5 mm. There are also numerous nonobstructing calculi projecting over the left kidney measuring up to 10 mm. There is no radiographic evidence of ureteral stone. Phlebolith are observed in the pelvis. The bony structures appear intact. IMPRESSION: 1. Bilateral nephrolithiasis as above. 2. The largest stone in the right lower pole appears to have been fragmented as compared to previous. Clinical correlation be required. 3. There is no radiographic evidence of ureteral stone. Electronically signed by: Dimitris Collins M.D. 01/31/2018 4:51 PM Dictated Date/Time: 01/31/2018 4:49 PM
== END | disposition home or self-care (01) ==
LOC: C.RAD 15:40
PROVIDERS: ATTEND Urology
DX: N20.0 Calculus of kidney (principal)

== ENCOUNTER → 2018-02-01 | Outpatient (CLI) | payer BC | END | disposition home or self-care (01) | LOC: C.LABSPEC 17:31 | PROVIDERS: ATTEND Urology | DX: N20.0 Calculus of kidney (principal) ==

== ENCOUNTER 2020-10-14 14:45 | Inpatient (IN) ==
[2020-10-14] MEDS ORDERED: dilTIAZem HCl 5 MG/ML 5 ML VIAL IV ONE (14:59)
[2020-10-14] MEDS ORDERED: STAT IV Infusion **Titration per Protocol STA (15:04)
[2020-10-14] MEDS ORDERED: dilTIAZem HCl 5 MG/ML 5 ML VIAL IV STA (15:04)
[2020-10-14] MEDS ORDERED: SODIUM CHLORIDE 0.9% 1000ML 1,000 ML IV ONE ×2 (15:05→21:35)
--- NOTE | 2020-10-14 15:14 | Emergency Department Note ---
Impression & Plan Atrial fibrillation with rapid ventricular response, Pneumonia, SOB (shortness of breath), COVID-19 ED Provider Note NAME: RIP OSHEA AGE: 64 SEX: M : 1955 ARRIVES VIA: Walk-In INFORMANT: [Patient] ED PROVIDER(S): [Dimitris Simon MD] CHIEF COMPLAINT: Shortness of breath HISTORY OF PRESENT ILLNESS: The patient is a 64-year-old male who presents with shortness of breath and palpitations. The patient states that he felt flulike symptoms starting on Tuesday, he has felt unwell now for 4 days. He has had chills, fevers, body aches. The patient tested positive for Covid yesterday through [facility]. Yesterday evening and today, his heart has been racing in the 160s. He had some tightness across the chest and has felt at times short of breath. He has had some sweating and nausea. He has not vomited. He has had diarrhea now for 3 days. The patient states that when he takes something in orally, it comes right out the bottom as diarrhea. The patient has had no known Covid contacts. He has not been vaccinated. He does have a history of A. fib and states he has a history of a left bundle branch block. REVIEW OF SYSTEMS: See HPI for pertinent positives and negatives. A total of ten systems were reviewed and were otherwise negative. PMHx/PSHx: See Below SOCIAL HISTORY: See Below. PHYSICAL EXAM: GENERAL: Patient is in no acute distress. HEENT: No acute trauma, normocephalic atraumatic, mucous membranes moist, no nasal congestion, no scleral icterus. NECK: No stridor, no adenopathy, no meningismus, trachea is midline. LUNGS: Clear to auscultation bilaterally, no wheeze, no rhonchi, breath sounds equal. HEART: Quite tachycardic, the rhythm seems regular to me, no murmurs heard. ABDOMEN: Soft, nontender, bowel sounds positive, no hernias, no peritonitis. EXTREMITIES: No cyanosis, trace bilateral pedal edema, full range of motion of all the joints without pain or difficulty, no signs for acute trauma. NEUROLOGIC: Oriented x 3, no acute motor or sensory deficits, no focal weakness. SKIN: No rash, no jaundice, no diaphoresis. DIFFERENTIAL DIAGNOSIS: Reactive airway disease, pneumonia, pneumothorax, COPD, CHF, COVID-19, A. fib, SVT, V. tach, dehydration, infection, cardiac ischemia, pulmonary embolism, bronchitis, musculoskeletal, gastrointestinal, as well as other pathologies. EMERGENCY DEPARTMENT COURSE/PROCEDURES: ECG: Indication was shortness of breath and palpitations. The ECG shows a wide-complex tachycardia with a rate of 172. The QTc is 507. The ECG certainly could be consistent with a rapid A. fib or possibly even a SVT. I doubt ventricular tachycardia. There are no PVCs. Compared to an ECG from 17 May 2018, significant changes have occurred. The left bundle branch block was present before. Continuous Cardiac Monitoring: An order was placed for continuous cardiac monitoring. The monitor shows a rate of 165 with a wide-complex tachycardia. Critical Care Note: I have personally spent 56 minutes of critical care time in the direct management of this patient. This includes bedside care, interpretation of diagnostic studies, and testing, discussion with consultants, patient, and family members, and other required patient management activities. This 56 minutes is in excess of all separately billable procedures. MEDICAL DECISION MAKING: There is no leukocytosis. The patient's hemoglobin is somewhat elevated, he has had a higher hemoglobin value in the past. There is a normal platelet count. No coagulopathy. Renal panel testing does not show kidney failure, potassium was slightly low. There was an elevation to the creatinine consistent with dehydration/renal insufficiency. Lactic acid was elevated at 2.8, consistent with dehydration and possibly infection. There was some subtle elevation to the liver enzymes. Patient's TSH was elevated however, the T4 was normal. Urinalysis did not show infection. Covid testing returned positive. Influenza testing returned negative. Chest film does suggest a bilateral viral pneumonia. ECG showed a wide-complex tachycardia consistent with a rapid A. fib. Cardiac enzyme testing x1 was not consistent with acute cardiac injury. The patient was aggressively managed. I had been called emergently to the room. He was given a bolus of IV diltiazem, 15 mg. He was placed on a diltiazem drip. His heart rate decreased and his atrial fibrillation was more obvious. He was given IV saline, 1 L. The patient has made significant improvement with the above treatment. The heart rate is controlled, he is comfortable. He does not appear short of breath and does not appear in acute distress. The patient is in need of a hospital stay. He has Covid pneumonia and presents with a rapid atrial fibrillation. I do think hospitalization is warranted. I spoke to the patient and case management. The on-call hospitalist was consulted. Past Med/Surg History Medical History Arthritis Atrial fibrillation NO CURRENT PROBLEMS Atrial fibrillation with RVR Atrial fibrillation, currently in sinus rhythm BMI 45.0-49.9, adult Dyslipidemia Dyspnea on exertion Gout Hepatic steatosis Hyperlipidemia Hyperlipidemia Hypertension Impaired fasting glucose Impingement syndrome of left shoulder Kidney stones OPEN PROCEDURE TO REMOVE STONE AT AGE 21 Left bundle branch block (LBBB) Lymphadenopathy Osteoarthritis PSVT (paroxysmal supraventricular tachycardia) Skin depigmentation Skin tag Ureteral stone Vision problem Surgical History History of anesthesia reaction PT VERBALIZED FEELING FLU-LIKE ALL OVER AFTER ANESTHESIA History of cholecystectomy History of cholecystectomy History of lithotripsy MULTIPLE X'S History of postoperative nausea and vomiting History of repair of rotator cuff LEFT History of tonsillectomy History of tooth extraction History of total knee replacement RT Family History Mother Diabetes Hypertension Kidney stones Father Kidney stones Hypertension Denies family history of Ovarian cancer Prostate cancer Myocardial infarction Breast cancer Colorectal cancer Social History Smoking Status: Former smoker Tobacco Type: Cigars Age Started Using Tobacco: 16; Age Quit Using Tobacco: 57; Cigarettes Per Day: 10 cigars; Smoking End Date: 2017; Second Hand Exposure: No; Hx Alcohol Use: Yes Alcohol type: beer Alcohol Intake Frequency: 4 or More x per/Week Hx Substance Use: No Preferred Language: Vincentian Communication Ability: Effective Visual Impairment: No Limitations Hearing Ability: Normal Attendant Sales Required: No Beliefs That Will Affect Care: None marital status: Single Current Living Situation: Alone current occupational status: employed Other Information That Helps Us Care for You: No Feels Safe at Home: Yes Safety Concerns: Feels Safe At This Time Childhood Exposure to Second-Hand Smoke: No caffeine: Yes (coffee x 20 ounces per day.) during the past year weight has: remained stable Dental Care, Regularly: Yes Physical Activity Frequency: Does not Exercise Physical Activity Frequency Comment: due to covid Seatbelt Use: always Sunscreen Use: No Assistive Devices: None Allergies Allergies Allergy/AdvReac Type Severity Reaction Status Date / Time No Known Drug Allergies Allergy NKDA Verified 10/14/20 16:30 Home Meds Home Medications Medication Instructions Recorded Confirmed amoxicillin 500 mg capsule 2,000 mg PO .BEFORE DENTIST PRN 12/31/19 10/14/20 cap acetaminophen [Tylenol Extra 1,000 mg PO Q6H PRN 10/14/20 10/14/20 Strength] metoprolol succinate 200 mg PO QPM 10/14/20 10/14/20 vitamin A-vitamin C-vit E-min 1 tab PO DAILY 10/14/20 10/14/20 [Ocuvite] Previous Rx's Medication Instructions Recorded potassium chloride 10 mEq 10 meq PO DAILY #90 tab 09/17/19 tablet,extended release allopurinol 300 mg tablet 300 mg PO QPM #90 tab 04/21/20 hydrochlorothiazide 50 mg tablet 50 mg PO DAILY #90 tab 05/26/20 metformin 500 mg tablet 500 mg PO BID #180 tab 05/26/20 tamsulosin 0.4 mg capsule 0.4 mg PO HS #90 cap 05/26/20 diltiazem HCl 240 mg capsule,24 240 mg PO DAILY #90 cap 08/06/20 hr,extended release Results & Data (ED) Vital Signs Vital Signs - 24 hr 10/14/20 14:48 10/14/20 15:03 10/14/20 15:04 Temperature 36.6 C Temperature Source Oral Pulse Rate 172 H 139 H Pulse Rate from SpO2 Sensor 74 Pulse Rhythm Regular Pulse Strength Normal Respiratory Rate 20 17 Respiratory Effort / Characteristics Non-Labored Spontaneous Respiratory Depth Normal Respiratory Pattern Regular Blood Pressure 88/65 L 95/68 L Blood Pressure Mean 72 77 Blood Pressure Position Sitting Pulse Oximetry 95 93 95 Oxygen Delivery Method Room Air Room Air Room Air Sepsis Recent Fever Within 48 Hours No Sepsis New/Unexplained Change in Mental Status N/A Sepsis Action Taken by Nursing No Action Required 10/14/20 15:06 10/14/20 15:10 10/14/20 15:11 Temperature Temperature Source Pulse Rate 118 H 112 H 104 H Pulse Rate from SpO2 Sensor 60 76 76 Pulse Rhythm Pulse Strength Respiratory Rate 19 17 16 Respiratory Effort / Characteristics Respiratory Depth Respiratory Pattern Blood Pressure 88/57 L Blood Pressure Mean 67 Blood Pressure Position Pulse Oximetry 94 93 93 Oxygen Delivery Method Sepsis Recent Fever Within 48 Hours Sepsis New/Unexplained Change in Mental Status Sepsis Action Taken by Nursing 10/14/20 15:20 10/14/20 15:21 10/14/20 15:30 Temperature Temperature Source Pulse Rate 131 H 118 H 93 H Pulse Rate from SpO2 Sensor 84 Pulse Rhythm Pulse Strength Respiratory Rate 14 19 Respiratory Effort / Characteristics Respiratory Depth Respiratory Pattern Blood Pressure 126/76 105/82 Blood Pressure Mean 92 89 Blood Pressure Position Pulse Oximetry 94 Oxygen Delivery Method Sepsis Recent Fever Within 48 Hours Sepsis New/Unexplained Change in Mental Status Sepsis Action Taken by Nursing 10/14/20 15:31 10/14/20 15:40 10/14/20 15:41 Temperature Temperature Source Pulse Rate 98 H 95 H 98 H Pulse Rate from SpO2 Sensor 83 87 86 Pulse Rhythm Pulse Strength Respiratory Rate 16 12 Respiratory Effort / Characteristics Respiratory Depth Respiratory Pattern Blood Pressure 115/74 Blood Pressure Mean 87 Blood Pressure Position Pulse Oximetry 93 94 94 Oxygen Delivery Method Sepsis Recent Fever Within 48 Hours Sepsis New/Unexplained Change in Mental Status Sepsis Action Taken by Nursing 10/14/20 15:50 10/14/20 15:51 10/14/20 16:00 Temperature Temperature Source Pulse Rate 122 H 118 H 91 H Pulse Rate from SpO2 Sensor 66 59 L 92 H Pulse Rhythm Pulse Strength Respiratory Rate 16 14 13 Respiratory Effort / Characteristics Respiratory Depth Respiratory Pattern Blood Pressure 129/69 104/79 Blood Pressure Mean 89 87 Blood Pressure Position Pulse Oximetry 94 94 94 Oxygen Delivery Method Sepsis Recent Fever Within 48 Hours Sepsis New/Unexplained Change in Mental Status Sepsis Action Taken by Nursing 10/14/20 16:01 10/14/20 16:10 10/14/20 16:20 Temperature Temperature Source Pulse Rate 115 H 119 H 104 H Pulse Rate from SpO2 Sensor 69 72 Pulse Rhythm Pulse Strength Respiratory Rate 23 18 24 Respiratory Effort / Characteristics Respiratory Depth Respiratory Pattern Blood Pressure 102/81 Blood Pressure Mean 88 Blood Pressure Position Pulse Oximetry 93 94 93 Oxygen Delivery Method Sepsis Recent Fever Within 48 Hours Sepsis New/Unexplained Change in Mental Status Sepsis Action Taken by Nursing 10/14/20 16:21 10/14/20 16:28 10/14/20 16:30 Temperature Temperature Source Pulse Rate 121 H 119 H 120 H Pulse Rate from SpO2 Sensor 61 60 61 Pulse Rhythm Pulse Strength Respiratory Rate 19 18 20 Respiratory Effort / Characteristics Respiratory Depth Respiratory Pattern Blood Pressure 111/63 110/59 L Blood Pressure Mean 79 76 Blood Pressure Position Pulse Oximetry 93 94 95 Oxygen Delivery Method Sepsis Recent Fever Within 48 Hours Sepsis New/Unexplained Change in Mental Status Sepsis Action Taken by Nursing 10/14/20 16:31 10/14/20 16:40 10/14/20 16:41 Temperature Temperature Source Pulse Rate 120 H 121 H 121 H Pulse Rate from SpO2 Sensor 60 60 61 Pulse Rhythm Pulse Strength Respiratory Rate 16 21 15 Respiratory Effort / Characteristics Respiratory Depth Respiratory Pattern Blood Pressure 120/71 Blood Pressure Mean 87 Blood Pressure Position Pulse Oximetry 93 92 92 Oxygen Delivery Method Sepsis Recent Fever Within 48 Hours Sepsis New/Unexplained Change in Mental Status Sepsis Action Taken by Nursing 10/14/20 16:50 10/14/20 16:51 10/14/20 17:00 Temperature Temperature Source Pulse Rate 105 H 96 H 92 H Pulse Rate from SpO2 Sensor 76 81 92 H Pulse Rhythm Pulse Strength Respiratory Rate 21 21 22 Respiratory Effort / Characteristics Respiratory Depth Respiratory Pattern Blood Pressure 106/73 101/72 Blood Pressure Mean 84 81 Blood Pressure Position Pulse Oximetry 94 93 93 Oxygen Delivery Method Sepsis Recent Fever Within 48 Hours Sepsis New/Unexplained Change in Mental Status Sepsis Action Taken by Nursing 10/14/20 17:01 10/14/20 17:10 10/14/20 17:11 Temperature Temperature Source Pulse Rate 121 H 93 H 93 H Pulse Rate from SpO2 Sensor 68 92 H 93 H Pulse Rhythm Pulse Strength Respiratory Rate 20 19 20 Respiratory Effort / Characteristics Respiratory Depth Respiratory Pattern Blood Pressure 112/74 Blood Pressure Mean 86 Blood Pressure Position Pulse Oximetry 93 93 95 Oxygen Delivery Method Sepsis Recent Fever Within 48 Hours Sepsis New/Unexplained Change in Mental Status Sepsis Action Taken by Nursing 10/14/20 17:20 10/14/20 17:21 10/14/20 17:30 Temperature Temperature Source Pulse Rate 92 H 92 H 92 H Pulse Rate from SpO2 Sensor 92 H 92 H 92 H Pulse Rhythm Pulse Strength Respiratory Rate 21 23 19 Respiratory Effort / Characteristics Respiratory Depth Respiratory Pattern Blood Pressure 105/74 118/77 Blood Pressure Mean 84 90 Blood Pressure Position Pulse Oximetry 93 93 95 Oxygen Delivery Method Sepsis Recent Fever Within 48 Hours Sepsis New/Unexplained Change in Mental Status Sepsis Action Taken by Nursing 10/14/20 17:31 10/14/20 17:40 10/14/20 17:41 Temperature Temperature Source Pulse Rate 92 H 119 H 111 H Pulse Rate from SpO2 Sensor 91 H 65 90 Pulse Rhythm Pulse Strength Respiratory Rate 22 10 L 16 Respiratory Effort / Characteristics Respiratory Depth Respiratory Pattern Blood Pressure 115/61 Blood Pressure Mean 79 Blood Pressure Position Pulse Oximetry 95 93 94 Oxygen Delivery Method Sepsis Recent Fever Within 48 Hours Sepsis New/Unexplained Change in Mental Status Sepsis Action Taken by Nursing 10/14/20 17:50 10/14/20 17:51 10/14/20 18:00 Temperature Temperature Source Pulse Rate 96 H 92 H 91 H Pulse Rate from SpO2 Sensor 91 H 89 92 H Pulse Rhythm Pulse Strength Respiratory Rate 18 19 19 Respiratory Effort / Characteristics Respiratory Depth Respiratory Pattern Blood Pressure 99/60 L 97/66 L Blood Pressure Mean 73 76 Blood Pressure Position Pulse Oximetry 94 93 94 Oxygen Delivery Method Sepsis Recent Fever Within 48 Hours Sepsis New/Unexplained Change in Mental Status Sepsis Action Taken by Nursing 10/14/20 18:01 10/14/20 18:10 10/14/20 18:11 Temperature Temperature Source Pulse Rate 91 H 92 H 92 H Pulse Rate from SpO2 Sensor 92 H 92 H 92 H Pulse Rhythm Pulse Strength Respiratory Rate 18 19 22 Respiratory Effort / Characteristics Respiratory Depth Respiratory Pattern Blood Pressure 99/66 L Blood Pressure Mean 77 Blood Pressure Position Pulse Oximetry 93 94 93 Oxygen Delivery Method Sepsis Recent Fever Within 48 Hours Sepsis New/Unexplained Change in Mental Status Sepsis Action Taken by [facility] Medications Current Medication List: was personally reviewed by me Laboratory Data Attestation: I reviewed the patient's lab results. Result diagrams: 10/14/20 15:00 10/14/20 15:00 Lab Results 10/14/20 10/14/20 10/14/20 Range/Units 15:00 15:00 15:00 WBC 8.16 (4.8-10.8) K/uL RBC 5.72 (4.7-6.1) M/uL Hgb 19.3 H (14.0-18.0) g/dL POC Hgb (14.0-18.0) g/dl Hct 52.8 H (42-52) % POC Hct (42-52) % MCV 92.3 (80-100) fL MCH 33.7 (25-34) pg MCHC 36.6 H (32-36) g/dL RDW Std Deviation 44.4 (36.4-46.3) fL RDW Coeff of Ramon 13.1 (11.5-14.5) % Plt Count 200 (130-400) K/uL MPV 9.5 (7.4-10.4) fL Immature Gran % (Auto) 0.6 % Neut % (Auto) 71.0 % Lymph % (Auto) 14.2 % [place] % (Auto) 14.1 % Eos % (Auto) 0.0 % Baso % (Auto) 0.1 % Neut # (Auto) 5.79 (1.4-6.5) K/uL Lymph # (Auto) 1.16 L (1.2-3.4) K/uL [place] # (Auto) 1.15 H (0.11-0.59) K/uL Eos # (Auto) 0.00 (0-0.5) K/uL Baso # (Auto) 0.01 (0-0.2) K/uL Immature Gran # (Auto) 0.05 H (0.00-0.02) K/uL PT 10.8 (9.0-12.0) Seconds INR 1.1 (0.9-1.1) APTT 28.8 (21.0-31.0) Seconds PTT Ratio 1.1 POC Sodium (135-144) mmol/L Sodium 134 L (136-145) mmol/L POC Potassium (3.3-5.0) mmol/L Potassium 3.4 L (3.5-5.1) mmol/L POC Chloride (101-112) mmol/L Chloride 100 (98-107) mmol/L Carbon Dioxide 25 (21-32) mmol/L POC Total CO2 (24-31) mmol/L Anion Gap 10.0 (3-11) POC Anion Gap (16-25) mmol/L POC BUN (7-18) mg/dl BUN 38 H (7-18) mg/dl Creatinine 1.68 H (0.6-1.4) mg/dl POC Creatinine (0.6-1.3) mg/dl Est Cr Clr Drug Dosing 51.8 ml/min Est GFR ( Amer) 49.4 Est GFR (Non-Af Amer) 42.6 BUN/Creatinine Ratio 22.4 H (10-20) Glucose 123 H (70-99) mg/dl POC Glucose (other) (70-99) mg/dl Lactate (0.4-2.0) mmol/L Calcium 9.2 (8.5-10.1) mg/dl POC Ioniz Calcium Sandip (1.12-1.32) mmol/l Magnesium 2.1 (1.8-2.4) mg/dl Total Bilirubin 0.6 (0.2-1) mg/dl AST 60 H (15-37) U/L ALT 116 H (12-78) U/L Alkaline Phosphatase 72 (45-117) U/L Troponin I 0.032 (0-0.045) ng/ml Total Protein 8.2 (6.4-8.2) gm/dl Albumin 3.7 (3.4-5.0) gm/dl Globulin 4.5 H (2.5-4.0) gm/dl Albumin/Globulin Ratio 0.8 L (0.9-2) TSH 5.700 H (0.300-4.500) uIu/ml Free T4 1.41 (0.8-1.6) ng/dl COVID-19 Eval Order SARS-CoV-2 (PCR) (Negative) Influenza Type A (PCR) (Neg) Influenza Type B (PCR) (Neg) RSV (RT-PCR) (Neg) 10/14/20 10/14/20 10/14/20 Range/Units 15:06 16:19 16:29 WBC (4.8-10.8) K/uL RBC (4.7-6.1) M/uL Hgb (14.0-18.0) g/dL POC Hgb 19.4 H (14.0-18.0) g/dl Hct (42-52) % POC Hct 57 H (42-52) % MCV (80-100) fL MCH (25-34) pg MCHC (32-36) g/dL RDW Std Deviation (36.4-46.3) fL RDW Coeff of Ramon (11.5-14.5) % Plt Count (130-400) K/uL MPV (7.4-10.4) fL Immature Gran % (Auto) % Neut % (Auto) % Lymph % (Auto) % [place] % (Auto) % Eos % (Auto) % Baso % (Auto) % Neut # (Auto) (1.4-6.5) K/uL Lymph # (Auto) (1.2-3.4) K/uL [place] # (Auto) (0.11-0.59) K/uL Eos # (Auto) (0-0.5) K/uL Baso # (Auto) (0-0.2) K/uL Immature Gran # (Auto) (0.00-0.02) K/uL PT (9.0-12.0) Seconds INR (0.9-1.1) APTT (21.0-31.0) Seconds PTT Ratio POC Sodium 136 (135-144) mmol/L Sodium (136-145) mmol/L POC Potassium 3.5 (3.3-5.0) mmol/L Potassium (3.5-5.1) mmol/L POC Chloride 98 L (101-112) mmol/L Chloride (98-107) mmol/L Carbon Dioxide (21-32) mmol/L POC Total CO2 22 L (24-31) mmol/L Anion Gap (3-11) POC Anion Gap 20.0 (16-25) mmol/L POC BUN 37 H (7-18) mg/dl BUN (7-18) mg/dl Creatinine (0.6-1.4) mg/dl POC Creatinine 1.7 H (0.6-1.3) mg/dl Est Cr Clr Drug Dosing ml/min Est GFR ( Amer) Est GFR (Non-Af Amer) BUN/Creatinine Ratio (10-20) Glucose (70-99) mg/dl POC Glucose (other) 119 H (70-99) mg/dl Lactate 2.8 H* (0.4-2.0) mmol/L Calcium (8.5-10.1) mg/dl POC Ioniz Calcium Sandip 1.06 L (1.12-1.32) mmol/l Magnesium (1.8-2.4) mg/dl Total Bilirubin (0.2-1) mg/dl AST (15-37) U/L ALT (12-78) U/L Alkaline Phosphatase (45-117) U/L Troponin I (0-0.045) ng/ml Total Protein (6.4-8.2) gm/dl Albumin (3.4-5.0) gm/dl Globulin (2.5-4.0) gm/dl Albumin/Globulin Ratio (0.9-2) TSH (0.300-4.500) uIu/ml Free T4 (0.8-1.6) ng/dl COVID-19 Eval Order CovFluRsv at [facility] SARS-CoV-2 (PCR) (Negative) Influenza Type A (PCR) (Neg) Influenza Type B (PCR) (Neg) RSV (RT-PCR) (Neg) 10/14/20 Range/Units 16:29 WBC (4.8-10.8) K/uL RBC (4.7-6.1) M/uL Hgb (14.0-18.0) g/dL POC Hgb (14.0-18.0) g/dl Hct (42-52) % POC Hct (42-52) % MCV (80-100) fL MCH (25-34) pg MCHC (32-36) g/dL RDW Std Deviation (36.4-46.3) fL RDW Coeff of Ramon (11.5-14.5) % Plt Count (130-400) K/uL MPV (7.4-10.4) fL Immature Gran % (Auto) % Neut % (Auto) % Lymph % (Auto) % [place] % (Auto) % Eos % (Auto) % Baso % (Auto) % Neut # (Auto) (1.4-6.5) K/uL Lymph # (Auto) (1.2-3.4) K/uL [place] # (Auto) (0.11-0.59) K/uL Eos # (Auto) (0-0.5) K/uL Baso # (Auto) (0-0.2) K/uL Immature Gran # (Auto) (0.00-0.02) K/uL PT (9.0-12.0) Seconds INR (0.9-1.1) APTT (21.0-31.0) Seconds PTT Ratio POC Sodium (135-144) mmol/L Sodium (136-145) mmol/L POC Potassium (3.3-5.0) mmol/L Potassium (3.5-5.1) mmol/L POC Chloride (101-112) mmol/L Chloride (98-107) mmol/L Carbon Dioxide (21-32) mmol/L POC Total CO2 (24-31) mmol/L Anion Gap (3-11) POC Anion Gap (16-25) mmol/L POC BUN (7-18) mg/dl BUN (7-18) mg/dl Creatinine (0.6-1.4) mg/dl POC Creatinine (0.6-1.3) mg/dl Est Cr Clr Drug Dosing ml/min Est GFR ( Amer) Est GFR (Non-Af Amer) BUN/Creatinine Ratio (10-20) Glucose (70-99) mg/dl POC Glucose (other) (70-99) mg/dl Lactate (0.4-2.0) mmol/L Calcium (8.5-10.1) mg/dl POC Ioniz Calcium Sandip (1.12-1.32) mmol/l Magnesium (1.8-2.4) mg/dl Total Bilirubin (0.2-1) mg/dl AST (15-37) U/L ALT (12-78) U/L Alkaline Phosphatase (45-117) U/L Troponin I (0-0.045) ng/ml Total Protein (6.4-8.2) gm/dl Albumin (3.4-5.0) gm/dl Globulin (2.5-4.0) gm/dl Albumin/Globulin Ratio (0.9-2) TSH (0.300-4.500) uIu/ml Free T4 (0.8-1.6) ng/dl COVID-19 Eval Order SARS-CoV-2 (PCR) POSITIVE A* (Negative) Influenza Type A (PCR) Negative (Neg) Influenza Type B (PCR) Negative (Neg) RSV (RT-PCR) Negative (Neg) Administered Medications Acetaminophen (Acetaminophen 325 Mg Tab) 650 mg PO Q4H PRN PRN Reason: Pain or Fever Stop: 11/13/20 20:35 Last Admin: 10/14/20 21:23 Dose: 650 mg Documented by: [id number] Apixaban (Apixaban 5 Mg Tablet) 5 mg PO BID YUVAL Stop: 11/13/20 20:59 Last Admin: 10/14/20 21:23 Dose: 5 mg Documented by: [id number] Diltiazem HCl 125 mg/ Dextrose 125 mls @ 5 mls/hr IV .Q24H YUVAL; Protocol Stop: 11/13/20 15:14 Last Titration: 10/14/20 16:30 Dose: 15 mg/hr, 15 mls/hr Documented by: [id number] Cosigned by: [id number] Titration: 10/14/20 15:56 Dose: 10 mg/hr, 10 mls/hr Documented by: [id number] Cosigned by: [id number] Titration: 10/14/20 15:37 Dose: 5 mg/hr, 5 mls/hr Documented by: [id number] Cosigned by: [id number] Admin: 10/14/20 15:22 Dose: 10 mg/hr, 10 mls/hr Documented by: [id number] Cosigned by: [id number] Potassium Chloride (K Jabier / Wtr) 10 meq in 100 mls @ 100 mls/hr IV Q1H YUVAL Stop: 10/15/20 01:44 Last Admin: 10/14/20 22:39 Dose: 100 mls/hr Documented by: [id number] Magnesium Sulfate/Dextrose (Magnesium Sulfate / D5w) 1 gm in 100 mls @ 50 mls/hr IV ONE ONE Stop: 10/14/20 23:34 Last Admin: 10/14/20 22:37 Dose: 50 mls/hr Documented by: [id number] Insulin Aspart (Insulin Aspart 100 Units/Ml 3 Ml Pen) 0 units SC ACHS YUVAL Stop: 11/13/20 20:59 Last Admin: 10/14/20 21:25 Dose: Not Given Documented by: [id number] Metoprolol Succinate (Metoprolol Succ 50mg Ext Rel Tab) 200 mg PO QPM YUVAL Stop: 11/13/20 20:59 Last Admin: 10/14/20 21:35 Dose: Not Given Documented by: [id number] Potassium Chloride (Potassium Chloride Crtab 20 Meq Tabcr) 20 meq PO TODAY@1808 YUVAL Stop: 10/14/20 23:00 Last Admin: 10/14/20 21:53 Dose: 20 meq Documented by: [id number] Tamsulosin HCl (Tamsulosin Hcl 0.4 Mg Cap) 0.4 mg PO HS YUVAL Stop: 11/13/20 20:59 Last Admin: 10/14/20 21:23 Dose: 0.4 mg Documented by: [id number] Discontinued Medications Diltiazem HCl (Diltiazem Hcl 5 Mg/Ml 5 Ml Vial) Confirm Administered Dose 25 mg IV .STK-MED ONE Stop: 10/14/20 15:00 Last Increment: 10/14/20 15:01 Dose: 15 mg Documented by: [id number] Cosigned by: [id number] Diltiazem HCl (Diltiazem Hcl 5 Mg/Ml 5 Ml Vial) 15 mg IV NOW STA Stop: 10/14/20 15:05 Last Admin: 10/14/20 15:12 Dose: Not Given Documented by: [id number] Sodium Chloride (Nss 1000ml) 1,000 mls @ 999 mls/hr IV .Q1H1M ONE Stop: 10/14/20 16:05 Last Infusion: 10/14/20 20:38 Dose: 0 mls/hr Documented by: [id number] Admin: 10/14/20 15:13 Dose: 999 mls/hr Documented by: [id number] Calcium Gluconate 2,000 mg/ (Sodium Chloride) 70 mls @ 240 mls/hr IV NOW ONE Stop: 10/14/20 18:25 Last Infusion: 10/14/20 21:25 Dose: 0 mls/hr Documented by: [id number] Admin: 10/14/20 20:49 Dose: 240 mls/hr Documented by: [id number] Lactated Ringer's (Lr) 1,000 mls @ 999 mls/hr IV .Q1H1M ONE Stop: 10/14/20 21:36 Last Infusion: 10/14/20 22:28 Dose: 0 mls/hr Documented by: [id number] Admin: 10/14/20 21:26 Dose: 999 mls/hr Documented by: [id number] Sodium Chloride (Nss 1000ml) 1,000 mls @ 999 mls/hr IV .Q1H1M ONE Stop: 10/14/20 22:35 Last Admin: 10/14/20 21:49 Dose: Not Given Documented by: [id number] Miscellaneous (Stat Iv Infusion Titration Per Protocol) 1 ea N/A NOW STA Stop: 10/14/20 15:05 Last Admin: 10/14/20 15:23 Dose: Not Given Documented by: [id number] Imaging Data Radiologist's Impression: Chest X-Ray 10/14/20 15:06 XR chest 1V portable CLINICAL HISTORY: weakness COMPARISON STUDY: 08/22/2016 FINDINGS: The heart is borderline enlarged. There is subtle peripheral airspace opacities suspicious for a multifocal pneumonia. There are no pleural effusions. There is no overt failure.[ IMPRESSION: Subtle peripheral airspace opacities suspicious for a multifocal pneumonia. ACT 112: Negative or not required by law. Electronically signed by: Surinder Solo M.D. 10/14/2020 4:07 PM Discharge Plan Visit Data Chief Complaint: Shortness of Breath/Dyspnea Stated Complaint: REF BY DR Conchis SAGE + ED Provider: Dimitris Simon Discharge Problem: Atrial fibrillation with rapid ventricular response, Pneumonia, SOB (shortness of breath), COVID-19 Patient Disposition: Admitted As Inpatient Condition: Fair Discharge Instructions Interventions: ED Discharge Assessment Last Done: 10/14/20 20:30 Discharge Problem: Pneumonia Qualifiers: Pneumonia type: due to unspecified organism Laterality: bilateral Lung location: unspecified part of lung Qualified Code(s): J18.9 - Pneumonia, unspecified organism
[2020-10-14 15:19] LABS: iSTAT Creatinine 1.7 mg/dl (0.6-1.3); iSTAT Hemoglobin 19.4 g/dl (14.0-18.0); iSTAT Ionized Calcium 1.06 mmol/l (1.12-1.32); iSTAT Potassium 3.5 mmol/L (3.3-5.0)
[2020-10-14 15:22] LABS: Basophils # (auto) 0.01 K/uL (0-0.2); Basophils % (auto) 0.1 %; Hematocrit (blood only) 52.8 % (42-52); Hemoglobin 19.3 g/dL (14.0-18.0); Immature Granulocytes # (auto) 0.05 K/uL (0.00-0.02); Immature Granulocytes % (auto) 0.6 %; Lymphocytes # (auto) 1.16 K/uL (1.2-3.4); Lymphocytes % (auto) 14.2 %; Mean Corpuscular Hemoglobin 33.7 pg (25-34); Mean Corpuscular Hgb Conc 36.6 g/dL (32-36); Mean Corpuscular Volume 92.3 fL (80-100); Mean Platelet Volume 9.5 fL (7.4-10.4); Monocytes # (auto) 1.15 K/uL (0.11-0.59); Monocytes % (auto) 14.1 %; Neutrophils # (auto) 5.79 K/uL (1.4-6.5); Platelet Count 200 K/uL (130-400); RDW Coefficient of Variation 13.1 % (11.5-14.5); RDW Standard Deviation 44.4 fL (36.4-46.3); Red Blood Count 5.72 M/uL (4.7-6.1); White Blood Count 8.16 K/uL (4.8-10.8)
[2020-10-14] MEDS: dilTIAZem HCL 125 MG in DEXTROSE 5% 100 ML IV SCH (15:22)
[2020-10-14 15:34] LABS: Albumin Level 3.7 gm/dl (3.4-5.0); BUN Creatinine Ratio 22.4 (10-20); Calcium 9.2 mg/dl (8.5-10.1); Creatinine Clr Calc Pharmacy 51.8 ml/min; Est GFR (African American) 49.4; Est GFR (Non-African American) 42.6; Magnesium 2.1 mg/dl (1.8-2.4); Potassium 3.4 mmol/L (3.5-5.1)
[2020-10-14 15:40] LABS: INR 1.1 (0.9-1.1); Partial Thromboplastin Ratio 1.1; Partial Thromboplastin Time 28.8 Seconds (21.0-31.0); Prothrombin Time 10.8 Seconds (9.0-12.0)
[2020-10-14 15:44] LABS: Albumin Globulin Ratio 0.8 (0.9-2); Bilirubin,Total 0.6 mg/dl (0.2-1); Globulin 4.5 gm/dl (2.5-4.0); Thyroid Stimulating Hormone 5.7 uIu/ml (0.300-4.500); Total Protein 8.2 gm/dl (6.4-8.2); Troponin I 0.032 ng/ml (0-0.045)
[2020-10-14 15:58] LABS: T4 Free Thyroxine 1.41 ng/dl (0.8-1.6)
--- NOTE | 2020-10-14 16:08 | XRay Report ---
XR chest 1V portable CLINICAL HISTORY: weakness COMPARISON STUDY: 08/22/2016 FINDINGS: The heart is borderline enlarged. There is subtle peripheral airspace opacities suspicious for a multifocal pneumonia. There are no pleural effusions. There is no overt failure.[ IMPRESSION: Subtle peripheral airspace opacities suspicious for a multifocal pneumonia. ACT 112: Negative or not required by law. Electronically signed by: Surinder Solo M.D. 10/14/2020 4:07 PM
[2020-10-14 17:16] LABS: Influenza A virus by PCR Negative (Neg); Influenza B virus by PCR Negative (Neg); RSV by PCR Negative (Neg)
[2020-10-14 17:40] LABS: SARS CoV2 RNA(COVID-19) InHosp POSITIVE (Negative)
[2020-10-14] MEDS ORDERED: POTASSIUM CHLORIDE CRTAB 20 MEQ TABCR PO SCH (18:08)
[2020-10-14] MEDS ORDERED: POTASSIUM CHLORIDE CRTAB 20 MEQ TABCR PO STA (18:08)
[2020-10-14] MEDS ORDERED: CALCIUM GLUCONATE 10% 2,000 MG in SODIUM CHLORIDE 0.9% 50 ML IV ONE (18:08)
--- NOTE | 2020-10-14 18:10 | History & Physical Report ---
Date of Service October 14, 2020 Assessment & Plan (1) COVID-19: COVID 19 - day #5 not hypoxic - Organ dysfunction with HUSSAIN - Watch clinical course closely - Consider adding azithromycin defer to rounding team - Steroids if he becomes hypoxic - Prone positioning, rotation from side to side- discussed with patient and he normally sleeps on abdomen - With HUSSAIN will hold on remdesivir- can reconsider if renal function improves with resuscitation and if becomes hypoxic - Lactate 2.8 repeat pending - Blood cultures pending. - CRP, ESR, PCT in morning (2) Atrial flutter, paroxysmal: Patient states he has not had any difficulties since about 3 years ago. He is on Diltiazem 240 XR and Toprol XR 200 - His ECG support and was in NSR as recently as 2 weeks ago. - CHADS VASC- 2 - will place on Eliquis 5 mg BID which patient is agreeable to now as he is actively in atrial flutter and has Covid, but declines any long-term anticoagulation - Continue with electrolyte replacement- CA, MG, K - Diltiazem drip on- attempt to wean off when euvolemic (3) Dyslipidemia: Triglycerides in Jul 385, LDL 75, HDL 29 - not on statin as outpatient - Was doing diet- but has been gaining weight with less activity with COVID (4) Hypertension: Controlled, WIll hold diuretics at this time until euvolemia is achieved (5) Hypovolemia: - Has multiple sources of free water loss, with diarrhea, fevers with sweats, and decreased PO intake- 1 Liter LR followed by oral hydration to keep lungs dry - HUSSAIN- likely pre renal - Hemoconcentrated - mild hyponatremia with hypochloridemia (6) CKD (chronic kidney disease), stage III: CKD III with HUSSAIN stage II - Pre-renal likely as above, aggravated with diuretic use- should improve with euvolemia - Keep MAPS >65, and ensure euvolemia - Hold nephrotoxic agents and if needed minimize exposure time - Normal HCO3 (7) DMII (diabetes mellitus, type 2): Hold Metformin - SSI coverage (8) Left bundle branch block (LBBB): Baseline not new - continue to follow Recent echocardiogram with preserved EF and recent nuclear stress test normal (9) Hypokalemia: Replace with oral potassium chloride Follow BMP (10) Nephrolithiasis: Has long history of both uric acid and calcium oxalate stones, passed a stone recently and feels like he is passing another 1 Follow for worsening renal function (11) Obesity (BMI 35.0-39.9 without comorbidity): Continue with weight loss and activity (12) DVT prophylaxis: DVT: SCD's, Eliquis CODE: Full History of Present Illness Chief Complaint: COVID Primary Care Provider: Franco Valdez MD 64 YOM with past medical history of obesity, DMII, HTN, paroxysmal Aflutter (has proven NSR and is not on anticoagulation), LBBB, HLD, nephrolithiasis (passed urinary stone last week), CKD. Patient comes to the emergency room today for increase in HR. He was diagnosed on Tuesday with COVID from urgent care. He originally started feeling ill on Tuesday with headache and fevers. On Tuesday, he went and got tested. Tuesday he continued with fevers up to reported 102 and started with chills and night sweats that were accompanied by diarrhea. He eats and 30 min later he has to go to the bathroom. The diarrhea is mostly water and is brown yellow in color. He has decreased his oral intake due to this as well, and he reports that his urine volumes have been small and dark in color. He would be day 5 of COVID 19 at this point. In the ER he was noted to be tachycardic with HR 150-170 QRS 0.13, regular rhythm. He was given diltiazem bolus which decreased his HR and was then placed on Diltiazem drip. After his heart rate slowed down, he was noted to be in atrial flutter. He reports he took all his medications today. He is not hypoxic or having any chest discomfort or tightness, no dyspnea, and mild nonproductive cough. He will be admitted to COVID unit, continue with diltiazem drip, and rehydrate orally and give 1 Liter LR bolus. He is now in aflutter with variable rate and variable conduction. CHADVSVASC 2: 2. Anticoagulation was discussed with the patient by Dr. Fernandez, patient was given options and risks and benefits with VKA vs. DOAC vs. None. To include bleeding risks with each agent. With his COVID and Aflutter his risk is increased. 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 Allergies Allergy/AdvReac Type Severity Reaction Status Date / Time No Known Drug Allergies Allergy NKDA Verified 10/14/20 16:30 Home Medications Medication Instructions Recorded Confirmed Type potassium chloride 10 mEq 10 meq PO DAILY #90 tab 09/17/19 10/14/20 Rx tablet,extended release amoxicillin 500 mg capsule 2,000 mg PO .BEFORE DENTIST PRN 12/31/19 10/14/20 History cap allopurinol 300 mg tablet 300 mg PO QPM #90 tab 04/21/20 10/14/20 Rx hydrochlorothiazide 50 mg tablet 50 mg PO DAILY #90 tab 05/26/20 10/14/20 Rx metformin 500 mg tablet 500 mg PO BID #180 tab 05/26/20 10/14/20 Rx tamsulosin 0.4 mg capsule 0.4 mg PO HS #90 cap 05/26/20 10/14/20 Rx diltiazem HCl 240 mg capsule,24 240 mg PO DAILY #90 cap 08/06/20 10/14/20 Rx hr,extended release acetaminophen [Tylenol Extra 1,000 mg PO Q6H PRN 10/14/20 10/14/20 History Strength] metoprolol succinate 200 mg PO QPM 10/14/20 10/14/20 History vitamin A-vitamin C-vit E-min 1 tab PO DAILY 10/14/20 10/14/20 History [Ocuvite] Past Med/Surg History Medical History (Updated 10/14/20 @ 21:05 by Alexa Fernandez MD) Arthritis Atrial fibrillation NO CURRENT PROBLEMS Atrial fibrillation with RVR Atrial fibrillation, currently in sinus rhythm BMI 45.0-49.9, adult Dyslipidemia Dyspnea on exertion Gout Hepatic steatosis Hyperlipidemia Hyperlipidemia Hypertension Impaired fasting glucose Impingement syndrome of left shoulder Kidney stones OPEN PROCEDURE TO REMOVE STONE AT AGE 21 Left bundle branch block (LBBB) Lymphadenopathy Osteoarthritis PSVT (paroxysmal supraventricular tachycardia) Skin depigmentation Skin tag Ureteral stone Vision problem Surgical History History of anesthesia reaction PT VERBALIZED FEELING FLU-LIKE ALL OVER AFTER ANESTHESIA History of cholecystectomy History of cholecystectomy History of lithotripsy MULTIPLE X'S History of postoperative nausea and vomiting History of repair of rotator cuff LEFT History of tonsillectomy History of tooth extraction History of total knee replacement RT Family History Mother Diabetes Hypertension Kidney stones Father Kidney stones Hypertension Denies family history of Ovarian cancer Prostate cancer Myocardial infarction Breast cancer Colorectal cancer Social History Smoking Status: Former smoker Tobacco Type: Cigars Age Started Using Tobacco: 16; Age Quit Using Tobacco: 57; Cigarettes Per Day: 10 cigars; Smoking End Date: 2017; Second Hand Exposure: No; Hx Alcohol Use: Yes Alcohol type: beer Alcohol Intake Frequency: 4 or More x per/Week Hx Substance Use: No Preferred Language: Turkmen Communication Ability: Effective Visual Impairment: No Limitations Hearing Ability: Normal Law Enforcement Director Required: No Beliefs That Will Affect Care: None marital status: Single Current Living Situation: Alone current occupational status: employed Other Information That Helps Us Care for You: No Feels Safe at Home: Yes Safety Concerns: Feels Safe At This Time Childhood Exposure to Second-Hand Smoke: No caffeine: Yes (coffee x 20 ounces per day.) during the past year weight has: remained stable Dental Care, Regularly: Yes Physical Activity Frequency: Does not Exercise Physical Activity Frequency Comment: due to covid Seatbelt Use: always Sunscreen Use: No Assistive Devices: None Review of Systems Review of Systems: REVIEW OF SYSTEMS: Constitutional: (+) fever, sweats or chills Eyes: No diplopia, no worsening or blurred vision ENT: normal hearing, no trouble swallowing Respiratory: (+) cough, NO sputum, dyspnea at rest or on exertion Cardiovascular: No chest pain, tightness or palpitations Abdomen: (+) diarrhea, No pain, nausea, vomiting, or constipation Musculoskeletal: No joint pain, calf pain, swelling Neurologic: No weakness, numbness/tingling, or balance problems Psychiatric: No anxiety or depression Skin: No rash or itch Physical Exam Physical Exam: PHYSICAL EXAM: General: awake, alert, no apparent distress Head: Normocephalic, atraumatic ENT: PERRL, EOMI, no pharyngeal exudate, mucous membranes moist Neuro: AAO x 3, speech clear and appropriate, strength intact bilaterally 5/5, sensation intact and equal all extremities and dermatomes, no pronator drift Chest: equal rise and fall of the chest, no accessory muscle use, no heaves or thrills, Clear to auscultation, on room air, Cardiac: Irregular rate and rhythm, S1S2 telemetry reviewed, skin warm dry, cap refill <3 seconds, peripheral pulses +2 no JVD, no murmur, no edema GI: NABS x 4 quadrants, soft, nontender to palpation, no rebound, guarding or tenderness : Spontaneously voiding, no pain, no CVA tenderness, has only voided once since ER Extremities: Normal inspection, no peripheral edema or erythema, calfs nontender to palpation Psych: Normal mood and affect Skin: no rash or erythema Results & Data Results & Data ([facility] [place]) Vital Signs (Past 12 Hours) Vital Signs Temp Pulse Resp BP Pulse Ox 10/14/20 16:10 119 H 18 94 10/14/20 16:01 115 H 23 93 10/14/20 16:00 91 H 13 104/79 94 10/14/20 15:51 118 H 14 129/69 94 10/14/20 15:50 122 H 16 94 10/14/20 15:41 98 H 12 94 10/14/20 15:40 95 H 16 115/74 94 10/14/20 15:31 98 H 93 10/14/20 15:30 93 H 105/82 94 10/14/20 15:21 118 H 19 126/76 10/14/20 15:20 131 H 14 10/14/20 15:11 104 H 16 93 10/14/20 15:10 112 H 17 88/57 L 93 10/14/20 15:06 118 H 19 94 10/14/20 15:04 139 H 17 95/68 L 95 10/14/20 15:03 93 10/14/20 14:48 36.6 C 172 H 20 88/65 L 95 Laboratory Results Abnormal lab results 10/14/20 10/14/20 10/14/20 Range/Units 15:00 15:00 15:06 Hgb 19.3 H (14.0-18.0) g/dL POC Hgb 19.4 H (14.0-18.0) g/dl Hct 52.8 H (42-52) % POC Hct 57 H (42-52) % MCHC 36.6 H (32-36) g/dL Lymph # (Auto) 1.16 L (1.2-3.4) K/uL Antelope # (Auto) 1.15 H (0.11-0.59) K/uL Immature Gran # (Auto) 0.05 H (0.00-0.02) K/uL Sodium 134 L (136-145) mmol/L Potassium 3.4 L (3.5-5.1) mmol/L POC Chloride 98 L (101-112) mmol/L POC Total CO2 22 L (24-31) mmol/L POC BUN 37 H (7-18) mg/dl BUN 38 H (7-18) mg/dl Creatinine 1.68 H (0.6-1.4) mg/dl POC Creatinine 1.7 H (0.6-1.3) mg/dl BUN/Creatinine Ratio 22.4 H (10-20) Glucose 123 H (70-99) mg/dl POC Glucose (other) 119 H (70-99) mg/dl Lactate (0.4-2.0) mmol/L POC Ioniz Calcium Sandip 1.06 L (1.12-1.32) mmol/l AST 60 H (15-37) U/L ALT 116 H (12-78) U/L Globulin 4.5 H (2.5-4.0) gm/dl Albumin/Globulin Ratio 0.8 L (0.9-2) TSH 5.700 H (0.300-4.500) uIu/ml SARS-CoV-2 (PCR) (Negative) 10/14/20 10/14/20 Range/Units 16:19 16:29 Hgb (14.0-18.0) g/dL POC Hgb (14.0-18.0) g/dl Hct (42-52) % POC Hct (42-52) % MCHC (32-36) g/dL Lymph # (Auto) (1.2-3.4) K/uL Antelope # (Auto) (0.11-0.59) K/uL Immature Gran # (Auto) (0.00-0.02) K/uL Sodium (136-145) mmol/L Potassium (3.5-5.1) mmol/L POC Chloride (101-112) mmol/L POC Total CO2 (24-31) mmol/L POC BUN (7-18) mg/dl BUN (7-18) mg/dl Creatinine (0.6-1.4) mg/dl POC Creatinine (0.6-1.3) mg/dl BUN/Creatinine Ratio (10-20) Glucose (70-99) mg/dl POC Glucose (other) (70-99) mg/dl Lactate 2.8 H* (0.4-2.0) mmol/L POC Ioniz Calcium Sandip (1.12-1.32) mmol/l AST (15-37) U/L ALT (12-78) U/L Globulin (2.5-4.0) gm/dl Albumin/Globulin Ratio (0.9-2) TSH (0.300-4.500) uIu/ml SARS-CoV-2 (PCR) POSITIVE A* (Negative) Diagnostic Findings Chest X-Ray 10/14/20 15:06 XR chest 1V portable CLINICAL HISTORY: weakness COMPARISON STUDY: 08/22/2016 FINDINGS: The heart is borderline enlarged. There is subtle peripheral airspace opacities suspicious for a multifocal pneumonia. There are no pleural effusions. There is no overt failure.[ IMPRESSION: Subtle peripheral airspace opacities suspicious for a multifocal pneumonia. Electronically signed by: Surinder Solo M.D. 10/14/2020 4:07 PM Medications Administered Diltiazem HCl 125 mg/ Dextrose 125 mls @ 5 mls/hr IV .Q24H [facility]; Protocol Stop: 11/13/20 15:14 Last Titration: 10/14/20 16:30 Dose: 15 mg/hr, 15 mls/hr Documented by: [id number] Cosigned by: [id number] Titration: 10/14/20 15:56 Dose: 10 mg/hr, 10 mls/hr Documented by: [id number] Cosigned by: [id number] Titration: 10/14/20 15:37 Dose: 5 mg/hr, 5 mls/hr Documented by: [id number] Cosigned by: [id number] Admin: 10/14/20 15:22 Dose: 10 mg/hr, 10 mls/hr Documented by: [id number] Cosigned by: [id number] Discontinued Medications Diltiazem HCl (Diltiazem Hcl 5 Mg/Ml 5 Ml Vial) Confirm Administered Dose 25 mg IV .ST-MED ONE Stop: 10/14/20 15:00 Last Increment: 10/14/20 15:01 Dose: 15 mg Documented by: [id number] Cosigned by: [id number] Diltiazem HCl (Diltiazem Hcl 5 Mg/Ml 5 Ml Vial) 15 mg IV NOW STA Stop: 10/14/20 15:05 Last Admin: 10/14/20 15:12 Dose: Not Given Documented by: [id number] Sodium Chloride (Nss 1000ml) 1,000 mls @ 999 mls/hr IV .Q1H1M ONE Stop: 10/14/20 16:05 Last Admin: 10/14/20 15:13 Dose: 999 mls/hr Documented by: [id number] Miscellaneous (Stat Iv Infusion Titration Per Protocol) 1 ea N/A NOW STA Stop: 10/14/20 15:05 Last Admin: 10/14/20 15:23 Dose: Not Given Documented by: [id number] Home Medications potassium chloride 10 mEq tablet,extended release 10 meq PO DAILY #90 tab 09/17/19 [Rx Confirmed 10/14/20] amoxicillin 500 mg capsule 2,000 mg PO .BEFORE DENTIST PRN cap 12/31/19 [History Confirmed 10/14/20] allopurinol 300 mg tablet 300 mg PO QPM #90 tab 04/21/20 [Rx Confirmed 10/14/20] hydrochlorothiazide 50 mg tablet 50 mg PO DAILY #90 tab 05/26/20 [Rx Confirmed 10/14/20] metformin 500 mg tablet 500 mg PO BID #180 tab 05/26/20 [Rx Confirmed 10/14/20] tamsulosin 0.4 mg capsule 0.4 mg PO HS #90 cap 05/26/20 [Rx Confirmed 10/14/20] diltiazem HCl 240 mg capsule,24 hr,extended release 240 mg PO DAILY #90 cap 08/06/20 [Rx Confirmed 10/14/20] acetaminophen [Tylenol Extra Strength] 1,000 mg PO Q6H PRN 10/14/20 [History Confirmed 10/14/20] metoprolol succinate 200 mg PO QPM 10/14/20 [History Confirmed 10/14/20] vitamin A-vitamin C-vit E-min [Ocuvite] 1 tab PO DAILY 10/14/20 [History C onfirmed 05/04/21] Active Medications Diltiazem HCl 125 mg/ Dextrose 125 mls @ 5 mls/hr IV .Q24H [facility]; Protocol Stop: 11/13/20 15:14 Last Titration: 10/14/20 16:30 Dose: 15 mg/hr, 15 mls/hr Documented by: Calcium Gluconate 2,000 mg/ (Sodium Chloride) 70 mls @ 240 mls/hr IV NOW ONE Stop: 10/14/20 18:25 ECG Additional Comments: Wide QRS tachycardia Left axis deviation Non-specific intra-ventricular conduction block Possible Lateral infarct , age undetermined Abnormal ECG When compared with ECG of 17-MAY-2018 16:55, Wide QRS tachycardia has replaced Sinus rhythm Vent. rate has increased BY 119 BPM Repeat ECG pending Code Status & VTE Plan Code Status CODE: FULL VTE: SCD's VTE Prophylaxis Plan VTE Prophylaxis will be ordered: Yes Supervising Physician Co-Signing Physician Notes CIVIL DESIGNER Supervision note: I have personally seen and examined the patient and discussed and verified the mackey points of the history and physical along with the plan with SUZANNE Holly with the following exceptions and/or additions: This patient is a 64-year-old female with history of paroxysmal atrial fibrillation and flutter, BPH, HTN, DM 2, with recent diagnosis of Covid-19 with symptoms for last 5 days, here with rapid atrial flutter. Having extensive amounts of diarrhea and is dehydrated. Heart rate was in the 170s with a left bundle branch block on admission and was clearly in atrial flutter and some fibrillation after rate was slowed down with IV diltiazem. He was also given IV fluids in the ER. He is not hypoxic but does have subtle peripheral infiltrates on chest x-ray consistent with Covid-19 pneumonia He had some chest tightness, nausea, and diaphoresis when his heart rate was in the 170s but that has now completely resolved with rate control. History and ROS reviewed as above Vitals reviewed Gen: AAOx3, NAD, obese HEENT: Anicteric sclerae, EOMI CV: Irregularly irregular, mild tachycardia no mgr nl S1S2 Pulm: CTAB no wcr Abd: +BS soft NT ND no masses or hernias Ext: No edema, 2+ DP pulses Skin: No rashes, warm/dry Neuro: Full strength throughout Laboratory values reviewed Chest x-ray image personally reviewed by me agree with radiology report ECG reviewed 64-year-old male here with Covid-19 pneumonia and rapid atrial flutter, dehydration from diarrhea As above, not hypoxic and no need for dexamethasone Remdesivir at this time but will continue to monitor as he is only on day 5 of his Covid symptoms Rate control with diltiazem drip and taper off as able to Replace electrolytes Follow renal function Hydrating with LR Cardiology consultation Patient is agreeable only to anticoagulation in the short-term as he states that for years he has been in a sinus rhythm and does not 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 We also discussed the increased risk of VTE with Covid-19 and therefore he is agreeable to being on Eliquis at least while hospitalized but did encourage him to continue this for at least a few weeks after discharge. PG Care Time/CCT Total # of Minutes Spent Total Time Spent with Patient: Total time spent is greater than 50% in coordination of care (as documented) at patient's floor/unit and/or counseling patient: Coding Level of Care Code 45810 Initial Inpt Care Lvl 3 Diagnoses COVID-19 U07.1 Atrial flutter, paroxysmal I48.92 Dyslipidemia E78.5 Hypertension I10 Hypertension type: essential hypertension Hypovolemia E86.1 CKD (chronic kidney disease), stage III N18.32 Chronic kidney disease stage 3 subtype: stage 3b (GFR 30-44) DMII (diabetes mellitus, type 2) E11.9; Z79.4 Diabetes mellitus complication status: without complication Diabetes mellitus mcfp insulin use: 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 Left bundle branch block (LBBB) I44.7 Hypokalemia E87.6 Nephrolithiasis N20.0 Obesity (BMI 35.0-39.9 without comorbidity) E66.9 DVT prophylaxis Z29.9 (1) DMII (diabetes mellitus, type 2) Diabetes mellitus complication status: without complication Diabetes mellitus intermodal owner 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
[2020-10-14 20:07] LABS: Fibrinogen 433 mg/dl (184-400)
[2020-10-14] MEDS ORDERED: ONDANSETRON INJ 2 MG/ML 2 ML VIAL IV PRN (20:36)
[2020-10-14] MEDS ORDERED: GLUCOSE 40% GEL 15 GM TUBE PO PRN (20:36)
[2020-10-14] MEDS ORDERED: LACTATED RINGER'S 1,000 ML IV ONE (20:36)
[2020-10-14] MEDS ORDERED: CARBOHYDRATES FOR HYPOGLYCEMIA PO PRN (20:36)
[2020-10-14] MEDS ORDERED: GLUCOSE 10 TABS/TUBE PO PRN (20:36)
[2020-10-14] MEDS ORDERED: ACETAMINOPHEN HOME PACK 500 MG TABLET PO PRN (20:36)
[2020-10-14] MEDS ORDERED: GLUCAGON FOR INJ 1 MG VIAL SQ PRN (20:36)
[2020-10-14] MEDS ORDERED: DEXTROSE 50% 50 ML SYRINGE IV PRN (20:36)
[2020-10-14] MEDS ORDERED: POLYETHYLENE (MIRALAX) 17 GM PACK PO PRN (20:36)
[2020-10-14] MEDS ORDERED: METOPROLOL SUCC 50MG EXT REL TAB PO SCH (21:00)
[2020-10-14] MEDS ORDERED: PNEUMOCOCCAL POLYSACCHARIDES 25 MCG/0.5 ML VIAL/SYR IM ONE (21:01)
[2020-10-14] MEDS ORDERED: PNEUMOCOCCAL ADMINISTRATION CHARGE ONE (21:01)
[2020-10-14] MEDS: ACETAMINOPHEN 325 MG TAB PO PRN (21:23)
[2020-10-14] MEDS: TAMSULOSIN HCL 0.4 MG CAP PO SCH (21:23)
[2020-10-14] MEDS: APIXABAN 5 MG TABLET PO SCH (21:23)
[2020-10-14] MEDS: INSULIN ASPART 100 UNITS/ML 3 ML PEN SC SCH (21:25)
[2020-10-14] MEDS ORDERED: MAGNESIUM SULFATE / D5W 1 GM/100 ML BAG IV ONE (21:35)
[2020-10-14 21:51] LABS: Appearance Urine Clear (Clear); Bacteria Urine Automated Negative (Negative); Bilirubin Urine Negative (Negative); Blood Urine Negative (Negative); Color Urine Yellow; Glucose Urine UA Negative (Negative); Ketones Urine Negative (Negative); Leukocyte Esterase Urine Negative (Negative); Nitrite Urine Negative (Negative); Protein Urine 2+ (Negative); RBC Urine Automated 0-4 /hpf (0-4); Specific Gravity Urine 1.022 (1.000-1.030); Urobilinogen Urine Negative (Negative); pH Urine 5.5 (4.5-7.5)
[2020-10-14] MEDS: POTASSIUM CHLORIDE / WTR 10 MEQ/100 ML PLCT IV SCH ×2 (22:39→23:45)
[2020-10-15] MEDS: dilTIAZem HCL 125 MG in DEXTROSE 5% 100 ML IV SCH (00:30)
[2020-10-15] MEDS: POTASSIUM CHLORIDE / WTR 10 MEQ/100 ML PLCT IV SCH ×2 (01:16→02:19)
[2020-10-15] MEDS: ACETAMINOPHEN 325 MG TAB PO PRN ×3 (02:23→19:39)
[2020-10-15 07:12] LABS: Basophils # (auto) 0.01 K/uL (0-0.2); Basophils % (auto) 0.2 %; Hematocrit (blood only) 45.9 % (42-52); Hemoglobin 16.3 g/dL (14.0-18.0); Immature Granulocytes # (auto) 0.03 K/uL (0.00-0.02); Immature Granulocytes % (auto) 0.5 %; Lymphocytes # (auto) 0.98 K/uL (1.2-3.4); Lymphocytes % (auto) 15.1 %; Mean Corpuscular Hemoglobin 32.9 pg (25-34); Mean Corpuscular Hgb Conc 35.5 g/dL (32-36); Mean Corpuscular Volume 92.7 fL (80-100); Mean Platelet Volume 9.4 fL (7.4-10.4); Monocytes % (auto) 12.3 %; Neutrophils # (auto) 4.68 K/uL (1.4-6.5); Neutrophils % (auto) 71.9 %; Platelet Count 145 K/uL (130-400); RDW Standard Deviation 44.6 fL (36.4-46.3); Red Blood Count 4.95 M/uL (4.7-6.1)
--- NOTE | 2020-10-15 07:54 | Hospitalist Progress Note ---
Date of Service October 15, 2020 Assessment & Plan (1) COVID-19: COVID 19 - day #5 remains without hypoxia - Organ dysfunction with HUSSAIN resolving with IV fluid - Steroids if he becomes hypoxic - Prone positioning, rotation from side to side- discussed with patient and he normally sleeps on abdomen - With HUSSAIN will hold on remdesivir- can reconsider if renal function improves with resuscitation and if becomes hypoxic - Lactate 2.8 repeat pending - Blood cultures negative to date. -CRP is elevated but only 1.89, procalcitonin is negative (2) Atrial flutter, paroxysmal: Patient states he has not had any difficulties since about 3 years ago. He is on Diltiazem 240 XR and Toprol XR 200 - His ECG support and was in NSR as recently as 2 weeks ago. - CHADS VASC- 2 - will place on Eliquis 5 mg BID which patient is agreeable to now as he is actively in atrial flutter and has Covid, but declines any long-term anticoagulation - Continue with electrolyte replacement- CA, MG, K -Patient continues on Cardizem p.o. his metoprolol dose will be reduced this is a fairly large dose of 200 at bedtime this will be down to 50 tartrate twice daily starting in the evening of 10/15 (3) Dyslipidemia: Triglycerides in Jul 385, LDL 75, HDL 29 - not on statin as outpatient - Was doing diet- but has been gaining weight with less activity with COVID (4) Hypertension: Controlled, continue to hold diuretics at this time initiating metoprolol the evening of 10/15 (5) Hypovolemia: - Has multiple sources of free water loss, with diarrhea, fevers with sweats, and decreased PO intake- 1 Liter LR followed by oral hydration to keep lungs dry - HUSSAIN-resolved - Hemoconcentrated - mild hyponatremia with hypochloridemia (6) CKD (chronic kidney disease), stage III: CKD III with HUSSAIN stage II - Pre-renal likely as above, aggravated with diuretic use-improved - (7) DMII (diabetes mellitus, type 2): Hold Metformin - SSI coverage (8) Left bundle branch block (LBBB): Baseline not new - continue to follow Recent echocardiogram with preserved EF and recent nuclear stress test normal (9) Hypokalemia: Replaced with oral potassium chloride (10) Nephrolithiasis: Has long history of both uric acid and calcium oxalate stones, passed a stone recently and feels like he is passing another 1 Follow for worsening renal function (11) Obesity (BMI 35.0-39.9 without comorbidity): Continue with weight loss and activity (12) DVT prophylaxis: DVT: SCD's, Eliquis CODE: Full Admission and Anticipated Discharge Date Admission Date: October 14, 2020 Subjective Patient feels weak and tired very little respiratory symptoms continues with diarrhea and poor appetite Review of Systems Review of Systems: Mild distress and fatigue no headache, blurry or double vision no speech or swallowing issues very poor appetite no chest pain, pressure or palpitations no shortness of breath, cough or wheezes Family abdominal pain and diarrhea no dysuria, hematuria or frequency no focal joint pain or swelling no back pain, CVA tenderness or radicular pain no bruising, bleeding or rashes no focal signs of weakness or numbness or altered sensation no complaints of anxiety or depression.. Physical Exam Physical Exam: The patient appeared well nourished and normally developed. He is fatigued weak and tired Vital signs as documented. Head exam is normocephalic atraumatic Neck is without JVD, thyromegaly, or carotid bruits. Lungs are clear to auscultation, no focal loss of breath sounds Cardiac exam, Rhythm is regular.. No murmurs, rubs or gallops. Abdominal exam reveals hyperactive bowel sounds soft mildly distended tympanic Extremities are nonedematous and both pedal pulses are present Neurologic exam is alert and oriented, no focal loss of strength or sensation Skin is without bruises or rashes Psychologically is without concerns for anxiety or depression Results & Data Results & Data ([facility]) Vital Signs (Past 12 Hours) Vital Signs Temp Pulse Pulse Resp BP Pulse Ox Pulse Ox 10/15/20 07:40 98.6 F 68 20 96/67 L 97 10/15/20 04:00 98.2 F 90 20 89/64 L 92 10/15/20 00:14 88 10/14/20 22:54 98.6 F 80 17 90/57 L 92 10/14/20 22:17 94 10/14/20 20:35 99.0 F 61 20 96/60 L 94 PG Care Time/CCT Total # of Minutes Spent Total Time Spent with Patient: Total time spent is greater than 50% in coordination of care (as documented) at patient's floor/unit and/or counseling patient: Coding Level of Care Code 55827 Subseq Hosp Care Lvl 3 Diagnoses COVID-19 U07.1 Atrial flutter, paroxysmal I48.92 Dyslipidemia E78.5 Hypertension I10 Hypertension type: essential hypertension Hypovolemia E86.1 CKD (chronic kidney disease), stage III N18.32 Chronic kidney disease stage 3 subtype: stage 3b (GFR 30-44) DMII (diabetes mellitus, type 2) E11.9; Z79.4 Diabetes mellitus complication status: without complication Diabetes mellitus custodial insulin use: with custodial use Left bundle branch block (LBBB) I44.7 Hypokalemia E87.6 Nephrolithiasis N20.0 Obesity (BMI 35.0-39.9 without comorbidity) E66.9 DVT prophylaxis Z29.9 (1) DMII (diabetes mellitus, type 2) Diabetes mellitus complication status: without complication Diabetes mellitus custodial insulin use: with custodial use Qualified Code(s): E11.9 - Type 2 diabetes mellitus without complications; Z79.4 - custodial (current) use of insulin (2) CKD (chronic kidney disease), stage III Chronic kidney disease stage 3 subtype: stage 3b (GFR 30-44) Qualified Code(s): N18.32 - Chronic kidney disease, stage 3b (3) Hypertension Hypertension type: essential hypertension Qualified Code(s): I10 - Essential (primary) hypertension
[2020-10-15 07:59] LABS: BUN Creatinine Ratio 23.9 (10-20); C Reactive Protein 1.89 mg/dl (0-0.29); Calcium 8.8 mg/dl (8.5-10.1); Creatinine Clr Calc Pharmacy 73.9 ml/min; Est GFR (African American) 74.9; Est GFR (Non-African American) 64.6; Magnesium 2.2 mg/dl (1.8-2.4); Potassium 3.6 mmol/L (3.5-5.1)
[2020-10-15 08:10] LABS: Albumin Globulin Ratio 0.8 (0.9-2); Bilirubin,Total 0.6 mg/dl (0.2-1); Globulin 3.8 gm/dl (2.5-4.0); Total Protein 6.8 gm/dl (6.4-8.2)
--- NOTE | 2020-10-15 08:37 | Electrocardiogram Report ---
Test Reason : Blood Pressure : / mmHG Vent. Rate : 172 BPM Atrial Rate : 170 BPM P-R Int : 000 ms QRS Dur : 130 ms QT Int : 300 ms P-R-T Axes : 000 -44 100 degrees QTc Int : 507 ms Probable Sinus tachycardia or Supraventricular tachycardia Left bundle branch block Abnormal ECG When compared with ECG of 17-MAY-2018 16:55, Vent. rate has increased BY 119 BPM Confirmed by Rickie Lubin ([id number]) on 10/15/2020 8:37:48 AM Referred By: Confirmed By:Rickie Lubin
[2020-10-15] MEDS: dilTIAZem ER 120 MG CAPCR PO SCH (08:42)
[2020-10-15] MEDS: APIXABAN 5 MG TABLET PO SCH ×2 (08:44→20:31)
[2020-10-15] MEDS: INSULIN ASPART 100 UNITS/ML 3 ML PEN SC SCH ×4 (08:47→20:57)
--- NOTE | 2020-10-15 09:37 | Cardiology Consultation ---
Date of Consultation October 15, 2020 Assessment & Plan (1) Atrial flutter, paroxysmal: He presented with a very rapid regular rhythm which is almost certainly atrial flutter with 2-1 AV conduction. When his rate slowed down flutter waves could be seen and are faster than the typical 300 bpm. Still it is likely typical atrial flutter although I cannot be certain. The rapid conduction may have been due to catecholamine excess due to his acute presentation. He does not have frequent episodes of the arrhythmia however this one did last 36 hours. He is on a fair amount of rate controlling medications (diltiazem 360 mg daily and metoprolol succinate 200 mg daily) and I do not know that going up on these would have made much difference. My thought would be continue these medications for now and see how he does when he is not acutely ill. Based on symptoms he does not have a lot of episodes. (2) Anticoagulation management encounter: The role of anticoagulation is uncertain. His DFF1KT3-OYWa score is 1 for hypertension, but with very infrequent relatively brief episodes his stroke risk may even be lower than normally predicted by the [id number] scoring system. As such long-term anticoagulation may not be indicated. Short-term anti coagulation (over the next several months perhaps) may be reasonable to make sure he does not have frequent recurrences while he is recovering from his Covid infection. History of Present Illness Attending Physician: Amari Cruz MD History of Present Illness This is a 64-year-old male with a history of hypertension, hyperlipidemia and obesity as well as a history of tachycardia. He has had tachycardia for several years, it was paroxysmal and the mechanism was uncertain. I believe it had been presumed to be a paroxysmal supraventricular tachycardia of some type, however it was never documented until a hospital admission in mid August 2016. He was feeling poorly (unrelated to his heart rate) and presented to an urgent care center where he had an elevated heart rate. An electrocardiogram demonstrated atrial flutter with 2-1 AV conduction and he was transferred to the emergency room. Initial treatment included metoprolol and IV diltiazem, left ventricular function was normal and he spontaneously converted to sinus rhythm. He also has left bundle branch block (with a negative Lyme screen). He had been on Norvasc and metoprolol for hypertension, his calcium javi was switched to diltiazem for additional rate control during his atrial arrhythmias. With symptoms of ongoing dyspnea on exertion I repeated his echocardiogram on May 03, 2017, this showed low normal left ventricular function with mild left ventricular hypertrophy. I also had a nuclear stress test done (due to his intraventricular conduction abnormality), it was a Lexiscan pharmacologic study. His ejection fraction was normal and there was no evidence of infarction or ischemia. Another echocardiogram done May 22, 2018 showed normal left ventricular size and function with an ejection fraction of 55 to 60%. This was similar on repeat study June 12, 2019. He noted at his June 11, 2020 visit that he was having progressive dyspnea on exertion. Although he had gained weight and was probably deconditioned due to lack of activity I want to make sure there was not some progressive cardiac cause. An echocardiogram done that day showed normal left ventricular systolic function with mild concentric left ventricular hypertrophy and no valvular abnormality. I also scheduled a stress test which was done July 09, 2020. I was not sure what test to do because I wanted exercise information and a stress echo would not be very helpful due to his left bundle branch block. I therefore scheduled this as a stress ECG. He did not exercise very well but he did exercise for 4-1/2 minutes and did achieve 82% of his maximal predicted heart rate. It was stopped for shortness of breath not chest discomfort. His blood pressure response was normal. I therefore scheduled a Lexiscan Cardiolite stress test to look for ischemia on August 22, 2020, this was negative for ischemia. He has continued to have dyspnea on exertion, he does describe this as being quite intermittent which is hard to explain based on an underlying pulmonary pathology or an underlying cardiac pathology. He presents now with palpitations and shortness of breath in the setting of flulike symptoms starting about 5 days ago. His symptoms included chills, fever and achiness. He did test positive for COVID-19 on 10/13/2020. He then noticed that his heart was beating rapidly on the evening of 10/13/2020 and he had some tightness in his chest and felt short of breath as well as some diaphoresis and nausea. He came into the emergency room on 10/14/2020 and was noted to be in a rapid supraventricular tachycardia. His presenting electrocardiogram showed probable atrial flutter although the rate is fast, the rate was 172 bpm and very regular. When slowed down shortly after presentation flutter waves are visible and probably explain his presenting regular rhythm. At home we had maintained him on diltiazem 240 mg daily and metoprolol succinate 200 mg daily. He had not been maintained on an anticoagulant with a [id number] score of 1 (hypertension). He was treated with intravenous diltiazem which did bring his rate under control. He then converted spontaneously to sinus rhythm at about 4:30 AM on October 15, 2020. He was therefore in atrial fibrillation for somewhere around 36 hours. I did not personally evaluate him as he is in the Covid unit, and I recently saw him on September 25, 2020. Allergies Allergy/AdvReac Type Severity Reaction Status Date / Time No Known Drug Allergies Allergy NKDA Verified 10/14/20 16:30 Home Medications Medication Instructions Recorded Confirmed Type potassium chloride 10 mEq 10 meq PO DAILY #90 tab 09/17/19 10/14/20 Rx tablet,extended release amoxicillin 500 mg capsule 2,000 mg PO .BEFORE DENTIST PRN 12/31/19 10/14/20 History cap allopurinol 300 mg tablet 300 mg PO QPM #90 tab 04/21/20 10/14/20 Rx hydrochlorothiazide 50 mg tablet 50 mg PO DAILY #90 tab 05/26/20 10/14/20 Rx metformin 500 mg tablet 500 mg PO BID #180 tab 05/26/20 10/14/20 Rx tamsulosin 0.4 mg capsule 0.4 mg PO HS #90 cap 05/26/20 10/14/20 Rx diltiazem HCl 240 mg capsule,24 240 mg PO DAILY #90 cap 08/06/20 10/14/20 Rx hr,extended release acetaminophen [Tylenol Extra 1,000 mg PO Q6H PRN 10/14/20 10/14/20 History Strength] metoprolol succinate 200 mg PO QPM 10/14/20 10/14/20 History vitamin A-vitamin C-vit E-min 1 tab PO DAILY 10/14/20 10/14/20 History [Ocuvite] Patient History Medical History (Updated 10/15/20 @ 12:38 by Misael Crespo MD) Arthritis Atrial fibrillation NO CURRENT PROBLEMS Atrial fibrillation with RVR Atrial fibrillation, currently in sinus rhythm BMI 45.0-49.9, adult Dyslipidemia Dyspnea on exertion Gout Hepatic steatosis Hyperlipidemia Hyperlipidemia Hypertension Impaired fasting glucose Impingement syndrome of left shoulder Kidney stones OPEN PROCEDURE TO REMOVE STONE AT AGE 21 Left bundle branch block (LBBB) Lymphadenopathy Osteoarthritis PSVT (paroxysmal supraventricular tachycardia) Skin depigmentation Skin tag Ureteral stone Vision problem Surgical History History of anesthesia reaction PT VERBALIZED FEELING FLU-LIKE ALL OVER AFTER ANESTHESIA History of cholecystectomy History of cholecystectomy History of lithotripsy MULTIPLE X'S History of postoperative nausea and vomiting History of repair of rotator cuff LEFT History of tonsillectomy History of tooth extraction History of total knee replacement RT Family History Mother Diabetes Hypertension Kidney stones Father Kidney stones Hypertension Denies family history of Ovarian cancer Prostate cancer Myocardial infarction Breast cancer Colorectal cancer Social History Smoking Status: Former smoker Tobacco Type: Cigars Age Started Using Tobacco: 16; Age Quit Using Tobacco: 57; Cigarettes Per Day: 10 cigars; Smoking End Date: 2017; Second Hand Exposure: No; Hx Alcohol Use: Yes Alcohol type: beer Alcohol Intake Frequency: 4 or More x per/Week Hx Substance Use: No Preferred Language: Egyptian Communication Ability: Effective Visual Impairment: No Limitations Hearing Ability: Normal Day Care Provider Required: No Beliefs That Will Affect Care: None marital status: Single Current Living Situation: Alone current occupational status: employed Other Information That Helps Us Care for You: No Feels Safe at Home: Yes Safety Concerns: Feels Safe At This Time Childhood Exposure to Second-Hand Smoke: No caffeine: Yes (coffee x 20 ounces per day.) during the past year weight has: remained stable Dental Care, Regularly: Yes Physical Activity Frequency: Does not Exercise Physical Activity Frequency Comment: due to covid Seatbelt Use: always Sunscreen Use: No Assistive Devices: None Physical Exam Physical Exam: I did not examine him as he was in the COVID-19 unit. Results & Data ([facility]) Vital Signs (Past 12 Hours) Vital Signs Temp Pulse Pulse Resp BP Pulse Ox Pulse Ox 10/15/20 08:45 96 H 112/75 10/15/20 08:00 87 10/15/20 07:40 37.0 C 68 20 96/67 L 97 10/15/20 04:00 36.8 C 90 20 89/64 L 92 10/15/20 00:14 88 10/14/20 22:54 37.0 C 80 17 90/57 L 92 10/14/20 22:17 94 Laboratory Results Cardiac Enzymes 10/14/20 10/15/20 Range/Units 15:00 06:48 AST 60 H 47 H (15-37) U/L Troponin I 0.032 (0-0.045) ng/ml Coagulation 10/14/20 Range/Units 15:00 PT 10.8 (9.0-12.0) Seconds APTT 28.8 (21.0-31.0) Seconds CBC 10/14/20 10/15/20 Range/Units 15:00 06:48 WBC 8.16 6.50 (4.8-10.8) K/uL RBC 5.72 4.95 (4.7-6.1) M/uL Hgb 19.3 H 16.3 D (14.0-18.0) g/dL Hct 52.8 H 45.9 (42-52) % Plt Count 200 145 (130-400) K/uL Neut # (Auto) 5.79 4.68 (1.4-6.5) K/uL Lymph # (Auto) 1.16 L 0.98 L (1.2-3.4) K/uL Yell # (Auto) 1.15 H 0.80 H (0.11-0.59) K/uL Eos # (Auto) 0.00 0.00 (0-0.5) K/uL Baso # (Auto) 0.01 0.01 (0-0.2) K/uL Comprehensive Metabolic Panel 10/14/20 10/15/20 Range/Units 15:00 06:48 Sodium 134 L 137 (136-145) mmol/L Potassium 3.4 L 3.6 (3.5-5.1) mmol/L Chloride 100 103 (98-107) mmol/L Carbon Dioxide 25 27 (21-32) mmol/L BUN 38 H 28 H (7-18) mg/dl Creatinine 1.68 H 1.19 D (0.6-1.4) mg/dl Glucose 123 H 98 (70-99) mg/dl Calcium 9.2 8.8 (8.5-10.1) mg/dl AST 60 H 47 H (15-37) U/L ALT 116 H 87 H (12-78) U/L Alkaline Phosphatase 72 58 (45-117) U/L Total Protein 8.2 6.8 (6.4-8.2) gm/dl Albumin 3.7 3.0 L (3.4-5.0) gm/dl Intake and Output 10/14/20 10/15/20 10/15/20 22:59 06:59 14:59 Intake Total 2079.750 / 2994.833 915.083 / 2994.833 0 / 0 Output Total 350 / 850 500 / 850 500 / 500 Balance 1729.750 / 2144.833 415.083 / 2144.833 -500 / -500 Intake: IV 2079.750 / 2744.833 665.083 / 2744.833 0 / 0 Calcium Gluconate 10% 2,000 mg 70 / 70 In Sodium Chloride 0.9% 50 ml @ 240 mls/hr IV NOW ONE Rx#: [id number] Lactated Ringer's 1,000 ml @ 1000 / 1000 999 mls/hr IV .Q1H1M [facility] Rx#: [id number] Magnesium Sulfate / D5w 1 gm In 100 / 100 100 ml @ 50 mls/hr IV ONE ONE Rx#:[id number] Potassium Chloride / Wtr 10 meq 400 / 400 In 100 ml @ 100 mls/hr IV Q1H [facility] Rx#:[id number] Sodium Chloride 0.9% 1000ML 1, 1000 / 1000 000 ml @ 999 mls/hr IV .Q1H1M [facility] Rx#:[id number] dilTIAZem HCL 125 mg In 9.750 / 174.833 165.083 / 174.833 0 / 0 Dextrose 5% 100 ml @ 5 MG/HR 5 mls/hr IV .Q24H [facility] Rx#: [id number] Oral 250 / 250 Output: Urine 350 / 850 500 / 850 500 / 500 Other: Weight 116.6 kg 116.9 kg Weight Measurement Method Standing Scale Standing Scale Diagnostic Findings Telemetry: Atrial fibrillation from presentation until around 430 this morning when he converted to sinus rhythm. PG Care Time/CCT Total # of Minutes Spent Total Time Spent with Patient: Total time spent is greater than 50% in coordination of care (as documented) at patient's floor/unit and/or counseling patient: Coding Level of Care Code 58577 Inpt Consult Level 4 Diagnoses Atrial flutter, paroxysmal I48.92 Anticoagulation management encounter Z51.81; Z79.01
--- NOTE | 2020-10-15 11:41 | Electrocardiogram Report ---
Test Reason : Blood Pressure : / mmHG Vent. Rate : 093 BPM Atrial Rate : 093 BPM P-R Int : 172 ms QRS Dur : 160 ms QT Int : 396 ms P-R-T Axes : 054 -15 152 degrees QTc Int : 492 ms Sinus rhythm with Premature atrial complexes Possible Left atrial enlargement Left bundle branch block Abnormal ECG When compared with ECG of 14-OCT-2020 14:59, Premature atrial complexes are now Present Vent. rate has decreased BY 79 BPM T wave amplitude has decreased in Inferior leads Confirmed by Misael Crespo ([id number]) on 10/15/2020 11:41:07 AM Referred By: Franco Valdez Confirmed By:Misael Crespo
[2020-10-15] MEDS: METOPROLOL TARTRATE 50 MG TAB PO SCH (20:31)
[2020-10-15] MEDS: TAMSULOSIN HCL 0.4 MG CAP PO SCH (20:32)
[2020-10-16] MEDS: INSULIN ASPART 100 UNITS/ML 3 ML PEN SC SCH ×4 (08:00→20:09)
[2020-10-16] MEDS: APIXABAN 5 MG TABLET PO SCH ×2 (08:24→20:16)
[2020-10-16] MEDS: METOPROLOL TARTRATE 50 MG TAB PO SCH ×2 (08:24→20:16)
[2020-10-16] MEDS: dilTIAZem ER 120 MG CAPCR PO SCH (08:24)
--- NOTE | 2020-10-16 09:51 | Cardiology Progress Note ---
Date of Service October 16, 2020 Assessment & Plan (1) Atrial flutter, paroxysmal: He presented with a very rapid regular rhythm which is almost certainly atrial flutter with 2-1 AV conduction. When his rate slowed down flutter waves could be seen and are faster than the typical 300 bpm. Still it is likely typical atrial flutter although I cannot be certain. The rapid conduction may have been due to catecholamine excess due to his acute presentation. He does not have frequent episodes of the arrhythmia however this one did last 36 hours. He is on a fair amount of rate controlling medications (diltiazem 360 mg daily and metoprolol succinate 200 mg daily) and I do not know that going up on these would have made much difference. My thought would be continue these medications for now and see how he does when he is not acutely ill. He is currently on reduced doses of these medications, consider increasing them while he is here in the hospital if his vital signs will tolerate it. Based on outpatient symptoms he does not have a lot of episodes. (2) Anticoagulation management encounter: The role of anticoagulation is uncertain. His EEH2YV2-SNIu score is 1 for hypertension, but with very infrequent relatively brief episodes his stroke risk may even be lower than normally predicted by the [id number] scoring system. As such long-term anticoagulation may not be indicated. Short-term anticoagulation (over the next several months perhaps) may be reasonable to make sure he does not have frequent recurrences while he is recovering from his Covid infection. I agree with the use of Eliquis. Admission and Anticipated Discharge Date Admission Date: October 14, 2020 Subjective I did not interview the patient as he is in the Covid unit Physical Exam Physical Exam: I did not examine him as he was in the COVID-19 unit. Results & Data ([facility]) Vital Signs (Past 12 Hours) Vital Signs Temp Pulse Pulse Resp BP Pulse Ox 10/16/20 08:00 87 10/16/20 07:18 37.4 C 85 20 123/74 93 10/16/20 04:01 37.1 C 82 20 98/62 L 93 10/15/20 23:26 88 10/15/20 22:30 37.5 C 87 20 119/72 92 Laboratory Results Intake and Output 10/15/20 10/16/20 10/16/20 22:59 06:59 14:59 Intake Total 1460 / 1640 180 / 1640 Output Total 950 / 1650 450 / 450 Balance 510 / -10 180 / -10 -450 / -450 Intake: Oral 1460 / 1640 180 / 1640 Output: Urine 950 / 1650 450 / 450 Other: Weight 116.6 kg Diagnostic Findings Telemetry monitoring: Sinus rhythm rate 80-100, PVCs. No atrial arrhythmias. PG Care Time/CCT Total # of Minutes Spent Total Time Spent with Patient: Total time spent is greater than 50% in coordination of care (as documented) at patient's floor/unit and/or counseling patient: Coding Level of Care Code 11158 Subseq Hosp Care Lvl 2 Diagnoses Atrial flutter, paroxysmal I48.92 Anticoagulation management encounter Z51.81; Z79.01
[2020-10-16] MEDS: ACETAMINOPHEN 325 MG TAB PO PRN (13:45)
[2020-10-16] MEDS ORDERED: LACTATED RINGER'S 1,000 ML IV SCH (18:00)
--- NOTE | 2020-10-16 18:03 | Hospitalist Progress Note ---
Date of Service October 16, 2020 Assessment & Plan (1) COVID-19: COVID 19 - day #5 remains without hypoxia - Organ dysfunction with HUSSAIN resolving with IV fluid - Steroids if he becomes hypoxic - - With initial HUSSAIN did hold on remdesivir- now with mild hypoxia if continues to be hypoxic will consider 10/17 - Lactate 2.8 repeat pending - Blood cultures negative to date. -CRP is elevated but only 1.89, procalcitonin is negative will check stool cultures and C Diff 10/16/20 (2) Atrial flutter, paroxysmal: Patient states he has not had any difficulties since about 3 years ago. He is on Diltiazem 240 XR and Toprol XR 200 - His ECG support and was in NSR as recently as 2 weeks ago. - CHADS VASC- 2 - will place on Eliquis 5 mg BID which patient is agreeable to now as he is actively in atrial flutter and has Covid, but declines any long-term anticoagulation - Continue with electrolyte replacement- CA, MG, K -Patient continues on Cardizem p.o. his metoprolol dose will be reduced this is a fairly large dose of 200 at bedtime this will be down to 50 tartrate twice daily starting in the evening of 10/15 bp lower bu asymptomatic and no issues with RVR (3) Dyslipidemia: Triglycerides in Jul 385, LDL 75, HDL 29 - not on statin as outpatient - Was doing diet- but has been gaining weight with less activity with COVID (4) Hypertension: Controlled, if low, continue to hold diuretics at this time initiating metoprolol the evening of 10/15, since continued diarrhea will give ivf overnight 10/16 (5) Hypovolemia: - Has multiple sources of free water loss, with diarrhea, fevers with sweats, and decreased PO intake- - HUSSAIN-resolved - Hemoconcentrated - additional fluids 10/16 (6) CKD (chronic kidney disease), stage III: CKD III with HUSSAIN stage II - Pre-renal likely as above, aggravated with diuretic use-improved - (7) DMII (diabetes mellitus, type 2): Hold Metformin - SSI coverage (8) Left bundle branch block (LBBB): Baseline not new - continue to follow Recent echocardiogram with preserved EF and recent nuclear stress test normal (9) Hypokalemia: Replaced with oral potassium chloride (10) Nephrolithiasis: Has long history of both uric acid and calcium oxalate stones, passed a stone recently and feels like he is passing another 1 Follow for worsening renal function (11) Obesity (BMI 35.0-39.9 without comorbidity): Continue with weight loss and activity (12) DVT prophylaxis: DVT: SCD's, Eliquis CODE: Full Admission and Anticipated Discharge Date Admission Date: October 14, 2020 Subjective the states he still feels sick and has chills with low grade fevers, still with diarrhea Review of Systems Review of Systems: Mild distress and fatigue no headache, blurry or double vision no speech or swallowing issues very poor appetite no chest pain, pressure or palpitations no shortness of breath, cough or wheezes Family abdominal pain and diarrhea no dysuria, hematuria or frequency no focal joint pain or swelling no back pain, CVA tenderness or radicular pain no bruising, bleeding or rashes no focal signs of weakness or numbness or altered sensation no complaints of anxiety or depression.. Physical Exam Physical Exam: The patient appeared well nourished and normally developed. He is fatigued weak and tired Vital signs as documented. Head exam is normocephalic atraumatic Neck is without JVD, thyromegaly, or carotid bruits. Lungs are clear to auscultation, no focal loss of breath sounds Cardiac exam, Rhythm is regular.. No murmurs, rubs or gallops. Abdominal exam reveals hyperactive bowel sounds soft mildly distended tympanic Extremities are nonedematous and both pedal pulses are present Neurologic exam is alert and oriented, no focal loss of strength or sensation Skin is without bruises or rashes Psychologically is without concerns for anxiety or depression Results & Data Results & Data ([facility]) Vital Signs (Past 12 Hours) Vital Signs Temp Pulse Pulse Resp BP Pulse Ox 10/16/20 15:28 99.1 F 72 20 90/57 L 91 10/16/20 15:00 99.1 F 10/16/20 13:49 99.9 F H 10/16/20 11:50 99.9 F H 66 20 93/64 L 90 10/16/20 08:00 87 10/16/20 07:18 99.3 F 85 20 123/74 93 PG Care Time/CCT Total # of Minutes Spent Total Time Spent with Patient: Total time spent is greater than 50% in coordination of care (as documented) at patient's floor/unit and/or counseling patient: Coding Level of Care Code 22680 Subseq Hosp Care Lvl 3 Diagnoses COVID-19 U07.1 Atrial flutter, paroxysmal I48.92 Dyslipidemia E78.5 Hypertension I10 Hypertension type: essential hypertension Hypovolemia E86.1 CKD (chronic kidney disease), stage III N18.32 Chronic kidney disease stage 3 subtype: stage 3b (GFR 30-44) DMII (diabetes mellitus, type 2) E11.9; Z79.4 Diabetes mellitus assisted insulin use: with assisted use Diabetes mellitus complication status: without complication Left bundle branch block (LBBB) I44.7 Hypokalemia E87.6 Nephrolithiasis N20.0 Obesity (BMI 35.0-39.9 without comorbidity) E66.9 DVT prophylaxis Z29.9 (1) Hypertension Hypertension type: essential hypertension Qualified Code(s): I10 - Essential (primary) hypertension (2) CKD (chronic kidney disease), stage III Chronic kidney disease stage 3 subtype: stage 3b (GFR 30-44) Qualified Code(s): N18.32 - Chronic kidney disease, stage 3b (3) DMII (diabetes mellitus, type 2) Diabetes mellitus long wall mining machine tender insulin use: with long wall mining machine tender use Diabetes mellitus complication status: without complication Qualified Code(s): E11.9 - Type 2 diabetes mellitus without complications; Z79.4 - custodial (current) use of insulin
[2020-10-16] MEDS: TAMSULOSIN HCL 0.4 MG CAP PO SCH (20:16)
[2020-10-17] MEDS: dilTIAZem ER 120 MG CAPCR PO SCH (08:21)
[2020-10-17] MEDS: APIXABAN 5 MG TABLET PO SCH ×2 (08:21→19:55)
[2020-10-17] MEDS: METOPROLOL TARTRATE 50 MG TAB PO SCH ×2 (08:21→19:56)
[2020-10-17] MEDS: INSULIN ASPART 100 UNITS/ML 3 ML PEN SC SCH ×4 (08:46→20:50)
[2020-10-17 09:07] LABS: Hematocrit (blood only) 44.7 % (42-52); Hemoglobin 15.8 g/dL (14.0-18.0); Mean Corpuscular Hemoglobin 33.2 pg (25-34); Mean Corpuscular Hgb Conc 35.3 g/dL (32-36); Mean Corpuscular Volume 93.9 fL (80-100); Mean Platelet Volume 9.4 fL (7.4-10.4); Platelet Count 167 K/uL (130-400); RDW Coefficient of Variation 12.8 % (11.5-14.5); Red Blood Count 4.76 M/uL (4.7-6.1); White Blood Count 6.92 K/uL (4.8-10.8)
[2020-10-17 09:42] LABS: BUN Creatinine Ratio 14.1 (10-20); C Reactive Protein 6.67 mg/dl (0-0.29); Calcium 8.9 mg/dl (8.5-10.1); Creatinine Clr Calc Pharmacy 87.4 ml/min; Est GFR (African American) 91.3; Est GFR (Non-African American) 78.8; Potassium 3.4 mmol/L (3.5-5.1)
--- NOTE | 2020-10-17 09:53 | XRay Report ---
XR chest 1V portable CLINICAL HISTORY: Fever cough and shortness of breath COMPARISON STUDY: 10/14/2020 FINDINGS: There is slight progression in the multifocal bilateral pulmonary airspace opacities with a peripheral predominance. The findings are suspicious for a multifocal pneumonia. The heart is mildly enlarged. There is no failure. There are no large pleural effusions.[ IMPRESSION: Progressive bilateral airspace opacities consistent with a worsening multifocal pneumonia ACT 112: Negative or not required by law. Electronically signed by: Surinder Solo M.D. 10/17/2020 9:52 AM
[2020-10-17] MEDS ORDERED: REMDESIVIR 200 MG in SODIUM CHLORIDE 0.9% 210 ML IV STA (13:44)
[2020-10-17] MEDS: SODIUM CHLORIDE 0.9% 10ML FLUSH IV SCH (17:21)
--- NOTE | 2020-10-17 18:41 | Hospitalist Progress Note ---
Date of Service October 17, 2020 Assessment & Plan (1) COVID-19: COVID 19 - day #5 remains without hypoxia - Organ dysfunction with HUSSAIN resolving with IV fluid -low level hypoxia and some progressive cxr changes with low grade fevers and climbing CRP - - With initial HUSSAIN did hold on remdesivir- now with mild hypoxia if continues to be hypoxic will consider 10/17 - Lactate 2.8 repeat pending - Blood cultures negative to date. -CRP climbing , procalcitonin is negative unable to check stools as no diarrhea (2) Atrial flutter, paroxysmal: Patient states he has not had any difficulties since about 3 years ago. He is on Diltiazem 240 XR and Toprol XR 200 - His ECG support and was in NSR as recently as 2 weeks ago. - CHADS VASC- 2 - will place on Eliquis 5 mg BID which patient is agreeable to now as he is actively in atrial flutter and has Covid, but declines any long-term anticoagulation - Continue with electrolyte replacement- CA, MG, K -Patient continues on Cardizem p.o. his metoprolol dose will be reduced this is a fairly large dose of 200 at bedtime this will be down to 50 tartrate twice daily starting in the evening of 10/15 bp lower but asymptomatic and no issues with RVR (3) Dyslipidemia: Triglycerides in Jul 385, LDL 75, HDL 29 - not on statin as outpatient - Was doing diet- but has been gaining weight with less activity with COVID (4) Hypertension: Controlled, if low, continue to hold diuretics at this time initiating metoprolol the evening of 10/15, since continued diarrhea will give ivf overnight 10/16 (5) Hypovolemia: - Has multiple sources of free water loss, with diarrhea, fevers with sweats, and decreased PO intake- - HUSSAIN-resolved - Hemoconcentrated - additional fluids 10/16 (6) CKD (chronic kidney disease), stage III: CKD III with HUSSAIN stage II - Pre-renal likely as above, aggravated with diuretic use-improved - (7) DMII (diabetes mellitus, type 2): Hold Metformin - SSI coverage (8) Left bundle branch block (LBBB): Baseline not new - continue to follow Recent echocardiogram with preserved EF and recent nuclear stress test normal (9) Hypokalemia: Replaced with oral potassium chloride (10) Nephrolithiasis: Has long history of both uric acid and calcium oxalate stones, passed a stone recently and feels like he is passing another 1 Follow for worsening renal function (11) Obesity (BMI 35.0-39.9 without comorbidity): Continue with weight loss and activity (12) DVT prophylaxis: DVT: SCD's, Eliquis CODE: Full Admission and Anticipated Discharge Date Admission Date: October 14, 2020 Subjective the states he still feels sick and has chills with low grade fevers, resolved diarrhea with some lower oxyen saturations and worsening cxr Review of Systems Review of Systems: Mild distress and fatigue no headache, blurry or double vision no speech or swallowing issues very poor appetite no chest pain, pressure or palpitations feels short of breath closed circuit screen watcher cough resolved abdominal pain and diarrhea no dysuria, hematuria or frequency no focal joint pain or swelling no back pain, CVA tenderness or radicular pain no bruising, bleeding or rashes no focal signs of weakness or numbness or altered sensation no complaints of anxiety or depression.. Physical Exam Physical Exam: The patient appeared well nourished and normally developed. He is fatigued weak and tired Vital signs as documented. Head exam is normocephalic atraumatic Neck is without JVD, thyromegaly, or carotid bruits. Lungs are coarse and distant b/l no rales Cardiac exam, Rhythm is regular.. No murmurs, rubs or gallops. Abdominal exam reveals hyperactive bowel sounds soft non tender Extremities are nonedematous and both pedal pulses are present Neurologic exam is alert and oriented, no focal loss of strength or sensation Skin is without bruises or rashes Psychologically is without concerns for anxiety or depression Results & Data Results & Data ([facility]) Vital Signs (Past 12 Hours) Vital Signs Temp Pulse Resp BP Pulse Ox 10/17/20 16:04 98.8 F 68 18 111/71 91 10/17/20 11:50 98.6 F 73 18 105/69 91 10/17/20 07:53 98.8 F 71 20 116/75 92 PG Care Time/CCT Total # of Minutes Spent Total Time Spent with Patient: Total time spent is greater than 50% in coordination of care (as documented) at patient's floor/unit and/or counseling patient: Coding Level of Care Code 99167 Subseq Hosp Care Lvl 3 Diagnoses COVID-19 U07.1 Atrial flutter, paroxysmal I48.92 Dyslipidemia E78.5 Hypertension I10 Hypertension type: essential hypertension Hypovolemia E86.1 CKD (chronic kidney disease), stage III N18.32 Chronic kidney disease stage 3 subtype: stage 3b (GFR 30-44) DMII (diabetes mellitus, type 2) E11.9; Z79.4 Diabetes mellitus polymer scientist insulin use: with polymer scientist use Diabetes mellitus complication status: without complication Left bundle branch block (LBBB) I44.7 Hypokalemia E87.6 Nephrolithiasis N20.0 Obesity (BMI 35.0-39.9 without comorbidity) E66.9 DVT prophylaxis Z29.9 (1) Hypertension Hypertension type: essential hypertension Qualified Code(s): I10 - Essential (primary) hypertension (2) CKD (chronic kidney disease), stage III Chronic kidney disease stage 3 subtype: stage 3b (GFR 30-44) Qualified Code(s): N18.32 - Chronic kidney disease, stage 3b (3) DMII (diabetes mellitus, type 2) Diabetes mellitus mcfp insulin use: with mcfp use Diabetes mellitus complication status: without complication Qualified Code(s): E11.9 - Type 2 diabetes mellitus without complications; Z79.4 - FDC (current) use of insulin
[2020-10-17] MEDS: dexAMETHasone 6 MG in SYRINGE 0 ML IV SCH (19:51)
[2020-10-17] MEDS: TAMSULOSIN HCL 0.4 MG CAP PO SCH (19:56)
[2020-10-18] MEDS ORDERED: POTASSIUM CHLORIDE CRTAB 20 MEQ TABCR PO STA (07:13)
[2020-10-18] MEDS: APIXABAN 5 MG TABLET PO SCH ×2 (08:24→20:39)
[2020-10-18] MEDS: dilTIAZem ER 120 MG CAPCR PO SCH (08:24)
[2020-10-18] MEDS: METOPROLOL TARTRATE 50 MG TAB PO SCH ×2 (08:24→20:39)
[2020-10-18] MEDS: INSULIN ASPART 100 UNITS/ML 3 ML PEN SC SCH ×4 (08:56→20:34)
[2020-10-18] MEDS ORDERED: REMDESIVIR 100 MG in SODIUM CHLORIDE 0.9% 230 ML IV SCH (12:00)
[2020-10-18] MEDS: SODIUM CHLORIDE 0.9% 10ML FLUSH IV SCH (13:46)
--- NOTE | 2020-10-18 13:55 | Hospitalist Progress Note ---
Date of Service October 18, 2020 Assessment & Plan (1) COVID-19: COVID 19 -never less than 90, but with decrease - Organ dysfunction with HUSSAIN resolved with IV fluid -low level hypoxia and some progressive cxr changes with low grade fevers and climbing CRP as renal function improved did have remdesivir and dexamethasone started 10/17 - Blood cultures negative to date. -CRP climbing , procalcitonin is negative unable to check stools as no diarrhea if pt continues to improve and has no worsening will consider discharging in 24 hours (2) Atrial flutter, paroxysmal: Patient states he has not had any difficulties since about 3 years ago. He is on Diltiazem 240 XR and Toprol XR 200 - His ECG support and was in NSR as recently as 2 weeks ago. - CHADS VASC- 2 -Patient continues on Cardizem p.o. his metoprolol dose will be reduced this is a fairly large dose of 200 at bedtime this will be down to 50 tartrate twice daily starting in the evening of 10/15 bp lower but asymptomatic and no issues with RVR (3) Dyslipidemia: Triglycerides in Jul 385, LDL 75, HDL 29 - not on statin as outpatient - Was doing diet- but has been gaining weight with less activity with COVID (4) Hypertension: Controlled, if low, continue to hold diuretics at this time initiating metoprolol the evening of 10/15, since continued diarrhea will give ivf overnight 10/16 (5) Hypovolemia: - Has multiple sources of free water loss, with diarrhea, fevers with sweats, and decreased PO intake- - HUSSAIN-resolved - Hemoconcentrated - additional fluids 10/16 (6) CKD (chronic kidney disease), stage III: CKD III with HUSSAIN stage II - Pre-renal likely as above, aggravated with diuretic use-improved - (7) DMII (diabetes mellitus, type 2): Hold Metformin - SSI coverage (8) Left bundle branch block (LBBB): Baseline not new - continue to follow Recent echocardiogram with preserved EF and recent nuclear stress test normal (9) Hypokalemia: Replaced with oral potassium chloride (10) Nephrolithiasis: Has long history of both uric acid and calcium oxalate stones, passed a stone recently and feels like he is passing another 1 Follow for worsening renal function (11) Obesity (BMI 35.0-39.9 without comorbidity): Continue with weight loss and activity (12) DVT prophylaxis: DVT: SCD's, [place] CODE: Full Admission and Anticipated Discharge Date Admission Date: October 14, 2020 Subjective the states he feels improved did have some sweats lasts night, but not resolved, resolved diarrhea with some lower oxyen saturations and worsening cxr Review of Systems Review of Systems: Mild distress and fatigue no headache, blurry or double vision no speech or swallowing issues very poor appetite no chest pain, pressure or palpitations still feels short of breath box liner cough resolved abdominal pain and diarrhea no dysuria, hematuria or frequency no focal joint pain or swelling no back pain, CVA tenderness or radicular pain no bruising, bleeding or rashes no focal signs of weakness or numbness or altered sensation no complaints of anxiety or depression.. Physical Exam Physical Exam: The patient appeared well nourished and normally developed. He is fatigued weak and tired Vital signs as documented. Head exam is normocephalic atraumatic Neck is without JVD, thyromegaly, or carotid bruits. Lungs are coarse and distant b/l no rales Cardiac exam, Rhythm is regular.. No murmurs, rubs or gallops. Abdominal exam reveals hyperactive bowel sounds soft non tender Extremities are nonedematous and both pedal pulses are present Neurologic exam is alert and oriented, no focal loss of strength or sensation Skin is without bruises or rashes Psychologically is without concerns for anxiety or depression Results & Data Results & Data ([facility]) Vital Signs (Past 12 Hours) Vital Signs Temp Pulse Resp BP Pulse Ox 10/18/20 11:15 98.2 F 66 18 151/89 H 93 10/18/20 08:08 97.9 F 69 20 121/79 94 10/18/20 03:34 97.9 F 71 20 122/81 92 PG Care Time/CCT Total # of Minutes Spent Total Time Spent with Patient: Total time spent is greater than 50% in coordination of care (as documented) at patient's floor/unit and/or counseling patient: Coding Level of Care Code 42172 Subseq Hosp Care Lvl 3 Diagnoses COVID-19 U07.1 Atrial flutter, paroxysmal I48.92 Dyslipidemia E78.5 Hypertension I10 Hypertension type: essential hypertension Hypovolemia E86.1 CKD (chronic kidney disease), stage III N18.32 Chronic kidney disease stage 3 subtype: stage 3b (GFR 30-44) DMII (diabetes mellitus, type 2) E11.9; Z79.4 Diabetes mellitus alf insulin use: with rat exterminator use Diabetes mellitus complication status: without complication Left bundle branch block (LBBB) I44.7 Hypokalemia E87.6 Nephrolithiasis N20.0 Obesity (BMI 35.0-39.9 without comorbidity) E66.9 DVT prophylaxis Z29.9 (1) Hypertension Hypertension type: essential hypertension Qualified Code(s): I10 - Essential (primary) hypertension (2) CKD (chronic kidney disease), stage III Chronic kidney disease stage 3 subtype: stage 3b (GFR 30-44) Qualified Code(s): N18.32 - Chronic kidney disease, stage 3b (3) DMII (diabetes mellitus, type 2) Diabetes mellitus alf insulin use: with rat exterminator use Diabetes mellitus complication status: without complication Qualified Code(s): E11.9 - Type 2 diabetes mellitus without complications; Z79.4 - care home (current) use of insulin
[2020-10-18] MEDS: dexAMETHasone 6 MG in SYRINGE 0 ML IV SCH (19:54)
[2020-10-18] MEDS: TAMSULOSIN HCL 0.4 MG CAP PO SCH (20:39)
[2020-10-19] MEDS: dilTIAZem ER 120 MG CAPCR PO SCH (08:28)
[2020-10-19] MEDS: METOPROLOL TARTRATE 50 MG TAB PO SCH (08:28)
[2020-10-19] MEDS: APIXABAN 5 MG TABLET PO SCH (08:28)
[2020-10-19] MEDS: INSULIN ASPART 100 UNITS/ML 3 ML PEN SC SCH ×2 (08:30→12:19)
--- NOTE | 2020-10-19 15:46 | Discharge Summary ---
Date of Service October 19, 2020 Admission HPI Per Admitting Provider 64 YOM with past medical history of obesity, DMII, HTN, paroxysmal Aflutter (has proven NSR and is not on anticoagulation), LBBB, HLD, nephrolithiasis (passed urinary stone last week), CKD. Patient comes to the emergency room today for increase in HR. He was diagnosed on Tuesday with COVID from urgent care. He originally started feeling ill on Tuesday with headache and fevers. On Tuesday, he went and got tested. Tuesday he continued with fevers up to reported 102 and started with chills and night sweats that were accompanied by diarrhea. He eats and 30 min later he has to go to the bathroom. The diarrhea is mostly water and is brown yellow in color. He has decreased his oral intake due to this as well, and he reports that his urine volumes have been small and dark in color. He would be day 5 of COVID 19 at this point. In the ER he was noted to be tachycardic with HR 150-170 QRS 0.13, regular rhythm. He was given diltiazem bolus which decreased his HR and was then placed on Diltiazem drip. After his heart rate slowed down, he was noted to be in atrial flutter. He reports he took all his medications today. He is not hypoxic or having any chest discomfort or tightness, no dyspnea, and mild no nproductive cough. He will be admitted to COVID unit, continue with diltiazem drip, and rehydrate orally and give 1 Liter LR bolus. He is now in aflutter with variable rate and variable conduction. CHADVSVASC 2: 2. Anticoagulation was discussed with the patient by Dr. Fernandez, patient was given options and risks and benefits with VKA vs. DOAC vs. None. To include bleeding risks with each agent. With his COVID and Aflutter his risk is increased. 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 Principal Diagnosis colitis secondary to covid-> resolved dehydration secondary to covid colitis acute kidney injury secondary to dehydration -> resolved covid pneumonia Discharge Exam The patient appeared to be recuperating Vital signs as documented. Lungs are clear to auscultation and appear unlabored Cardiac exam, Rhythm is regular.. No murmurs, rubs or gallops. Abdominal exam reveals normal bowel sounds, soft non tender, no masses Extremities are nonedematous and both pedal pulses are normal. Neurologic exam is alert and oriented, no focal loss of strength or sensation Skin is without bruises or rashes Psychologically is without concerns for anxiety or depression. 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 -CRP climbing , procalcitonin is negative unable to check stools as no diarrhea the pt continues to improve and has no worsening hypoxemia will discharging completing dexamethasone dosing (2) Atrial flutter, paroxysmal: Patient states he has not had any difficulties since about 3 years ago. He is on Diltiazem 240 XR and Toprol XR 200 - His ECG support and was in NSR as recently as 2 weeks ago. - CHADS VASC- 2 -Patient continues on Cardizem p.o. his metoprolol dose will be reduced this is a fairly large dose of 200 at bedtime this will be down to 50 tartrate twice daily Patient agrees to go out on Eliquis therapy he was warned about the venal thromb oembolism associated with Covid however still is reluctant to consider using this for long-term he wishes to have an appointment made with his primary care to discuss this I did put a message out to their nurse navigator to hopefully arrange this for this week (3) Dyslipidemia: Triglycerides in Jul, LDL 75, HDL 29 - not on statin as outpatient - Was doing diet- but has been gaining weight with less activity with COVID Currently on interested in starting a statin at this time (4) Hypertension: Controlled, will have lower dose of beta-javi on discharge (5) Hypovolemia: - Has multiple sources of free water loss, with diarrhea, fevers with sweats, and decreased PO intake- - HUSSAIN-resolved (6) CKD (chronic kidney disease), stage III: CKD III with HUSSAIN stage II - Pre-renal likely as above, aggravated with diuretic use-improved she is now back to baseline resume medications at discharge - (7) DMII (diabetes mellitus, type 2): return to Metformin dosing (8) Left bundle branch block (LBBB): Baseline not new - continue to follow Recent echocardiogram with preserved EF and recent nuclear stress test normal (9) Hypokalemia: Resolved (10) Nephrolithiasis: Has long history of both uric acid and calcium oxalate stones, passed a stone recently follow-up with urology as previously mentioned (11) Obesity (BMI 35.0-39.9 without comorbidity): Continue with weight loss and activity Total Time Total Time Spent Total Time Spent (In Minutes): It required greater than 30 minutes to prepare this patient for discharge Discharge Plan Discharge Items Patient Disposition: Home - Self-Care Reason For Visit: COVID Discharge Diagnosis: covid infection pneumonia colitis Condition on Discharge: Fair Activity: Per Instructions section Activity Comment: rest and recover Non-emergency contact: Primary Care Provider Call non-emergency contact if: your symptoms worsen and you have a fever Follow-up/Referrals: Franco Valdez MD [Primary Care Provider] - Diet: Regular Addtl Attending Provider Instructions: Home Isolation COVID-19 Instructions, you should be on home isolation until 10/25/20. please finish all of your prescription. The following information about Home Isolation is from the CDC Website: https://www.cdc.gov/coronavirus/2019-ncov/hcp/fgvdptdb-crvfleb-jbccco.html Stay home except to get medical care People who are mildly ill with COVID-19 are able to isolate at home during their illness. You should restrict activities outside your home, except for getting medical care. Do not go to work, school, or public areas. Avoid using public transportation, ride-sharing, or taxis. Separate yourself from other people and animals in your home People: As much as possible, you should stay in a specific room and away from other people in your home. Also, you should use a separate bathroom, if available. Animals: You should restrict contact with pets and other animals while you are sick with COVID-19, just like you would around other people. Although there have not been reports of pets or other animals becoming sick with COVID-19, it is still recommended that people sick with COVID-19 limit contact with animals until more information is known about the virus. When possible, have another member of your household care for your animals while you are sick. If you are sick with COVID-19, avoid contact with your pet, including petting, snuggling, being kissed or licked, and sharing food. If you must care for your pet or be around animals while you are sick, wash your hands before and after you interact with pets and wear a face mask. Call ahead before visiting your doctor If you have a medical appointment, call the healthcare provider and tell them that you have or may have COVID-19. This will help the healthcare providers office take steps to keep other people from getting infected or exposed. Wear a face mask You should wear a face mask when you are around other people (e.g., sharing a room or vehicle) or pets and before you enter a healthcare providers office. If you are not able to wear a face mask (for example, because it causes trouble breathing), then people who live with you should not stay in the same room with you, or they should wear a face mask if they enter your room. Cover your coughs and sneezes Cover your mouth and nose with a tissue when you cough or sneeze. Throw used tissues in a lined trash can. Immediately wash your hands with soap and water for at least 20 seconds or, if soap and water are not available, clean your h ands with an alcohol-based hand sheeter helper that contains at least 60% alcohol. Clean your hands often Wash your hands often with soap and water for at least 20 seconds, especially after blowing your nose, coughing, or sneezing; going to the bathroom; and before eating or preparing food. If soap and water are not readily available, use an alcohol-based hand sheeter helper with at least 60% alcohol, covering all surfaces of your hands and rubbing them together until they feel dry. Soap and water are the best option if hands are visibly dirty. Avoid touching your eyes, nose, and mouth with unwashed hands. Avoid sharing personal household items You should not share dishes, drinking glasses, cups, eating utensils, towels, or bedding with other people or pets in your home. After using these items, they should be washed thoroughly with soap and water. Clean all high-touch surfaces everyday High touch surfaces include counters, tabletops, doorknobs, bathroom fixtures, toilets, phones, keyboards, tablets, and bedside tables. Also, clean any surfaces that may have blood, stool, or body fluids on them. Use a household c leaning spray or wipe, according to the label instructions. Labels contain instructions for safe and effective use of the cleaning product including precautions you should take when applying the product, such as wearing gloves and making sure you have good ventilation during use of the product. Monitor your symptoms Seek prompt medical attention if your illness is worsening (e.g., difficulty breathing).Beforeseeking care, call your healthcare provider and tell them that you have, or are being evaluated for, COVID-19. Put on a face mask before you enter the facility. These steps will help the healthcare providers office to keep other people in the office or waiting room from getting infected or exposed. Ask your healthcare provider to call the local or state health department. Persons who are placed under active monitoring or facilitated self- monitoring should follow instructions provided by their local health department or occupational health professionals, as appropriate. When working with your local health department check their available hours. If you have a medical emergency and need to call 911, notify the dispatch personnel that you have, or are being evaluated for COVID-19. If possible, put on a face mask before emergency medical services arrive. Discontinuing home isolation Patients with confirmed COVID-19 should remain under home isolation precautions until the risk of secondary transmission to others is thought to be low. The decision to discontinue home isolation precautions should be made on a [id number] basis, in consultation with healthcare providers and state and local health departments. Addtl Chain Saw Operator Provider Instructions: Medication Instructions: Your condition is typically treated with an anticoagulant. Anticoagulants will thin your blood to help prevent new clots. * You should take her medication exactly as directed. * Never skip a dose. * Never take a double dose. If you miss a dose, take it as soon as you remember. Call your Primary Care doctor if you experience any of the following: * Swelling or Pain in your leg * Sudden, continuous pain deep in a muscle * Pain that worsens when you are active or when you stand still for a long time * Chest Pain * Sudden Shortness of Breath * Rapid or pounding heart beat * Fainting * Dizziness * Cough with blood or bloody sputum * Sweating more than normal * Bruises * Heavy or uncontrolled bleeding * Blood in your urine, stool or vomit * Black or tarry stools Caring for Your Self at Home: * Avoid sitting, standing or lying down for long periods without moving your legs and feet * When traveling by car, stop to get out and move around at least once every 3 hours * On long airplane, train or bus rides, get up and move around when possible * If you can't get up, wiggle your toes and tighten your calves to keep your blood moving Follow Up: It is important for you to keep your follow up appointments with your medical provider. Pending Studies at Discharge: No Stand-Alone Forms: My [facility], Smoking Cessation Medications and DC Order Prescriptions: New metoprolol tartrate 50 mg Tablet 50 mg PO BID Qty: 60 RF: 3 Eliquis 5 mg Tablet 5 mg PO BID Qty: 60 RF: 3 dexamethasone [Decadron] 6 mg tablet 6 mg PO DAILY Qty: 6 RF: 0 Continued potassium chloride 10 mEq tablet extended release 10 meq PO DAILY Qty: 90 RF: 3 allopurinol 300 mg tablet 300 mg PO QPM Qty: 90 RF: 3 hydrochlorothiazide 50 mg tablet 50 mg PO DAILY Qty: 90 RF: 3 metformin 500 mg tablet 500 mg PO BID Qty: 180 RF: 3 tamsulosin 0.4 mg capsule 0.4 mg PO HS Qty: 90 RF: 3 amoxicillin 500 mg capsule 2,000 mg PO .BEFORE DENTIST PRN (Reason: BEFORE DENTAL PROCEDURES) RF: 0 diltiazem HCl [Tiadylt ER] 240 mg capsule,extended release 24 hr 240 mg PO DAILY Qty: 90 RF: 3 acetaminophen [Tylenol Extra Strength] 500 mg Tablet 1,000 mg PO Q6H PRN (Reason: Fever Or Pain) RF: 0 vitamin A-vitamin C-vit E-min Tablet 1 tab PO DAILY RF: 0 Discontinued metoprolol succinate 200 mg tablet extended release 24 hr 200 mg PO QPM RF: 0 Discharge Orders: Discharge Order (Routine); Ordered 10/19/20 Ordered By: Amari Cruz Admission Data Admit Date/Time: 10/14/20 18:28 Attending Provider: Amari Cruz Admit Provider: Alexa Fernandez Primary Care Provider: Franco Valdez Other Providers: Alexa Fernandez ; Misael Crespo Other Interventions: Discharge Summary Assessment (RN) Last Done: 10/19/20 12:58 Coding Level of Care Code D/C Day Management >30 mins Diagnoses COVID-19 U07.1 Atrial flutter, paroxysmal I48.92 Dyslipidemia E78.5 Hypertension I10 Hypertension type: essential hypertension Hypovolemia E86.1 CKD (chronic kidney disease), stage III N18.32 Chronic kidney disease stage 3 subtype: stage 3b (GFR 30-44) DMII (diabetes mellitus, type 2) E11.9; Z79.4 Diabetes mellitus manager intermediate insulin use: with manager intermediate use Diabetes mellitus complication status: without complication Left bundle branch block (LBBB) I44.7 Hypokalemia E87.6 Nephrolithiasis N20.0 Obesity (BMI 35.0-39.9 without comorbidity) E66.9
== END 2020-10-19 14:15 | disposition home or self-care (01) | DRG 177 ==
LOC: ED 14:45 → 2S 18:28 → SUATTDRO 18:28 → 2S 20:30 → 2E 10-18 18:29